=== PATIENT | male | born 1965 | race American Indian/Alaskan Native ===

== ENCOUNTER 2019-03-20 13:08 | Emergency (ER) | payer OTHER ==
[~2019-03-20] VITALS: Ht 180.3 cm; Wt 88.5 kg
--- OUTSIDE RECORDS SUMMARY | ~2019-03-20 | XMS | Clinical Summary ---
Demographics + + + | Address | [address] | | | [place] [address] | + + + | Home Phone | | + + + | Preferred Language | Unknown | + + + | Marital Status | Unknown | + + + | Druze Affiliation | Unknown | + + + | Race | Unknown | + + + | Ethnic Group | Unknown | + + + Author + + + | Author | Merged With [facility] (Historical as of | | | 02-05-19) | + + + | Organization | Merged With [facility] (Historical as of | | | 02-05-19) | + + + | Address | Unknown | + + + | Phone | Unavailable | + + + Support + + + + + | Name | Relationship | Address | Phone | + + + + + | Amanda Medina | ECON | [address] | | | | | [place], [place] | | | | | [address] | | + + + + + Care Team Providers + +------+ + | Care Parts Processor Name | Role | Phone | + +------+ + | Kanika Dominguez PA-C | PP | | + +------+ + Allergies Not on File Current Medications Not on file Active Problems Not on file Social History + +-------+ +--------+------+ | Tobacco Use | Types | Packs/Day | Years | Date | | | | | Used | | + +-------+ +--------+------+ | Never Assessed | | | | | + +-------+ +--------+------+ + + + | Sex Assigned at | Date Recorded | | | | + + + | Not on file | | + + + Plan of Treatment + + + + + | Health Maintenance | Due Date | Last Done | Comments | + + + + + | Vaccine: | | | | | Dtap/Tdap/Td (1 - | 6 | | | | Tdap) | | | | + + + + + | Colon Cancer | | | | | Screening | 7 | | | | (Colonoscopy) | | | | + + + + + | Vaccine: Zoster (1 | | | | | of 2) | 7 | | | + + + + + | Vaccine: Influenza | | | | | (#1) | 9 | | | + + + + + Results Not on filefrom Last 3 Months Insurance + +--------+ +------+-------+ + | Payer | Benefi | Subscriber | Type | Phone | Address | | | t Plan | ID | | | | | | / | | | | | | | Group | | | | | + +--------+ +------+-------+ + | [employer] | YELLOW | [id number] | | | | | PLANS | [place] | | | | | + +--------+ +------+-------+ + | MEDICAID | [place] | [id number] | | | [address] | | | N | | | | [place] | | | [place] | | | | [address] | | | [employer]NER [place] | | | | | + +--------+ +------+-------+ + + +--------+ +--------+ + + | Guarantor Name | Accoun | Relation to | Date | Phone | Billing Address | | | t Type | Patient | of | | | | | | | | | | + +--------+ +--------+ + + | [place] | Person | Self [birth year] Home: | [address] | | | al/Fam | | 1966 | [phone] | [place] [address] | | | [place] | | | [address] | | + +--------+ +--------+ + +"
--- OUTSIDE RECORDS SUMMARY | ~2019-03-20 | XMS | Clinical Summary ---
Demographics + + + | Address | [address] | | | [place] [address] | + + + | Home Phone | | + + + | Preferred Language | Unknown | + + + | Marital Status | Unknown | + + + | Oriental Orthodox Affiliation | Unknown | + + + | Race | Unknown | + + + | Ethnic Group | Unknown | + + + Author + + + | Author | [facility] (Historical as of | | | 02-05-19) | + + + | Organization | [facility] (Historical as of | | | 02-05-19) | + + + | Address | Unknown | + + + | Phone | Unavailable | + + + Support + + + + + | Name | Relationship | Address | Phone | + + + + + | Amanda Medina | ECON | [address] | | | | | [place], [place] | | | | | [address] | | + + + + + Care Team Providers + +------+ + | Care Director Of Casework Department Name | Role | Phone | + [...] | | + +--------+ +------+-------+ + | [employer] [facility] | YELLOW | [id number] | | | | | PLANS | [place] | | | | | + +--------+ +------+-------+ + | MEDICAID | [place] | [id number] | | | [address] | | | N | | | | [place] | | | [place] | | | | [address] | | | 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
--- OUTSIDE RECORDS SUMMARY | ~2019-03-20 | XMS | Clinical Summary ---
Demographics + + + | Address | [address] | | | [place] [address] | + + + | Home Phone | | + + + | Preferred Language | Unknown | + + + | Marital Status | | + + + | Synagogue Affiliation | Unknown | + + + | Race | Unknown | + + + | Ethnic Group | Unknown | + + + Author + + + | Author | [facility] | | | and [place] | + + + | Organization | [facility] | | | and [place] | + + + | Address | Unknown | + + + | Phone | Unavailable | + + + Support + + +---------+ + | Name | Relationship | Address | Phone | + + +---------+ + | Close,Barbara | ECON | Unknown | | + + +---------+ + Care Team Providers + +------+ + | Care Hand Etcher Name | Role | Phone | + [...] + +---------+ + | Alcohol Use | Drinks/We | oz/Week | Comments | | | ek | | | + + +---------+ + | No | 0 | 0.0 | | | | Standard | | | | | drinks or | | | | | | | | | | equivalen | | | | | t | | | + + +---------+ + [...] Filed Vital Signs + + + + | Vital Sign | Reading | Time Taken | + + + + | Blood Pressure | 120/80 | 03/22/2018 1130 PDT | + + + + | Pulse | 85 | 03/22/20181129 PDT | + + + + | Temperature | 36.2 C (97.2 F) | 09/02/20175 PDT | + + + + | Respiratory Rate | 16 | 03/22/20181129 PDT | + + + + | Oxygen Saturation | 98% | 03/22/20181129 PDT | + + + + | Inhaled Oxygen | - | - | | Concentration | | | + + + + | Weight | 100.7 kg (222 lb 0.1 | 03/22/2018 1130 PDT | | | oz) | | + + + + | Height | 180.3 cm (5' 11") | 02/17/2018800 PDT | + + + + | Body Mass Index | 30.96 | 02/17/2018800 PDT | + + + + Plan of Treatment [...] | [employer] | MODA | [id number] | | [phone] | | Medica | | MEDICAID HMO | HEALTH | | 017-Pr | 1 | | id | | | MDCD | | esent | | | | | | HMO [place] | | | | | | + +--------+ +--------+ +---------+--------+ | [facility] | IHS | [id number] | 06/22/19 | | | Indemn | | SERVICE | YELLOW | | 01-Pre | | | margauxy | | | [place] | | sent | | | | [...] | [address] | | | al/Fam | | 1966 | [phone] | [place] | | | [place] | | | [address] ([place]) | [address] | + +--------+ +--------+ + + Advance Directives Patient has advance care planning documents, and code status on file. For more information, please contact:[facility] [place] [address] + + + + + | Code Status | Date | Date | Comments | | | Activated | Inactivated | | + + + + + | Full Code | 09/02/2017 | 09/02/2017 | | | | 16:50 | 19:06 | | + + + + +
--- OUTSIDE RECORDS SUMMARY | ~2019-03-20 | XMS | Clinical Summary ---
Demographics + + + | Address | [address] | | | [place] [address] | + + + | Home Phone | | + + + | Preferred Language | Unknown | + + + | Marital Status | | + + + | Voodoo Affiliation | Unknown | + + + | Race | Unknown | + + + | Ethnic Group | Unknown | + + + Author + + + | Author | [facility] | | | and [place] | + + + | Organization | [facility] | | | [...] Team Providers + +------+ + | Care Brick Off Bearer Name | Role | Phone | + [...] | [employer] | MODA | [id number] | | [phone] | | Medica | | MEDICAID HMO | HEALTH | | 017-Pr | 1 | | id | | | MDCD | | esent | | | | | | HMO [place] | | | | | | + +--------+ +--------+ +---------+--------+ | [facility] | IHS | [id number] | 06/22/19 | | | Indemn | [...] | | [place] | | | [address] ([place]) | [address] | + +--------+ +--------+ + + Advance Directives Patient has advance care planning documents, and code status on file. For more information, please contact:[facility] [place] [address] + + + + + | Code Status | Date | Date | Comments | | | Activated | Inactivated | | + + + + + | Full Code | 09/02/2017 | 09/02/2017 | | | | 16:50 | 19:06 | | + + + + +
[~2019-03-20 13:08] MED LIST: ACETAMINOPHEN-1 EAC1 PO; AUGMENTIN 875-1 EACH PO; CEPHALEXIN500 MG PO; CIALIS5 MG PO; HYDROCHLOROTHIA25 MG PO; LISINOPRIL20 MG PO; NORCO 5-325 TA1 EACH PO; PREDNISONE20 MG PO; TESTOSTERO100 MG/1 M IM; TRAZODONE HCL50 MG PO
--- OUTSIDE RECORDS SUMMARY | 2019-03-20 13:10 | XMS ---
PreManage Notification: [place] Security Safety Net Maker Events No recent Security Events currently on file [facility] There are no care providers on record at this time. Moris has no Care Guidelines for this patient. Ivon VISIT COUNT (12 MO.) 2 [facility] TOTAL 2 NOTE: Visits indicate total known visits. ED/UCC VISIT TRACKING (12 MO.) 03/20/2019 13:09 [facility] [place] TYPE: Emergency COMPLAINT: - HAND PAIN 04/09/2018 18:[address] [facility] [place] TYPE: Emergency COMPLAINT: - TOOTH PAIN DIAGNOSES: - Other care home (current) drug therapy - Tobacco use - Essential (primary) hypertension - Other specified disorders of teeth and supporting structures INPATIENT VISIT TRACKING (12 MO.) No inpatient visits to display in this time frame [email or web address]
[2019-03-20] MEDS ORDERED: DOXYCYCLINE HY100 MG PO (13:44)
== END 2019-03-20 13:54 | disposition home or self-care (01) ==
LOC: ED 13:08
DX: L03.011 Cellulitis of right finger (principal); I10 Essential (primary) hypertension; Z87.891 Personal history of nicotine dependence; Z79.899 Other long term (current) drug therapy
CPT/HCPCS: 99283

== ENCOUNTER 2019-07-05 13:39 | Emergency (ER) | payer OTHER ==
[~2019-07-05] VITALS: Ht 180.3 cm; Wt 88.5 kg
--- OUTSIDE RECORDS SUMMARY | ~2019-07-05 | XMS | Encounter Summary ---
Demographics + + + | Address | [address] | | | [place] [address] | + + + | Home Phone | | + + + | Preferred Language | Unknown | + + + | Marital Status | | + + + | Latter Day Affiliation | Unknown | + + + | Race | Unknown | + + + | Ethnic Group | Unknown | + + + Author + + + | Author | [facility] | | | and [place] | + + + | Organization | [facility] | | | and [place] | + + + | Address | Unknown | + + + | Phone | Unavailable | + + + Support + + +---------+ + | Name | Relationship | Address | Phone | + + +---------+ + | Barbara Close | ECON | Unknown | | + + +---------+ + Care Team Providers + +------+ + | Care Inside Sales Coordinator Name | Role | Phone | + +------+ + | Kanika Dominguez PA-C | PCP | | + +------+ + Encounter Details +--------+ + + + + | Date | Type | Department | Care Team | Description | +--------+ + + + + | 06/29/ | Abstract | [facility] [place] | Surya Brower, | | | 2015 | | [address]UR[address]UR[address] | [place] [address] | | | | | [address] | [address] [place] | | | | | [place] | [place] [address] | | | | | [address] | [phone] | | | | | [phone] | | | +--------+ + + + + Social History + +-------+ +--------+------+ | Tobacco Use | Types | Packs/Day | Years | Date | | | | | Used | | + +-------+ +--------+------+ | Never Smoker | | | | | + +-------+ +--------+------+ + +------+---+---+ | Smokeless Tobacco: | Chew | | | | Former User | | | | + +------+---+---+ + + | Comments: QUIT 03/22/10 | + + + + +---------+ + | Alcohol Use | Drinks/Week | oz/Week | Comments | + + +---------+ + | No | 0 Standard drinks | 0.0 | | | | or equivalent | | | + + +---------+ + + + + | Sex Assigned at | Date Recorded | | | | + + + | Not on file | | + + + + + + + | Job Start Date | Occupation | Industry | + + + + | Not on file | Not on file | Not on file | + + + + + + + + | Travel History | Travel Start | Travel End | + + + + + + | No recent travel history available. | + + documented as of this encounter Plan of Treatment Not on filedocumented as of this encounter Visit Diagnoses Not on filedocumented in this encounter"
--- OUTSIDE RECORDS SUMMARY | ~2019-07-05 | XMS | Encounter Summary ---
Demographics + + + | Address | [address] | | | [place] [address] | + + + | Home Phone | | + + + | Preferred Language | Unknown | + + + | Marital Status | | + + + | Temple Affiliation | Unknown | + + + | Race | Unknown | + + + | Ethnic Group | Unknown | + + + Author + + + | Author | [facility] | | | and [place] | + + + | Organization | [facility] | | | [...] Team Providers + +------+ + | Care Plumber'S Helper Name | Role | Phone | + +------+ + | Kanika Dominguez PA-C | PCP | | + +------+ + Encounter Details +--------+ + + + + | Date | Type | Department | Care Team | Description | +--------+ + + + + | 11/22/ | Orders Only | [facility] [place] | Uday Quezada, | Left lumbar | | 2016 | | NEUROSUR[address]ERY [address] | DO [address] | radiculopathy; | | | | [address] | [address] [place] | Chronic low back | | | | [place], [place] | [address] | pain, unspecified | | | | [address] | | back pain | | | | [phone] | | laterality, with | | | | | | sciatica presence | | | | | | unspecified; DDD | | | | | | (degenerative disc | | | | | | disease), lumbar; | | | | | | Spinal stenosis of | | | | | | lumbar region; Facet | | | | | | arthritis of lumbar | | | | | | region ([facility]) | +--------+ + + + + Social History + +-------+ +--------+------+ | Tobacco Use | Types | Packs/Day | Years | Date | | | | | Used | | + +-------+ +--------+------+ | Never Smoker | | | | | + +-------+ +--------+------+ + +------+---+---+ | Smokeless Tobacco: | Chew | | | | Current User | | | | + +------+---+---+ + + | Comments: PARRISH 03/22/10 Started using in April 2015 | + + + + +---------+ + [...] filedocumented as of this encounter Visit Diagnoses + + | Diagnosis | + + | Left lumbar radiculopathy Thoracic or lumbosacral neuritis or radiculitis, | | unspecified | + + | Chronic low back pain, unspecified back pain laterality, with sciatica presence | | unspecified | + + | DDD (degenerative disc disease), lumbar Degeneration of lumbar or lumbosacral | | intervertebral disc | + + | Spinal stenosis of lumbar region Spinal stenosis, lumbar region, without neurogenic | | claudication | + + | Facet arthritis of lumbar region Lumbosacral spondylosis without myelopathy | + + documented in this encounter"
--- OUTSIDE RECORDS SUMMARY | ~2019-07-05 | XMS | Encounter Summary ---
Demographics + + + | Address | [address] | | | [place] [address] | + + + | Home Phone | | + + + | Preferred Language | Unknown | + + + | Marital Status | | + + + | Moravian Affiliation | Unknown | + + + | Race | Unknown | + + + | Ethnic Group | Unknown | + + + Author + + + | Author | [facility] | | | and [place] | + + + | Organization | [facility] | | | and [...] Team Providers + +------+ + | Care General Office Assistant Name | Role | Phone | + +------+ + | Kanika Dominguez PA-C | PCP | | + +------+ + Encounter Details +--------+ + + + + | Date | Type | Department | Care Team | Description | +--------+ + + + + | 07/02/ | Hospital | [facility] | Uday Quezada, | Back pain, | | 2016 | Encounter | MED [address] XRAY [address] | DO [address] | unspecified back | | | | [place] | [address] [place] | pain laterality, | | | | [place] [address] | [id number] | unspecified location | | | | [phone] | | | +--------+ + + + [...] +------+---+---+ + + | Comments: QUIT 03/22/10 Started using in April 2015 | [...] + + documented as of this encounter Medications at Time of Discharge + + + +---------+--------+ + | Medication | Sig | Dispensed | Refills | Start | End Date | | | | | | Date | | + + + +---------+--------+ + | tadalafil (CIALIS) | Take 5 mg by mouth | | 0 | | | | 5 MG tablet | as needed for | | | | | | | Erectile | | | | | | | Dysfunction. | | | | | + + + +---------+--------+ + | acetaminophen | Take 325 mg by mouth | | 0 | | | | (TYLENOL) 325 mg | every 4 hours as | | | | 7 | | tablet | needed for Pain. | | | | | + + + +---------+--------+ + | | Take 325 tablets by | | 0 | | | | Acetaminophen-Codein | mouth Daily as | | | | 6 | | e (TYLENOL WITH | needed. Every 4 hrs | | | | | | CODEINE #3 PO) | | | | | | + + + +---------+--------+ + | | Take 1-2 tablets by | | 0 | | | | HYDROcodone-acetamin | mouth every 6 hours | | | | 7 | | ophen (NORCO) 5-325 | as needed for Pain. | | | | | | mg per tablet | | | | | | + + + +---------+--------+ + | lisinopril | Take 40 mg by mouth | | 0 | | | | (PRINIVIL,ZESTRIL) | Daily. | | | | 8 | | 40 MG tablet | | | | | | + + + +---------+--------+ + | Naproxen Sodium | Take 440 tablets by | | 0 | | | | (ALEVE PO) | mouth Daily. | | | | 7 | + + + +---------+--------+ + | | Take 1 tablet by | | 0 | | | | oxyCODONE-acetaminop | mouth every 8 hours | | | | 6 | | hen (PERCOCET) 5-325 | as needed for Pain. | | | | | | mg per tablet | | | | | | + + + +---------+--------+ + | Testosterone 12.5 | by Implant route. | | 0 | | | | MG PLLT | | | | | 8 | + + + +---------+--------+ + | traMADol (ULTRAM) | Take 50 mg by mouth | | 0 | | | | 50 mg tablet | every 6 hours as | | | | 7 | | | needed for Pain. | | | | | + + + +---------+--------+ + documented as of this encounter Plan of Treatment Not on filedocumented as of this encounter Procedures + +--------+ + + + | Procedure Name | Priori | Date/Time | Associated Diagnosis | Comments | | | ty | | | | + +--------+ + + + | XR LUMBAR SPINE 4 + | Routin | 07/02/2015 | Back pain, | Results for this | | VW | e | 1:41 PM | unspecified back | procedure are in the | | | | PST | pain laterality, | results section. | | | | | unspecified location | | + +--------+ + + + documented in this encounter Results XR Lumbar Spine 4 + Vw (07/02/2015 1:41 PM PST) + + | Specimen | + + | | + + + + + | Narrative | Performed At | + + + | FOUR VIEWS LUMBAR SPINE 07/02/2015 1:41 PM CLINICAL HISTORY: back | [facility] | | pain COMPARISON: LUMBAR MRI MAY 2015, LUMBAR RADIOGRAPHS | [facility] | | NOVEMBER 2011 FINDINGS: Five non rib-bearing, lumbar type vertebrae | [facility] | | are visible. An AP view and lateral views in neutral, flexed and | - IMAGING | | extended positions are provided. There is mild rightward lumbar | | | curvature. Lumbar vertebral height is maintained, without evident | | | fracture or spondylolysis. There is early disc space narrowing at | | | L4-5 and multilevel vertebral spondylosis and facet hypertrophy. | | | Mild retrolisthesis at L3-4 persists with extension but resolves | | | with flexion. Mild anterolisthesis at L4-5 persists with extension | | | but is subjectively greater with flexion. The sacroiliac joints and | | | imaged sacrum, bony pelvis and lower ribs are unremarkable. Soft | | | tissues are unremarkable. IMPRESSION - 1. RIGHTWARD LUMBAR | | | CURVATURE WITH MULTILEVEL SPONDYLOSIS AND MILD SPONDYLOLISTHESIS AT | | | L3-4 AND L4-5 DISCUSSED. Dictated and Signed by: Tommy Gomez | | | Electronically signed: 07/02/2015 3:06 PM | | + + + + + | Procedure Note | + + | Baron, Rad Results In - 07/02/2015 3:09 PM PST FOUR VIEWS LUMBAR SPINE 07/02/2015 1:41 | | PMCLINICAL HISTORY: back painCOMPARISON: LUMBAR MRI MAY 2015, LUMBAR RADIOGRAPHS | | NOVEMBER 2011FINDINGS: Five non rib-bearing, lumbar type vertebrae are visible. An AP | | viewand lateral views in neutral, flexed and extended positions are provided. Thereis | | mild rightward lumbar curvature. Lumbar vertebral height is maintained,without evident | | fracture or spondylolysis. There is early disc space narrowingat L4-5 and multilevel | | vertebral spondylosis and facet hypertrophy. Mildretrolisthesis at L3-4 persists with | | extension but resolves with flexion. Mildanterolisthesis at L4-5 persists with | | extension but is subjectively greater withflexion. The sacroiliac joints and imaged | | sacrum, bony pelvis and lower ribsare unremarkable. Soft tissues are | | unremarkable.IMPRESSION -1. RIGHTWARD LUMBAR CURVATURE WITH MULTILEVEL SPONDYLOSIS AND | | MILDSPONDYLOLISTHESIS AT L3-4 AND L4-5 DISCUSSED.Dictated and Signed by: Tommy | | MD Jason Electronically signed: 07/02/2015 3:06 PM | |flexion. The sacroiliac joints and imaged sacrum, bony pelvis and lower ribs | |are unremarkable. Soft tissues are unremarkable. | | | |IMPRESSION - | | | |1. RIGHTWARD LUMBAR CURVATURE WITH MULTILEVEL SPONDYLOSIS AND MILD | |SPONDYLOLISTHESIS AT L3-4 AND L4-5 DISCUSSED. | | | |Dictated and Signed by: Tommy Gomez MD | | Electronically signed: 07/02/2015 3:06 PM | + + + + + + + | Performing | Address | City[facility] | Phone Number | | Organization | | | | + + + + + | [facility] | [address] | [place] | [phone] | | [facility] | | [address] | | | - IMAGING | | | | + + + + + documented in this encounter Visit Diagnoses + + | Diagnosis | + + | Back pain, unspecified back pain laterality, unspecified location | + + documented in this encounter"
--- OUTSIDE RECORDS SUMMARY | ~2019-07-05 | XMS | Encounter Summary ---
Demographics + + + | Address | [address] | | | [place] [address] | + + + | Home Phone | | + + + | Preferred Language | Unknown | + + + | Marital Status | | + + + | Rastafarian Affiliation | Unknown | + + + | Race | Unknown | + + + | Ethnic Group | Unknown | + + + Author + + + | Author | [facility] | | | and [place] | + + + | Organization | [facility] | | | and [...] Team Providers + +------+ + | Care Wood Gluer Name | Role | Phone | + +------+ + | Kanika Dominguez PA-C | PCP | | + +------+ + Encounter Details +--------+ + + + + | Date | Type | Department | Care Team | Description | +--------+ + + + + | 05/01/ | Episode | [facility] [place] | [place], | | | 2017 | Changes | ORTHOPEDIC SURGERY | Leti Sanders MA | | | | | [place] | | | | | | [place] | | | | | | [address] | | | | | | [phone] | | | +--------+ + + + [...]
--- OUTSIDE RECORDS SUMMARY | ~2019-07-05 | XMS | Encounter Summary ---
Demographics + + + | Address | [address] | | | [place] [address] | + + + | Home Phone | | + + + | Preferred Language | Unknown | + + + | Marital Status | | + + + | Hinduism Affiliation | Unknown | + + + | Race | Unknown | + + + | Ethnic Group | Unknown | + + + Author + + + | Author | [facility] | | | and [place] | + + + | Organization | [facility] | | | [...] Team Providers + +------+ + | Care Shift Production Associate Name | Role | Phone | + +------+ + | Kanika Dominguez PA-C | PCP | | + +------+ + Encounter Details +--------+ + + + + | Date | Type | Department | Care Team | Description | +--------+ + + + + | 06/06/ | Orders Only | [facility] [place] | Uday Quezada, | Back pain, | | 2015 | | NEUROSURGERY [address] | DO [address] | unspecified back | | | | [address] | [address] | pain laterality, | | | | [place], [place] | [address] | unspecified location | | | | [address] | | (Primary Dx) | | | | [phone] | | | +--------+ + + + [...] Not on filedocumented as of this encounter Results XR Lumbar Spine 4 + Vw (07/02/2015 1:41 PM PST) + + | Specimen | + + | | + + + + + | Narrative | Performed At | + + + | FOUR VIEWS LUMBAR SPINE 07/02/2015 1:41 PM CLINICAL HISTORY: back | [facility] | | pain COMPARISON: LUMBAR MRI MAY 2015, LUMBAR RADIOGRAPHS | [facility] | | NOVEMBER 2011 FINDINGS: Five non rib-bearing, lumbar type vertebrae | [facility] | | are visible. An AP view [...] + + | Performing | Address | City/State/Zipcode | Phone Number | | Organization | | | | + + + + + | [facility] | [address] | [place] | [phone] | | [facility] | | [address] | | | - IMAGING | | | | + + + + + documented in this encounter Visit Diagnoses + + | Diagnosis | + + | Back pain, unspecified back pain laterality, unspecified location - Primary | + + documented in this encounter"
--- OUTSIDE RECORDS SUMMARY | ~2019-07-05 | XMS | Encounter Summary ---
Demographics + + + | Address | [address] | | | [place] [address] | + + + | Home Phone | | + + + | Preferred Language | Unknown | + + + | Marital Status | | + + + | Zoroastrianism Affiliation | Unknown | + + + | Race | Unknown | + + + | Ethnic Group | Unknown | + + + Author + + + | Author | [facility] | | | and [place] | + + + | Organization | [facility] | | | and [...] Team Providers + +------+ + | Care Hotel Room Attendant Name | Role | Phone | + +------+ + | Kanika Dominguez PA-C | PCP | | + +------+ + Reason for Visit + + + | Reason | Comments | + + + | New Patient | left shoulder pain | + + + Evaluate & Treat (Routine) +--------+ + + + + + | Status | Reason | Specialty | Diagnoses / | Referred By | Referred To | | | | | Procedures | Contact | Contact | +--------+ + + + + + | Closed | Specialty | Orthopedic | Diagnoses | Damien, | Luis Alfredo, | | | Services | Surgery | Shoulder | Uday Umanzor DO | Ramón Brown MD | | | Required | | pain, | [address] | [address] | | | | | unspecified | [address] | [place], | | | | | chronicity, | [place], [place] | [place] [address] | | | | | unspecified | [address] | Phone: | | | | | laterality | Phone: | [phone] | | | | | | [phone] | Fax: | | | | | | Fax: | [phone] | | | | | | [phone] | | +--------+ + + + + + Encounter Details +--------+---------+ + + + | Date | Type | Department | Care Team | Description | +--------+---------+ + + + | 12/04/ | Office | [facility] [place] | Uday Quezada, | Tear of left rotator | | 2017 | Visit | ORTHOPEDIC SURGERY | DO [address] | cuff, unspecified | | | | [address] | [address] [place] | tear extent (Primary | | | | [place] | [address] | Dx); Arthrosis of | | | | [address] | | left | | | | [phone] | Ramón Lobato, | acromioclavicular | | | | | MD [address] [facility] | joint; Biceps | | | | | [place] | tendonitis on left | | | | | [address] | | | | | | | | +--------+---------+ + + + Social History + +-------+ [...] + + documented as of this encounter Last Filed Vital Signs + + + + + | Vital Sign | Reading | Time Taken | Comments | + + + + + | Blood Pressure | - | - | | + + + + + | Pulse | - | - | | + + + + + | Temperature | 36.4 C (97.6 F) | 12/04/2016 3:10 PM | | | | | PDT | | + + + + + | Respiratory Rate | - | - | | + + + + + | Oxygen Saturation | - | - | | + + + + + | Inhaled Oxygen | - | - | | | Concentration | | | | + + + + + | Weight | 106.6 kg (235 lb) | 12/04/2016 3:10 PM | | | | | PDT | | + + + + + | Height | 180.3 cm (5' 11") | 12/04/2016 3:10 PM | | | | | PDT | | + + + + + | Body Mass Index | 32.78 | 12/04/2016 3:10 PM | | | | | PDT | | + + + + + documented in this encounter Progress Notes Ramón Lobato MD - 12/04/2016 3:30 PM PDTFormatting of this note might be different fro m the original. History of present illness: Gianfranco is a 51 y.o. 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 home to [facility] to work for the [employer] Past Medical History: Diagnosis Date Benign essential hypertension BPH (benign prostatic hyperplasia) Chronic low back pain 07/25/2015 DDD (degenerative disc disease), lumbar 07/25/2015 ED (erectile dysfunction) Facet arthritis of lumbar region (HCC) 07/25/2015 History of tobacco use Left hip pain Left lumbar radiculopathy 10/30/2015 Lumbosacral radiculopathy Male hypogonadism Right knee sprain 12/05/1992 Spinal stenosis of lumbar region Spinal stenosis of lumbar region 07/25/2015 Spondylosis 03/20/2011 Past Surgical History: Procedure Laterality Date FACET NEUROTOMY [place] INJECTION FORAMEN EPIDURAL L/S INJECTION LUMBAR/SACRAL No Known Allergies Current Outpatient Prescriptions on File Prior to Visit Medication Sig Dispense Refill lisinopril (PRINIVIL,ZESTRIL) 40 MG tablet Take 40 mg by mouth Daily. naproxen (NAPROSYN) 500 mg tablet NARCAN 4 MG/0.1ML instill 1 spray IN 1 NOSTRIL may repeat EVERY 2 TO 3 MINUTES UNTIL EM ERGENCY ARRIVES 0 SM NICOTINE 4 MG gum tadalafil (CIALIS) 5 MG tablet Take 5 mg by mouth as needed for Erectile Dysfunction. Testosterone 12.5 MG PLLT by Implant route. traMADol (ULTRAM-ER) 300 MG 24 hr tablet 0 No current facility-administered medications on file prior to visit. Family History Problem Relation Age of Onset Rheum arthritis Other AUNT Alcohol abuse Other UNKNOWN RELATION Diabetes Other UNKNOWN RELATION Hypertension Other UNKNOWN RELATION Arthritis Mother Social History Social History Marital status: Spouse name: N/A Number of children: 3 Years of education: N/A Occupational History [employer] Social History Main Topics Smoking status: Never Smoker Smokeless tobacco: Current User Types: Chew Comment: QUIT 03/22/10 Started using in April 2015 Alcohol use No Drug use: No Sexual activity: Yes Partners: Female Other Topics Concern Not on file Social History Narrative No narrative on file Review of Systems This has been reviewed. All other entries are negative except for those checked below. [place] Eyes: [] Double vision [] Glasses/contacts [] Failing vision Ear/Nose/Throat: [] Frequent Colds [] Sinus Disease [] Nose obstruction [] Sneezing Spells [] Change in taste [] Artificial teeth [] Ears ringing [] Ear pain [] Hearing loss [] Teeth problems [] Hoarseness [] Neck swelling [] Sore throat [] Congestion [] Nosebleeds [] Nasal allergies Respiratory: [] Asthma/Wheezing [] Pneumonia [] Night sweats [] Shortness of breath [] Chronic cough [] Coughing up blood [] Exposure to tuberculosis Cardiovascular: [] Heart Problems [x] Hypertension [] Heart murmur [] Palpitations [] Rheumatic fever [] Phlebitis [] Chest pain [] Ankle swelling [] Leg cramps [] Racin g heart [] Skipping beats [] Blood clots Gastrointestinal: [] Abdominal pain [] Heartburn [] Blood from rectum [] Colitis [] Gallbladder problems [] Troubl e swallowing [] Bloated stomach [] Change in stools [] Vomiting blood [] Nausea [] Hemorrhoids [] Jaundice [ ] Hepatitis [] Diarrhea [] Constipation [] Diverticulitis Urinary Tract: [] Painful urination [] Kidney Stones [] Any urine leakage [] Weak urine stream [] Night urination [] Urine infections [] Bedwetting [] Blood in urine Skin: [] Skin rashes [] Itching/Burning [] Skin bruises easil y [] Artificial tanning [] Skin cancer [] Hair loss [] Changes in moles Musculoskeletal: [] Physical handicaps [x] Back or shoulder pain []Rheumatoid disease [] Osteoarthritis [x] Joint pain [] Joint swelling []Gout [] Leg cramps at night Neurological: [] Headaches [] Seizures [] Stroke/TIA [] Faintness [] Tremors [] Numbness [] Dizziness [] Changes in handwriting [] Memory loss [] Shooting pains Psychiatric: [] Depression [] Suicidal thoughts [] Sleep pattern changes [] Appetite changes [] Recent counseling [] Nervousness/anxiety [] Physical violence [] Marital problems Endocrine: [] Thyroid [] Diabetes Systemic: []Weight loss/gain (over 10 lbs) []Fever/chills []Fatigue [] Sleeping Difficulties [] Speech change [] Voice change Vitals: 12/04/16 1510 Temp: 36.4 C (97.6 F) PainSc: 8 PainLoc: Shoulder Estimated body mass index is 32.78 kg/m as calculated from the following: Height as of this encounter: 1.803 m (5' 11"). Weight as of this encounter: 106.6 kg (235 lb). On physical exam he has well localized tenderness directly over the AC joint He does have some asymmetry between sides with more prominence of the distal clavicle on th e left He has a negative drop arm sign He has pain with resisted abduction in the scapular plane He has tightness and trigger points in his SCM musculature He has good passive range of motion with both shoulders symmetrical Full forward elevation and abduction bilaterally 70 degrees external rotation both shoulders with arm at sides Internal rotation on the right thumb to lower thoracic spine and on the left to lower lumba r spine Negative chris lift off sign He is tender over the coracoacromial arch MRI images reviewed by me and show full thickness non detached supraspinatous tear anterior ly He has medial subluxation of the long head biceps tendon out of the groove The AC joint is degenerative He has signal change in the anterior labrum consistent with tear He doesn't appear to have glenohumeral joint arthrosis Assessment: left shoulder rotator cuff tear and AC arthrosis The natural history and treatment options discussed at length with him today I don't think that instability of his shoulder is a major issue now that he is 51 years old I think the problems of his shoulder now are degenerative in his cuff, AC joint and biceps tendon Since the cuff abnormality is full thickness but not huge and not retracted I think he has the option of continued conservative management with cuff rehab and observation over time However if he can't live with the current symptoms that have been chronic I would offer him surgical repair This would consist of a shoulder arthroscopy to evaluate the joint and do a limited shaving of labral flaps and near tenotomy of the biceps tendon The open part of the surgery would consist of acromioplasty, distal clavicle excision and d ebridement intraarticular portion of the biceps with tenodesis and cuff repair The length of time of recovery and the restrictions needed to protect the repair outlined He will consider his options, think things over and let us know if he wishes to proceed wit h scheduling documented in this en counter Plan of Treatment Not on filedocumented as of this encounter Procedures + +--------+ + + + | Procedure Name | Priori | Date/Time | Associated Diagnosis | Comments | | | ty | | | | + +--------+ + + + | LABS - EXTERNAL SCAN | | 06/09/2017 | | Results for this | | | | 12:00 AM | | procedure are in the | | | | PST | | results section. | + +--------+ + + + documented in this encounter Results LABS - EXTERNAL SCAN (06/09/2017 12:00 AM PST) + + + | Narrative | Performed At | + + + | Ordered by an | | | unspecified provider. | | + + + documented in this encounter Visit Diagnoses + + | Diagnosis | + + | Tear of left rotator cuff, unspecified tear extent - Primary | + + | Arthrosis of left acromioclavicular joint | + + | Biceps tendonitis on left Bicipital tenosynovitis | + + documented in this encounter
--- OUTSIDE RECORDS SUMMARY | ~2019-07-05 | XMS | Encounter Summary ---
Demographics + + + | Address | [address] | | | [place] [address] | + + + | Home Phone | | + + + | Preferred Language | Unknown | + + + | Marital Status | | + + + | Anabaptist Affiliation | Unknown | + + + | Race | Unknown | + + + | Ethnic Group | Unknown | + + + Author + + + | Author | [facility] | | | and [place] | + + + | Organization | [facility] | | | and [place] | + + + | Address | Unknown | + + + | Phone | Unavailable | + + + Support + + +---------+ + | Name | Relationship | Address | Phone | + + +---------+ + | [place] [address] | ECON | Unknown | | + + +---------+ + Care Team Providers + +------+ + | Care Leadite Heater Name | Role | Phone | + +------+ + | Kanika Dominguez PA-C | PCP | | + +------+ + Reason for Visit + + + | Reason | Comments | + + + | Appointment | | + + + Encounter Details +--------+ + + + + | Date | Type | Department | Care Team | Description | +--------+ + + + + | 06/29/ | Telephone | [facility] | Lance Flores PA | Appointment | | 2019 | | SLEEP DISORDER [address] | [address] | | | | | [address] [place] | [place], [place] | | | | | [place] [address] | [address] | | | | | [phone] | | | +--------+ + + + + Social History + +-------+ +--------+------+ | Tobacco Use | Types | Packs/Day | Years | Date | | | | | Used | | + +-------+ +--------+------+ | Never Smoker | | | | | + +-------+ +--------+------+ + +------+---+---------+ | Smokeless Tobacco: | Chew | | Quit: | | Former User | | | 05/2017 | + +------+---+---------+ + + | Comments: QUIT 03/22/10 Started [...]
--- OUTSIDE RECORDS SUMMARY | ~2019-07-05 | XMS | Encounter Summary ---
Demographics + + + | Address | [address] | | | [place] [address] | + + + | Home Phone | | + + + | Preferred Language | Unknown | + + + | Marital Status | | + + + | Baptism Affiliation | Unknown | + + + [...] Team Providers + +------+ + | Care Display Maker Name | Role | Phone | + +------+ + | Kanika Dominguez PA-C | PCP | | + +------+ + Encounter Details +--------+ + + + + | Date | Type | Department | Care Team | Description | +--------+ + + + + | 08/20/ | Preadmit | [facility] | Ramón Lobato, | Hypertension, | | 2018 | Visit | [facility] | MD Babatunde MYERS | unspecified type | | | | CLINIC [address] | [place] | (Primary Dx) | | | | [place] | [address] | | | | | [address] | | | | | | [phone] | | | +--------+ + + + [...] | + +--------+ + + + | ECG 12 LEAD | Routin | 08/20/2017 | Hypertension, | Results for this | | | e | 3:30 PM | unspecified type | procedure are in the | | | | PST | | results section. | + +--------+ + + + | HEMOGLOBIN | Routin | 08/20/2017 | Hypertension, | Results for this | | | e | 3:23 PM | unspecified type | procedure are in the | | | | PST | | results section. | + +--------+ + + + documented in this encounter Results ECG 12 lead (08/20/2017 3:30 PM PST) + + + + + + | Component | Value | Ref Range | Performed | Pathologist | | | | | At | Signature | + + + + + + | VENTRICULAR | 91 | BPM | [facility] | | | RATE EKG | | | | | + + + + + + | ATRIAL RATE | 91 | BPM | [facility] | | + + + + + + | P-R | 174 | ms | [facility] | | | INTERVAL | | | | | + + + + + + | QRS | 108 | ms | [facility] | | | DURATION | | | | | + + + + + + | Q-T | 346 | ms | [facility] | | | INTERVAL | | | | | + + + + + + | Q-T | 425 | ms | [facility] | | | INTERVAL | | | | | | (CORRECTED) | | | | | + + + + + + | P WAVE AXIS | 40 | degrees | [facility] | | + + + + + + | QRS AXIS | 102 | degrees | [facility] | | + + + + + + | T AXIS | 40 | degrees | [facility] | | + + + + + + | INTERPRETAT | Normal sinus | | [facility] | | | ION TEXT | rhythmRightward | | | | | | axisNonspecific ST | | | | | | abnormalityBorderline | | | | | | ECGNo previous ECGs | | | | | | availableConfirmed by | | | | | | ANISA LENZ MD ([id number]) | | | | | | on 08/20/2017 5:13:51 PM | | | | + + + + + + + + | Specimen | + + | | + + + + + | Narrative | Performed At | + + + | | | + + + + +---------+ + + | Performing | Address | City/State/Zipcode | Phone Number | | Organization | | | | + +---------+ + + | [facility] | | | | + +---------+ + + Hemoglobin (08/20/2017 3:23 PM PST) + +-------+ + + + | Component | Value | Ref Range | Performed | Pathologist | | | | | At | Signature | + +-------+ + + + | Hemoglobin | 17.4 | 13.5 - 18.0 | [facility] | | | | | g/dL | [facility] | | | | | | [facility] | | | | | | [facility] - | | | | | | LABORATORY | | + +-------+ + + + + + | Specimen | + + | Blood | + + + + + + + | Performing | Address | City/State/Zipcode | Phone Number | | Organization | | | | + + + + + | [facility] | [address] | [place] | [phone] | | [facility] | | [address] | | | - LABORATORY | | | | + + + + + documented in this encounter Visit Diagnoses + + | Diagnosis | + + | Hypertension, unspecified type - Primary | + + documented in this encounter"
--- OUTSIDE RECORDS SUMMARY | ~2019-07-05 | XMS | Encounter Summary ---
Demographics + + + | Address | [address] | | | [place] [address] | + + + | Home Phone | | + + + | Preferred Language | Unknown | + + + | Marital Status | | + + + | Rastafarian Affiliation | Unknown | + + + | Race | Unknown | + + + | Ethnic Group | Unknown | + + + Author + + + | Author | [facility] | | | and [place] | + + + | Organization | [facility] | | | [...] Team Providers + +------+ + | Care Neckties Painter Name | Role | Phone | + +------+ + | Kanika Dominguez PA-C | PCP | | + +------+ + Reason for Referral Diagnostic/Screening (Routine) +--------+--------+ + + + + | Status | Reason | Specialty | Diagnoses / | Referred By | Referred To | | | | | Procedures | Contact | Contact | +--------+--------+ + + + + | Closed | | Radiology | Diagnoses | Alberto, | [facility] | | | | | Low back | Kanika Carballo, | SHIRAE | | | | | pain, | [address] | [place] | | | | | unspecified | [place] | MEDICAL | | | | | back pain | [facility] | [place] [address] | | | | | laterality, | [address] | [place] | | | | | unspecified | [place], | [place], | | | | | chronicity, | [place] | [place] [address] | | | | | with | [phone] | Phone: | | | | | sciatica | Phone: | [phone] | | | | | presence | [phone] | Fax: | | | | | unspecified | Fax: | [phone] | | | | | Procedures | [phone] | | | | | | MRI Lumbar | | | | | | | Spine wo | | | | | | | Contrast | | | +--------+--------+ + + + + Reason for Visit Diagnostic/Screening (Routine) +--------+--------+ + + + + | Status | Reason | Specialty | Diagnoses / | Referred By | Referred To | | | | | Procedures | Contact | Contact | +--------+--------+ + + + + | Closed | | Radiology | Diagnoses | Bourret, | [facility] | | | | | Low back | Kanika H, | [place] | | | | | pain, | [address] | [place] | | | | | unspecified | [place] | MEDICAL | | | | | back pain | [facility] | [place] [address] | | | | | laterality, | [address] | [place] | | | | | unspecified | [place], | [place], | | | | | chronicity, | [place] | [place] [address] | | | | | with | [phone] | Phone: | | | | | sciatica | Phone: | [phone] | | | | | presence | [phone] | Fax: | | | | | unspecified | Fax: | [phone] | | | | | Procedures | [phone] | | | | | | MRI Lumbar | | | | | | | Spine wo | | | | | | | Contrast | | | +--------+--------+ + + + + Encounter Details +--------+ + + + + | Date | Type | Department | Care Team | Description | +--------+ + + + + | 11/24/ | Hospital | [facility] | Kanika Dominguez | Low back pain, | | 2018 | Encounter | [facility] MRI [address] | unspecified back | | | | [place], | [facility] | pain laterality, | | | | [place] [address] | [address] [place], [place] | unspecified | | | | [phone] | [address] | chronicity, with | | | | | [phone] | sciatica presence | | | | | | unspecified | +--------+ + + + + Social [...] at Time of Discharge + + + +---------+ + + | Medication | Sig | Dispensed | Refills | Start | End Date | | | | | | Date | | + + + +---------+ + + | lisinopril | | | 0 | 04/25/20 | | | (PRINIVIL,ZESTRIL) | | | | 18 | | | 40 MG tablet | | | | | | + + + +---------+ + + | NARCAN 4 MG/0.1ML | instill 1 spray IN 1 | | 0 | / | | | | NOSTRIL may repeat | | | 17 | | | | EVERY 2 TO 3 MINUTES | | | | | | | UNTIL EMERGENCY | | | | | | | ARRIVES | | | | | + + + +---------+ + + | tadalafil (CIALIS) | Take 5 mg by mouth | | 0 | | | | 5 MG tablet | as needed for | | | | | | | Erectile | | | | | | | Dysfunction. | | | | | + + + +---------+ + + | testosterone | Apply 25 mg of | | 0 | | | | (ANDROGEL) 25 mg/2.5 | testosterone | | | | | | g (1%) gel | topically Daily. | | | | | + + + +---------+ + + | irbesartan | Take 150 mg by mouth | | 0 | 08/04/19 | | | (AVAPRO) 150 MG | Daily. | | | 18 | 8 | | tablet | | | | | | + + + +---------+ + + | naproxen | Take 500 mg by mouth | | 0 | 10/15/19 | | | (NAPROSYN) 500 mg | Twice daily as | | | 17 | 8 | | tablet | needed. | | | | | + + + +---------+ + + | | Take 1 tablet by | | 0 | 12/04/19 | | | oxyCODONE-acetaminop | mouth every 6 hours | | | 17 | 8 | | hen (PERCOCET) | as needed. | | | | | | 10-325 mg per tablet | | | | | | + + + +---------+ + + | traMADol | Take 300 mg by mouth | | 0 | 10/04/19 | | | (ULTRAM-ER) 300 MG | Daily. | | | 17 | 8 | | 24 hr tablet | | | | | | + + + +---------+ + + documented as of this encounter Plan of Treatment Not on filedocumented as of this encounter Procedures + +--------+ + + + | Procedure Name | Priori | Date/Time | Associated Diagnosis | Comments | | | ty | | | | + +--------+ + + + | MRI LUMBAR SPINE WO | Routin | 11/24/2017 | Low back pain, | Results for this | | CONTRAST | e | 10:00 AM | unspecified back | procedure are in the | | | | PDT | pain laterality, | results section. | | | | | unspecified | | | | | | chronicity, with | | | | | | sciatica presence | | | | | | unspecified | | + +--------+ + + + documented in this encounter Results MRI Lumbar Spine wo Contrast (11/24/2017 10:00 AM PDT) + + | Specimen | + + | | + + + + -----+ | Narrative | Performed At | + + -----+ | MRI LUMBAR | [facility] | | SPINE WO CONTRAST 11/24/2017 9:56 AM HISTORY: Low back pain. | | | COMPARISON: Multiple priors most recently 05/29/2015. PROTOCOL: | | | Sagittal T2, sagittal T1, axial T2, axial T1, sagittal STIR, | | | coronalT2. FINDINGS:Vertebral body height are preserved. Mild disc | | | narrowing is at L4-5. Disc desiccation are at L3-4 and L4-5. Imaged | | | spinal cord and cauda equina demonstrate normal signal with no | | | evidencefor myelomalacia or mass lesions. The conus medullaris | | | terminates at level L1,which is normal. There are congenitally short | | | pedicles that decrease the size ofthe central canal. Sagittal images | | | demonstrate mild central stenosis at L2-3 due to congenitallyshort | | | pedicles. L3-4: A 3 mm posterior disc bulge is present with tearing of | | | the annulus.Moderate facet hypertrophy and ligamentum hypertrophy are | | | noted. A small amountof facet fluid are present. There is moderate | | | central stenosis with AP dimensionof the canal measuring 8 mm. Mild to | | | moderate bilateral neural foraminal canalstenoses are seen. | | | Degenerative changes at this level remain stable compared to05/29/2015. | | | L4-5: A 2 mm posterior disc bulge is present along with moderate | | | facethypertrophy and ligamentum flavum hypertrophy. There is moderate | | | centralstenosis transversely with the canal measuring 8 mm. Moderate | | | bilateral neuralforaminal canal stenoses are seen. The amount of disc | | | bulging has decreasedcompared to the prior study. L5-S1: A 1 mm | | | posterior disc bulge is observed along with mild facethypertrophy. | | | There is no stenosis. Imaged abdomen and pelvis demonstrate no acute | | | findings. IMPRESSION -Multilevel degenerative changes along with | | | congenitally short pedicles thatdecrease the size of the central | | | canal. Moderate central stenoses are at L3-4and L4-5 with stability at | | | L3-4 and improvement at L4-5. Neural foraminal canalstenoses are at | | | these levels as described above. Dictated and Signed by: William Gerber, | | | Electronically signed: 11/24/2017 10:48 AM | | |hypertrophy and ligamentum flavum hypertrophy. There is moderate central | | |stenosis transversely with the canal measuring 8 mm. Moderate bilateral neural | | |foraminal canal stenoses are seen. The amount of disc bulging has decreased | | |compared to the prior study. | | | | | |L5-S1: A 1 mm posterior disc bulge is observed along with mild facet | | |hypertrophy. There is no stenosis. | | | | | |Imaged abdomen and pelvis demonstrate no acute findings. | | | | | |IMPRESSION - | | |Multilevel degenerative changes along with congenitally short pedicles that | | |decrease the size of the central canal. Moderate central stenoses are at L3-4 | | |and L4-5 with stability at L3-4 and improvement at L4-5. Neural foraminal canal | | |stenoses are at these levels as described above. | | | | | |Dictated and Signed by: William Gerber MD | | | Electronically signed: 11/24/2017 10:48 AM | | | | | + + -----+ + + | Procedure Note | + + | Baron, Rad Results In - 11/24/2017 12:11 PM PDT MRI LUMBAR SPINE WO CONTRAST 11/24/2017 | | 9:56 AM HISTORY: Low back pain.COMPARISON: Multiple priors most recently | | 05/29/2015.PROTOCOL: Sagittal T2, sagittal T1, axial T2, axial T1, sagittal STIR, | | coronalT2.FINDINGS:Vertebral body height are preserved. Mild disc narrowing is at L4-5. | | Disc desiccation are at L3-4 and L4-5.Imaged spinal cord and cauda equina demonstrate | | normal signal with no evidencefor myelomalacia or mass lesions. The conus medullaris | | terminates at level L1,which is normal. There are congenitally short pedicles that | | decrease the size ofthe central canal.Sagittal images demonstrate mild central stenosis | | at L2-3 due to congenitallyshort pedicles.L3-4: A 3 mm posterior disc bulge is present | | with tearing of the annulus.Moderate facet hypertrophy and ligamentum hypertrophy are | | noted. A small amountof facet fluid are present. There is moderate central stenosis with | | AP dimensionof the canal measuring 8 mm. Mild to moderate bilateral neural foraminal | | canalstenoses are seen. Degenerative changes at this level remain stable compared | | to05/29/2015. L4-5: A 2 mm posterior disc bulge is present along with moderate | | facethypertrophy and ligamentum flavum hypertrophy. There is moderate centralstenosis | | transversely with the canal measuring 8 mm. Moderate bilateral neuralforaminal canal | | stenoses are seen. The amount of disc bulging has decreasedcompared to the prior study. | | L5-S1: A 1 mm posterior disc bulge is observed along with mild facethypertrophy. There | | is no stenosis.Imaged abdomen and pelvis demonstrate no acute findings.IMPRESSION | | -Multilevel degenerative changes along with congenitally short pedicles thatdecrease the | | size of the central canal. Moderate central stenoses are at L3-4and L4-5 with stability | | at L3-4 and improvement at L4-5. Neural foraminal canalstenoses are at these levels as | | described above.Dictated and Signed by: William Gerber MD Electronically signed: 11/24/2017 | | 10:48 AM | |of facet fluid are present. There is moderate central stenosis with AP dimension | |of the canal measuring 8 mm. Mild to moderate bilateral neural foraminal canal | |stenoses are seen. Degenerative changes at this level remain stable compared to | |05/29/2015. | | | |L4-5: A 2 mm posterior disc bulge is present along with moderate facet | |hypertrophy and ligamentum flavum hypertrophy. There is moderate central | |stenosis transversely with the canal measuring 8 mm. Moderate bilateral neural | |foraminal canal stenoses are seen. The amount of disc bulging has decreased | |compared to the prior study. | | | |L5-S1: A 1 mm posterior disc bulge is observed along with mild facet | |hypertrophy. There is no stenosis. | | | |Imaged abdomen and pelvis demonstrate no acute findings. | | | |IMPRESSION - | |Multilevel degenerative changes along with congenitally short pedicles that | |decrease the size of the central canal. Moderate central stenoses are at L3-4 | |and L4-5 with stability at L3-4 and improvement at L4-5. Neural foraminal canal | |stenoses are at these levels as described above. | | | |Dictated and Signed by: William Gerber MD | | Electronically signed: 11/24/2017 10:48 AM | + + + +---------+ + + | Performing | Address | City/State/Zipcode | Phone Number | | Organization | | | | + +---------+ + + | [facility] | | | | + +---------+ + + documented in this encounter Visit Diagnoses + + | Diagnosis | + + | Low back pain, unspecified back pain laterality, unspecified chronicity, with sciatica | | presence unspecified | + + documented in this encounter"
--- OUTSIDE RECORDS SUMMARY | ~2019-07-05 | XMS | Encounter Summary ---
Demographics + + + | Address | [address] | | | [place] [address] | + + + | Home Phone | | + + + | Preferred Language | Unknown | + + + | Marital Status | | + + + | Evangelical Affiliation | Unknown | + + + | Race | Unknown | + + + | Ethnic Group | Unknown | + + + Author + + + | Author | [facility] | | | and [place] | + + + | Organization | [facility] | | | [...] Team Providers + +------+ + | Care Stockroom Supervisor Name | Role | Phone | + +------+ + | Kanika Dominguez PA-C | PCP | | + +------+ + Encounter Details +--------+ + + + + | Date | Type | Department | Care Team | Description | +--------+ + + + + | 08/18/ | Episode | [facility] [place] | [place], | | | 2018 | Changes | ORTHOPEDIC SURGERY | Leti Sanders MA | | | | | [place] | | | | | | [place] | | | | | | [address] | | | | | | [phone] | | | +--------+ + + + [...]
--- OUTSIDE RECORDS SUMMARY | ~2019-07-05 | XMS | Encounter Summary ---
Demographics + + + | Address | [address] | | | [place] [address] | + + + | Home Phone | | + + + | Preferred Language | Unknown | + + + | Marital Status | | + + + | Faith Affiliation | Unknown | + + + | Race | Unknown | + + + | Ethnic Group | Unknown | + + + Author + + + | Author | [facility] | | | and [place] | + + + | Organization | [facility] | | | and [...] Team Providers + +------+ + | Care Electrocardiographic Technician Name | Role | Phone | + +------+ + | Kanika Dominguez PA-C | PCP | | + +------+ + Reason for Referral Evaluate & Treat (Routine) +--------+ + + + + + | Status | Reason | Specialty | Diagnoses / | Referred By | Referred To | | | | | Procedures | Contact | Contact | +--------+ + + + + + | Closed | Specialty | Sleep | Diagnoses | Olivia | [facility] | | | Services | Medicine | SARA | MD Basilia | Center [address] | | | Required | | (obstructive | [address] | [place] | | | | | sleep | [facility] [place] | [place], | | | | | apnea) | [place] | [place] [address] | | | | | Procedures | [id number] | Phone: | | | | | [facility] | Phone: | [phone] | | | | | STUDY, | [phone] | Fax: | | | | | UNATTENDED, | Fax: | [phone] | | | | | SIMUL RECORD | [phone] | | | | | | HR/O2 | | | | | | | SAT/RESP | | | | | | | FLOW/RESP | | | | | | | EFF HST | | | | | | | (03/01/18 @ | | | | | | | 9am) | | | +--------+ + + + + + Reason for Visit +---------+ + | Reason | Comments | +---------+ + | Consult | | +---------+ + Evaluate & Treat (Routine) +--------+--------+ + + + + | Status | Reason | Specialty | Diagnoses / | Referred By | Referred To | | | | | Procedures | Contact | Contact | +--------+--------+ + + + + | Closed | | Psychiatry & | Diagnoses | Alberto, | Olivia, | | | | Neurology - | Obstructive | Kanika Carballo, | MD Basilia | | | | Sleep | sleep apnea | [address] | [address] | | | | Medicine / | (adult) | [address] | [place] | | | | Sleep | (pediatric) | [place] | [place], [place] | | | | Medicine | CONS[address] | [address] | [address] Phone: | | | | | [address] | [facility], | [phone] | | | | | CPAP | OR | Fax: | | | | | Procedures | [address] | [phone] | | | | | NEW PATIENT | Phone: | | | | | | | [phone] | | | | | | | Fax: | | | | | | | [phone] | | +--------+--------+ + + + + Encounter Details +--------+---------+ + + + | Date | Type | Department | Care Team | Description | +--------+---------+ + + + | 02/17/ | Office | [facility] | Basilia Baker MD | SARA (obstructive | | 2018 | Visit | SLEEP DISORDER [address] | [address] | sleep apnea) | | | | [place] | [place] | (Primary Dx) | | | | [place] [address] | [address] | | | | | [phone] | | | +--------+---------+ + + + [...] + + + | Blood Pressure | 110/70 | 02/17/2018 8:01 AM | | | | | PDT | | + + + + + | Pulse | 87 | 02/17/2018 8:01 AM | | | | | PDT | | + + + + + | Temperature | - | - | | + + + + + | Respiratory Rate | 16 | 02/17/2018 8:01 AM | | | | | PDT | | + + + + + | Oxygen Saturation | 97% | 02/17/2018 8:01 AM | | | | | PDT | | + + + + + | Inhaled Oxygen | - | - | | | Concentration | | | | + + + + + | Weight | 105.7 kg (233 lb 0.4 | 02/17/2018 8:01 AM | | | | oz) | PDT | | + + + + + | Height | 180.3 cm (5' 11") | 02/17/2018 8:01 AM | | | | | PDT | | + + + + + | Body Mass Index | 32.5 | 02/17/2018 8:01 AM | | | | | PDT | | + + + + + documented in this encounter Patient Instructions Patient Instructions Basilia Baker MD - 02/17/2018 8:49 AM PDTFormatting of this note cristian ht be different from the original. Please: 1- Schedule your sleep study. An appointment will be made a few days after the sleep study so that we can discuss the results of the sleep study with you to determine how to best help you with your sleep issues. If you can't come to the sleep center on the night of your scheduled sleep study, please no teresay us ( ). 2- Review the following sleep hygiene tips: - Awaken at nearly the same time ever day (less than 2 hours difference between work/school days and off/weekend days). Don't sleep in. - Obtain as much bright light as possible during your desired waking hours. - Minimize caffeine (coffee, tea, energy drinks, soft drinks, etc.) and limit to the hours immediately after awakening. - Eliminate or minimize smoking and alcohol consumption, especially near bedtime. - Minimize or eliminate napping (unless you are a good sleeper at night and you are really sleepy during the day). - Darken your environment an hour or two before bedtime. - Consider "unwinding" and "closing" your day about an hour before your anticipated bedtime . - Go to bed only when you are sleepy and no earlier than 9 hours before your anticipated wa ke time. - Good sleepers enjoy sleeping and know that not everyone sleeps well every night. The occa sional night of poor sleep happens to everyone and isn't something to worry about. It was very nice meeting you today and thank you for letting me take care of you. What Are Snoring and Obstructive Sleep Apnea? If you ve ever had a stuffed-up nose, you know the feeling of trying to breathe through a very narrow passageway. This is what happens in your throat when you snore. While you sleep , structures in your throat partly block your air passage. This makes the passage narrow and hard to breathe through. In some cases the entire passage may become blocked so you can t breathe at all. Then you haveobstructivesleep apnea. Snoring Obstructive sleep apnea Snoring If your throat structures are too large or the muscles relax too much during sleep, the air passage may be partly blocked for a while (temporarily). But over time the air gets past. A s air from the nose or mouth passes around this blockage, the throat structures vibrate. Thi s causes the familiar sound of snoring. This sound can be loud. Snorers may wake up others, or even themselves, during the night. Snoring gets worse as more and more of the air passage is blocked. Obstructive sleep apnea If the structurespartly orcompletely block the throat, air can t flow to the lungs at all. This is calledhypopnea (decreased breathing) orapnea (meaning no breathing ). The lungs aren t getting fresh air. So the brain tells the body to wake up just enough to tighten the muscles and unblock the air passage. With a loud gasp, breathing begins again. This process may be repeated over and over again during the night. This can make your sleep fragmentedwithlighter stagesof sleep. You won t remember waking up many times during the night. But due tolighter sleepyou will feel tired the next day. The lack of sleep a nd fresh air can also strain your lungs, heart, and other organs. This leads to problems suc h as high blood pressure, heart attack, or stroke. Problems in the nose and jaw Problems in the structure of the nose may block breathing. A crooked (deviated) septum or s wollen turbinates can make snoring worse or lead to apnea. Also, a receding jaw may make the tongue sit too far back. Then it s more likely to block the airway when you re asleep. Date Last Reviewed: 01/20/201719990518-1030 [employer]. [address] [place] [address]. All righ ts reserved. This information is not intended as a substitute for professional medical care. Always follow your healthcare professional's instructions. Continuous Positive Air Pressure (CPAP) A mask over the nose gently directs air into the throat to keep the airway open. Continuous positive air pressure (CPAP)uses gentle air pressure to hold the airway open. CPAP is often the most effective treatment for sleep apnea and severe snoring. It works very well for many people. But keep in mind that it can take several adjustments before the setu p is right for you. How CPAP works The CPAP machine is asmall portable pump that sits beside the bed. The pumpsends air through a hose, which is held over your nose alone, or nose and mouthby a mask.Mild air pressureis gently pushed through your airway. The air pressure nudges sagging tissues asid e. This widens the airway so you can breathe better. CPAP may be combined with other kinds o f therapy for sleep apnea. Types of air pressure treatments There are different types of CPAP. Your doctor or CPAP forklift technician will help you decide whic h type is best for you: Basic CPAPkeeps the pressure constant all night long. A bilevel device(BiPAP)providesmore pressure when you breathe in and less when you breathe out.A BiPAP machine also may be set to provide automatic breaths to maintain analia thing if you stop breathing while sleeping. An autoCPAP deviceautomatically adjusts pressure throughout the night and in response to changes such as body position, sleep stage, and snoring. Date Last Reviewed: 01/20/201719992942-9768 [employer]. [address] [place] [address]. All righ ts reserved. This information is not intended as a substitute for professional medical care. Always follow your healthcare professional's instructions. documented in this encounter Progress Notes Basilia Baker MD - 02/17/2018 8:00 AM PDT ID/CC: We are asked to Amelia Rodriguez referred for consultation from Kanika Dominguez for evaluation of obstructive sleep apnea. Gianfranco Rodriguez is a 52 y.o. year male old with history of hypertension, chronic low juliette k pain status post lumbar surgery in December 2017, status post shoulder surgery, hypogonadism, and obesity presenting for evaluation of obstructive sleep apnea. Mr. Rodriguez states that when he was hospitalized for his shoulder surgery a few months ago, devin hewitt was told that he had a sleep apnea. He has snored for several years his also noticed that he stops breathing during sleep. His snoring is worse on his back and he usually slee ps on his side. He sleeps on a flat bed and one pillow. He denies awakening with gasping or choking, heartburn interfering with sleep, morning head aches, but has has morning dry mouth and some sleepiness and fatigue. 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 Wakes up a couple of times for urination. He sometimes wakes up between 3 and 5 AM for no reason and has difficulty going back to sle ep. This happens couple of times per week. He goes to bed between 11 PM and midnight. He watches something on his laptop in the bed. Once he puts it aside he falls asleep quickly. If he wakes up at night if he has difficult y going back to sleep is stays in bed tossing and turning. He gets up between 5 and 6 AM sp ontaneously. He doesn't feel refreshed but he is used to how he feels. He is taking himself off oxycodone-acetaminophen, 10-325 mg, which was started after his re cent back surgery. ? Kadoka Sleepiness Scale: 8 out of 24 ( score >11 clinnically significant for sleepiness) . ? Patient denies: drowsy driving. ? - Insomnia Severity Index Score: 14 out of 28, suggesting subthreshold insomnia. 0-7 no clinically significant. 8-14 subthreshold insomnia 15-21 moderate insomnia 22-28 severe insomnia ADDITIONAL DATA: ? Cook Depression Inventory: 8, consistent with minimal depression. No suicidal ideation. ? Cook Anxiety Inventory:4 ? SF-36v2: minimal to mild decline in all subscales but MH, RE. PAST MEDICAL HISTORY Past Medical History: Diagnosis Date Benign essential hypertension BPH (benign prostatic hyperplasia) Chronic low back pain 07/25/2015 DDD (degenerative disc disease), lumbar 07/25/2015 ED (erectile dysfunction) Erectile dysfunction Facet arthritis of lumbar region (HCC) 07/25/2015 History of tobacco use Left hip pain Left lumbar radiculopathy 10/30/2015 Lumbosacral radiculopathy Male hypogonadism Right knee sprain 12/05/1992 Spinal stenosis of lumbar region Spinal stenosis of lumbar region 07/25/2015 Spondylosis 03/20/2011 PAST SURGICAL HISTORY Past Surgical History: Procedure Laterality Date FACET NEUROTOMY [place] [facility]GERY toe fracture INJECTION FORAMEN EPIDURAL L/S INJECTION LUMBAR/SACRAL KNEE ARTHROSCOPY Left 1995 SHOULDER ARTHROSCOPY Left 09/02/2017 Procedure: Left Shoulder Open Rotator Cuff Repair, Acromioplasty, and Distal Clavicle Exci lamine w/ Biceps Tendodesis; Surgeon: Ramón Lobato MD; Location: [facility] OR ALLERGIES No Known Allergies CURRENT MEDICATIONS Prior to Admission medications Medication Sig Start Date End Date Taking? Authorizing Provider cholecalciferol (VITAMIN D-3) 5000 units TABS Take 5,000 Units by mouth Daily. Yes Histor ical Provider, lisinopril (PRINIVIL,ZESTRIL) 40 MG tablet 10/14/17 Yes Historical Provider, NARCAN 4 MG/0.1ML instill 1 spray IN 1 NOSTRIL may repeat EVERY 2 TO 3 MINUTES UNTIL EMERGE NCY ARRIVES 08/07/16 Yes Historical Provider, oxyCODONE-acetaminophen (PERCOCET) 10-325 mg per tablet Take 1 tablet by mouth every 6 hour s as needed. 12/03/16 Yes Historical Provider, tadalafil (CIALIS) 5 MG tablet Take 5 mg by mouth as needed for Erectile Dysfunction. Yes Historical Provider, testosterone (ANDROGEL) 25 mg/2.5 g (1%) gel Apply 25 mg of testosterone topically Daily. Yes Historical Provider, SOCIAL HISTORY - Lives with his . - Occupation: Shift work: no - ETOH: no - Smoking: never - Other substances: no - Caffeine use: 2 cups of coffee in the morning - Exercise: walks one mile per day. - Eating habits: has been trying to eat healthier. Has been juicing. Minimal fast foods and processed foods. FAMILY HISTORY No family history of sleep apnea. REVIEW OF SYSTEMS Constitutional:+ some fatigue ENT: No nasal or sinus congestion. Card: No exertional substernal chest heaviness, Resp: No cough, No wheezing GI: No nausea, vomiting, abdominal pain, diarrhea, or constipation, acid reflux : + nocturia MS:+ some back pain after surgery. Getting better Neuro: No headaches Psych: No depression, No overt anxiety Heme: No easy bruising or prolonged bleeding. PHYSICAL EXAMINATION BP 110/70 | Pulse 87 | Resp 16 | Ht 1.803 m (5' 11") | Wt 105.7 kg (233 lb 0.4 oz) | S pO2 97% | BMI 32.50 kg/m , Neck Measurement: 18 in GEN: Well developed well nourished, pleasant, NAD HEENT: Sclerae anicteric. No ptosis.Oropharyngeal exam reveals Modified Mallampati grade3 airway with 1+ tonsils. Tongue does not have scalloping. Thereis not retrognathia. Patient d oes have a high arched palate. CV: RRR, no m/r/g RESP: CTAB, no w/r/r EXT: No clubbing/cyanosis. NEURO: A&Ox3, speech fluent. face symmetric, uvula/tongue midline. . Normal casual gait. PSYCH: Appropriate affect. ASSESSMENT AND PLAN SARA: This patient has several symptoms and some risk factors for obstructive sleep apnea. I discussed them, and the pathophysiology of sleep apnea today, associated risks including h eart attack and stroke with untreated severe sleep apnea, and association between obstructiv e sleep apnea and hypertension, insulin resistance and diabetes, GERD, headaches, and mood a nd memory problems. discussed diagnosis via polysomnography / [id number] sleep testing. Today, I ordered a home sleep study, but informed him that if it was inconclusive, we will have to confirm it with diagnostic polysomnography. I also discussed treatment options for s leep apnea, including CPAP (gold standard), weight loss, mandibular advancement device, and surgery. An appointment will be made a few days after the sleep study so that we can discuss the results of the sleep study with patient. EDS: I also discussed the dangers of excessive daytime sleepiness in the context of driving or other dangerous activities. I counseled the patient to avoid all such activities when fe eling tired or sleepy. He indicated his understanding of this important recommendation. He does not meet full criteria for chronic insomnia but has some difficulty falling back as leep for couple of times per week.: I discussed optimizing sleep hygiene. I also discussed stimulus control therapy. Discussed that one cannot force him to fall asleep, and once the condition is right , sleep comes over us naturally. I instructed him that if he was not ab le to fall back asleep within 15-20 minutes ( w/o looking at the clock which can perpetuate insomnia) get out of bed and bedroom, sit in dark, listen to a soothing music if it helps, o r read a boring paper book, until he is sleepy again, and to go back to bed. Chronic sleep deprivation: Doesn't get enough sleep and this has been going on for several years. I discussed the negative impact of chronic sleep deprivation on health including on cardiovascular system, immune system, mood, memory, blood sugar and insulin, and weight. Encouraged maintaining regular physical activity and healthy eating habits. Thank you for the opportunity to participate in this patient's care. Portions of this chart may have been created with [employer] voice recognition software. Occasi onal wrong-word or sound-alike substitutions may have occurred due to the inherent gilliland itations of voice recognition software. Please read the chart carefully and recognize, using context, where these substitutions have occurred. Carol Weinstein, Medical As lisat - 02/17/2018 8:00 AM PDTFormatting of this note might be different from the origina l. 02/17/18 0800 Cook Depression Inventory-II Depression Score 8 - Minimal depression Insomnia Severity Index Insomnia Severity Index 14 Kadoka Sleepiness Scale Sitting and reading 1 Watching TV 2 Sitting, inactive in a public place (e.g. a theatre or a meeting) 0 As a passenger in a car for an hour without a break 1 Lying down to rest in the afternoon when circumstances permit 3 Sitting and talking to someone 0 Sitting quietly after a lunch without alcohol 1 In a car, while stopped for a few minutes in traffic 0 Total score 8 SF-36v2 Score PF 40.32 RP 36.95 BP 26.52 GH 41.3 VT 46.66 SF 42.3 RE 56.17 MH 48.25 PCS 30.84 MCS 55.23 documented in this enco unter Plan of Treatment + + +--------+ + + | Name | Type | Priori | Associated Diagnoses | Order Schedule | | | | ty | | | + + +--------+ + + | * [facility] - | Outpatient | Routin | SARA (obstructive | Ordered: 02/17/2018 | | AMB Referral | Referral | e | sleep apnea) | | + + +--------+ + + documented as of this encounter Visit Diagnoses + + | Diagnosis | + + | SARA (obstructive sleep apnea) - Primary Obstructive sleep apnea (adult) (pediatric) | + + documented in this encounter
--- OUTSIDE RECORDS SUMMARY | ~2019-07-05 | XMS | Encounter Summary ---
Demographics + + + | Address | [address] | | | [place] [address] | + + + | Home Phone | | + + + | Preferred Language | Unknown | + + + | Marital Status | | + + + | Presybeterian Affiliation | Unknown | + + + | Race | Unknown | + + + | Ethnic Group | Unknown | + + + Author + + + | Author | [facility] | | | and [place] | + + + | Organization | [facility] | | [...] Team Providers + +------+ + | Care Remodeler Name | Role | Phone | + +------+ + | Kanika Dominguez PA-C | PCP | | + +------+ + Reason for Visit +--------+ + | Reason | Comments | +--------+ + | Other | | +--------+ + Encounter Details +--------+ + + + + | Date | Type | Department | Care Team | Description | +--------+ + + + + | 10/06/ | Telephone | [facility] | Uday Quezada, | Other | | 2017 | | NEUROSURGERY [address] | DO [address] | | | | | [address] | [address] [place] | | | | | [place] | [address] | | | | | [address] | | | | | | [phone] | | | +--------+ + + + [...]
--- OUTSIDE RECORDS SUMMARY | ~2019-07-05 | XMS | Encounter Summary ---
Demographics + + + | Address | [address] | | | [place] [address] | + + + | Home Phone | | + + + | Preferred Language | Unknown | + + + | Marital Status | | + + + | Cheondoism Affiliation | Unknown | + + + | Race | Unknown | + + + | Ethnic Group | Unknown | + + + Author + + + | Author | [facility] | | | and [place] | + + + | Organization | [facility] | | | [...] Team Providers + +------+ + | Care Crm Technical Lead Name | Role | Phone | + +------+ + | Kanika Dominguez PA-C | PCP | | + +------+ + Reason for Visit + + + | Reason | Comments | + + + | Lab Results | Nicotine Test | + + + Encounter Details +--------+ + + + + | Date | Type | Department | Care Team | Description | +--------+ + + + + | 06/10/ | Telephone | [facility] | Ramón Lobato, | Lab Results | | 2017 | | ORTHOPEDIC SURGERY | MD [address] [facility] | (Nicotine Test) | | | | [address] [facility] | [place] | | | | | [place] | [address] | | | | | [address] | | | | | | [phone] | | | +--------+ + + + [...]
--- OUTSIDE RECORDS SUMMARY | ~2019-07-05 | XMS | Encounter Summary ---
Demographics + + + | Address | [address] | | | [place] [address] | + + + | Home Phone | | + + + | Preferred Language | Unknown | + + + | Marital Status | | + + + | Yazidi Affiliation | Unknown | + + + | Race | Unknown | + + + | Ethnic Group | Unknown | + + + Author + + + | Author | [facility] | | | and [place] | + + + | Organization | [facility] | | | and [...] Team Providers + +------+ + | Care Clinical Applications Manager Name | Role | Phone | + +------+ + | Kanika Dominguez PA-C | PCP | | + +------+ + Reason for Visit Auth/Cert +--------+--------+ + + + + | Status | Reason | Specialty | Diagnoses / | Referred By | Referred To | | | | | Procedures | Contact | Contact | +--------+--------+ + + + + | | | | Diagnoses | | | | | | | Biceps | | | | | | | tendonitis | | | | | | | on left | | | | | | | (M75.22), | | | | | | | Tear of left | | | | | | | rotator | | | | | | | cuff, | | | | | | | unspecified | | | | | | | tear extent | | | | | | | (M75.102), | | | | | | | 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 | | | | | | | acromioclavi | | | | | | | cular joint | | | | | | | (M19.012) | | | | | | | Procedures | | | | | | | IA SHLDR | | | | | | | ARTHROSCOP,E | | | | | | | XTEN DEBRIDE | | | | | | | IA REPAIR | | | | | | | ROTATOR | | | | | | | CUFF,CHRONIC | | | | | | | IA PARTIAL | | | | | | | REMOVAL, | | | | | | | CLAVICLE IA | | | | | | | PARTIAL | | | | | | | REMOVAL/REPA | | | | | | | IR,ACROMION | | | | | | | IA REPAIR | | | | | | | BICEPS LONG | | | | | | | TENDON Left | | | | | | | Shoulder | | | | | | | Arthroscopy, | | | | | | | Open | | | | | | | Rotator Cuff | | | | | | | Repair, | | | | | | | Acromioplast | | | | | | | y, and | | | | | | | Distal | | | | | | | Clavicle | | | | | | | Excision w/ | | | | | | | Possible | | | | | | | Biceps | | | | | | | Tendodesis | | | +--------+--------+ + + + + Encounter Details +--------+---------+ + + + | Date | Type | Department | Care Team | Description | +--------+---------+ + + + | 09/02/ | [facility] | [facility] | Ramón Lobato, | Left Shoulder Open | | 2018 | | [facility] | MD Fine [facility] | Rotator Cuff Repair, | | | | [address] | [place] | Acromioplasty, and | | | | [place] | [address] | Distal Clavicle | | | | [phone] | | Excision w/ Biceps | | | | [phone] | | Tendodesis | +--------+---------+ + + + Social History [...] + + + | Blood Pressure | 113/56 | 09/02/2017 4:15 PM | | | | | PDT | | + + + + + | Pulse | 116 | 09/02/2017 4:15 PM | | | | | PDT | | + + + + + | Temperature | 36.2 C (97.2 F) | 09/02/2017 2:55 PM | | | | | PDT | | + + + + + | Respiratory Rate | 18 | 09/02/2017 4:15 PM | | | | | PDT | | + + + + + | Oxygen Saturation | 92% | 09/02/2017 4:15 PM | | | | | PDT | | + + + + + | Inhaled Oxygen | - | - | | | Concentration | | | | + + + + + | Weight | 110.1 kg (242 lb | 09/02/2017 10:49 AM | | | | 11.6 oz) | PDT | | + + + + + | Height | 180.3 cm (5' 11") | 09/02/2017 10:49 AM | | | | | PDT | | + + + + + | Body Mass Index | 33.85 | 09/02/2017 10:49 AM | | | | | PDT | | + + + + + documented in this encounter Discharge Instructions Instructions Mary Guardado RN - 09/02/2017 Discharge Instructions for Open Rotator Cuff Repair You had a procedure called open rotator cuff repair.The rotator cuff consists of the musc les and tendons that surround your shoulder. The rotator cuff keeps the top of your upper ar m bone (humerus) securely in the shoulder joint. Your doctor made an incision near your shou lder blade and repaired the torn muscles or tendons in your shoulder. Here are instructions to follow when caring for your arm at home. Activity You may be told to do daily pendulum swings to improve your joint s flexibility. Us e your torso to move your arm in a seneca as it hangs straight down, make circles with your hand first in one direction, then the other. After surgery, rest your arm and relax for the rest of day. If you had general anesthesia (were put to sleep for the procedure), don t operate pow er tools or machinery, drink alcohol, or make any major decisions for at [id number] af ter surgery. Wear your sling, brace, or immobilizer, as directed. Don t drive a car until your doctor says it s OK. And never drive while taking opioi d pain medicine. Flex your wrist and wiggle your fingers often to help blood flow. Your doctor may recommend pendulum exercises after your surgery. If this recommendation is made: Hold on to the back of a chair, or lean on a tabletop with your healthy hand. Let your arm hang straight down toward the floor and use your torso to move your affecte d arm in a seneca. First [id number] in one direction. Then [id number] in the other direction. Repeat the pendulum exercise dyfls2fnxc(s)while you are awake. When you feel ready , increase the number of circles to 50 in each direction cdwvq0vdoq(s). Incision care Check your incision daily for redness, tenderness, or drainage. Don t soak in a bathtub, hot tub, or pool until your doctor says it s OK. Wait several days after your surgery to start showering, or until your doctor says it's OK. Then shower as needed. Carefully wash your incision with soap and water. Gently pat it d ry. Don t rub the incision, or apply creams or lotions. Your incision was closed using sutures, raymon, or strips of tape. If you have sutures or raymon, they may need to be removed up to2 to 3weeks after surgery. Allow the strips of tape to fall off on their own. Home care Use pain medicine as directed by your doctor. Applyan ice pack or bag of frozen peas or something similar wrapped in a thin towe luis eduardo your shoulder to reduce swelling for the [id number]. Leave the ice pack on for 20minutes; then take it off [id number]. Repeat as needed. Take your temperature daily [id number] your surgery. Report a fever yynwf591. 4F(38C) to your doctor. Fever may be a sign of infection. Follow-up care Follow up with your healthcare provider, or as advised. Call 911 Call 911 right awayif you have any of the following: Chest pain Shortness of breath When to call your healthcare provider Call your healthcare provider right away if you have any of these: Increasing shoulder pain or pain not relieved by medicine Pain or swelling in the arm on the side of your surgery Numbness, tingling, coolness, or blue-benson color of your arm or fingers on the side of y our surgery Fever of100.4F(38C) or higher, or as directed by your healthcare provider Shaking chills Drainage or oozing, redness, or warmth at the incision Nausea or vomiting Date Last Reviewed: 12/21/201519993440-4056 [employer]. [address] [place] [address]. All righ ts reserved. This information is not intended as a substitute for professional medical care. Always follow your healthcare professional's instructions. Use cold packs to left shoulder Keep the bandages intact and dry Ok to take the sling off to get comfortable with pillows to prop the arm anyway you need Use the sling when walking around to support the weight of the arm documented in this encounter Medications at Time of Discharge + + + +---------+ + + | Medication | Sig | Dispensed | Refills | Start | End Date | | | | | | Date | | + + + +---------+ + + | NARCAN 4 MG/0.1ML | instill 1 spray IN 1 | | 0 | 08/07/19 | | | | NOSTRIL may repeat [...] + + + +---------+ + + | oxyCODONE | Take 1-2 tablets by | 75 | 0 | 09/03/19 | | | (ROXICODONE) 5 mg | mouth every 6 hours | tablet | | 18 | 8 | | tablet | as needed for Pain. | | [...] | + +--------+ + + + | ARTHROSCOPY SHOULDER | | 09/02/2017 | Biceps tendonitis | | | OPEN | | 1:01 PM | on left (M75.22), | | | | | PDT | Tear of left rotator | | | | | | cuff, unspecified | | | | | | tear extent | | | | | | (M75.102), Arthrosis | | | | | | of left | | | | | | acromioclavicular | | | | | | joint (M19.012) | | + +--------+ + + + documented in this encounter Visit Diagnoses Not on filedocumented in this encounter Administered Medications + +--------+ +--------+------+------+ | Medication Order | MAR | Action | Dose | Rate | Site | | | Action | Date | | | | + +--------+ +--------+------+------+ | acetaminophen (TYLENOL) tablet | Given | 09/03/19 | 975 mg | | | | 975 mg 975 mg (rounded from | | 18 11:39 | | | | | 1,000 mg), Oral, ONCE, Wed | | AM PDT | | | | | 09/02/17 at 1130, For 1 dose, | | | | | | | Pre-op | | | | | | + +--------+ +--------+------+------+ + +---+ | | | + +---+ | albuterol 2.5 mg/3 mL nebulizer | | | solution 2.5 mg 2.5 mg, | | | Nebulization, ONCE PRN, Wheezing, | | | Starting 09/02/17 at 1106, | | | For 1 dose, RT will administer., | | | Pre-op | | + +---+ | | | + +---+ + +-------+ +--------+---+---+ | albuterol 2.5 mg/3 mL nebulizer | Given | 09/03/19 | 2.5 mg | | | | solution 2.5 mg 2.5 mg, | | 18 2:55 | | | | | Nebulization, ONCE PRN, Wheezing, | | PM PDT | | | | | Starting Thu09/02/17 at 1424, | | | | | | | For 1 dose, Notify anesthesia if | | | | | | | patient is wheezing and does not | | | | | | | have a history of asthma or COPD | | | | | | | or current smoking., | | | | | | | Recovery/Phase I | | | | | | + +-------+ +--------+---+---+ + +---+ | | | + +---+ | albuterol-ipratropium (DUONEB) | | | 2.5-0.5 mg/3 mL nebulizer | | | solution 3 mL 3 mL, | | | Nebulization, ONCE PRN, Wheezing, | | | Starting Thu09/02/17 at 1106, | | | For 1 dose, Pre-op | | + +---+ | | | + +---+ | albuterol-ipratropium (DUONEB) | | | 2.5-0.5 mg/3 mL nebulizer | | | solution 3 mL 3 mL, | | | Nebulization, ONCE PRN, Wheezing, | | | Shortness of Breath, Starting | | | Thu09/02/17 at 1424, For 1 dose, | | | Recovery/Phase I | | + +---+ | | | + +---+ | dextrose 50% injection 12.5-25 | | | g 12.5-25 g, Intravenous, EVERY | | | 15 MIN PRN, Low Blood Sugar, Give | | | 12.5g (25 mL) IV if blood | | | glucose 50-69 mg/dL. Give 25g | | | (50 mL) IV if blood glucose < 50, | | | Starting 09/02/17 at 1106, | | | Repeat in 15 min if blood glucose | | | remains < 70 mg/dL. Repeat | | | blood glucose in 30 min once | | | blood glucose > 70., Pre-op | | + +---+ | | | + +---+ | dextrose 50% injection 12.5-25 | | | g 12.5-25 g, Intravenous, EVERY | | | 15 MIN PRN, Low Blood Sugar, For | | | hypoglycemia. Give 12.5g (25ml) | | | IV if blood glucose 50-69 | | | mg/dL. Give 25g (50ml) IV if | | | blood glucose < 50, Starting Wed | | | 09/02/17 at 1424, Give over 2 min. | | | Repeat in 15 min if blood | | | glucose remains < 70 mg/dL. | | | Repeat blood glucose in 30 min | | | once blood glucose > 70., | | | Recovery/Phase I | | + +---+ | | | + +---+ | ePHEDrine 50 mg/mL injection 5 | | | mg 5 mg, Intravenous, EVERY 5 | | | MIN PRN, if SBP <90., Starting | | | 09/02/17 at 1424, Hold if HR > | | | 100. Maximum total dose 20mg., | | | Recovery/Phase I | | + +---+ | | | + +---+ | fentaNYL (PF) injection 25-50 | | | mcg 25-50 mcg, Intravenous, | | | EVERY 5 MIN PRN, Pain, Starting | | | 09/02/17 at 1424, Maximum | | | total dose 250 mcg. PACU IV | | | Narcotic Priority: Only use | | | fentanyl for immediate post-op | | | pain (one dose) or breakthrough | | | pain when any other IV narcotics | | | ordered have been ineffective (if | | | ordered). If both morphine and | | | hydromorphone are ordered, use | | | morphine first, and use | | | hydromorphone if morphine | | | ineffective., Recovery/Phase I | | + +---+ | | | + +---+ + +-------+ +--------+---+---+ | gabapentin (NEURONTIN) capsule | Given | 09/03/19 | 600 mg | | | | 600 mg 600 mg, Oral, ONCE, Thu | | 18 11:39 | | | | | 09/02/17 at 1130, For 1 dose, | | AM PDT | | | | | Pre-op | | | | | | + +-------+ +--------+---+---+ + +---+ | | | + +---+ | hydrALAZINE (APRESOLINE) | | | injection 5 mg 5 mg, | | | Intravenous, EVERY 20 MINUTES | | | PRN, For SBP > 180, DBP > 100, | | | Starting Thu09/02/17 at 1424, | | | Hold if HR > 100. Maximum total | | | dose 40 mg. Use labetalol first | | | if available., Recovery/Phase I | | + +---+ | | | + +---+ | HYDROmorphone (DILAUDID) | | | injection 0.2-0.5 mg 0.2-0.5 mg, | | | Intravenous, EVERY 5 MIN PRN, | | | Pain, Starting Thu09/02/17 at | | | 1424, Maximum total dose 4 mg. | | | PACU IV Narcotic Priority: Only | | | use fentanyl for immediate | | | post-op pain (one dose) or | | | breakthrough pain when any other | | | IV narcotics ordered have been | | | ineffective (if ordered). If | | | both morphine and hydromorphone | | | are ordered, use morphine first, | | | and use hydromorphone if morphine | | | ineffective., Recovery/Phase I | | + +---+ | | | + +---+ | labetalol (TRANDATE) 5 mg/mL | | | injection 5 mg 5 mg, | | | Intravenous, EVERY 5 MIN PRN, For | | | SBP > 180, DBP > 100, Starting | | | Thu09/02/17 at 1424, Hold if HR < | | | 60. Maximum total dose 300mg. | | | Notify anesthesia if patient | | | requires more than 50mg., | | | Recovery/Phase I | | + +---+ | | | + +---+ + +---------+ +---+---+---+ | lactated ringers (LR) infusion | New Bag | 09/03/19 | | | | | at 10-100 mL/hr, Intravenous, | | 18 1:35 | | | | | CONTINUOUS, Starting Wed 18 | | PM PDT | | | | | at 1130, TKO., Pre-op | | | | | | + +---------+ +---+---+---+ +---------+ +--------+-------+---+ | New Bag | 09/03/19 | | | | | | 18 11:41 | | | | | | AM PDT | | | | +---------+ +--------+-------+---+ | New Bag | 09/03/19 | 1,000 | 100 | | | | 18 11:40 | mLs | mL/hr | | | | AM PDT | | | | +---------+ +--------+-------+---+ + +---+ | | | + +---+ | ondansetron (ZOFRAN) injection | | | 4 mg 4 mg, Intravenous, ONCE | | | PRN, Nausea, Starting Thu09/02/17 | | | at 1424, For 1 dose, | | | Recovery/Phase I | | + +---+ | | | + +---+ | promethazine (PHENERGAN) (IV | | | ONLY) injection 6.25 mg 6.25 mg, | | | Intravenous, EVERY 15 MIN PRN, | | | Nausea, Vomiting, Starting Wed | | | 09/02/17 at 1424, For 4 doses, | | | TAKE PRECAUTIONS WHEN | | | ADMINISTERING Dilute to 10-20mL | | | with NS. Give over 2-3 minutes | | | into large vein. Use ondansetron | | | first if both are ordered., | | | Recovery/Phase I | | + +---+ | | | + +---+ documented in this encounter
--- OUTSIDE RECORDS SUMMARY | ~2019-07-05 | XMS | Encounter Summary ---
Demographics + + + | Address | [address] | | | [place] [address] | + + + | Home Phone | | + + + | Preferred Language | Unknown | + + + | Marital Status | | + + + | Shinto Affiliation | Unknown | + + + | Race | Unknown | + + + | Ethnic Group | Unknown | + + + Author + + + | Author | [facility] | | | and [place] | + + + | Organization | [facility] | | | [...] Team Providers + +------+ + | Care Consulting Software Engineer Name | Role | Phone | + +------+ + | Kanika Dominguez PA-C | PCP | | + +------+ + Encounter Details +--------+ + + + + | Date | Type | Department | Care Team | Description | +--------+ + + + + | 01/28/ | Hospital | [facility] | Conversion | Pain | | 2016 | Encounter | CONVERSION DEP [address] | Transaction, | | | | | [place] | Provider Unknown | | | | | [place] | | | | | | [phone] | (Fax) | | | | | [phone] | | | +--------+ + + + [...] | + +--------+ + + + | FL EPIDURAL STEROID | Routin | 10/30/2015 | | Results for this | | INJ LUMBAR SACRAL | e | 1:04 AM | | procedure are in the | | INTERLAMINAR | | PDT | | results section. | + +--------+ + + + documented in this encounter Results FL KAREN Lumbar Sacral Interlaminar (10/30/2015 1:04 AM PDT) + + | Specimen | + + | | + + + + + | Narrative | Performed At | + + + | This is a non-reportable procedure without a radiologist report and | | | is used for image storage only | | + + + + + | Procedure Note | + + | Wilian Draper Conversion - 02/03/2019 7:39 PM PDT This is a non-reportable procedure | | without a radiologist report and isused for image storage only | + + documented in this encounter Visit Diagnoses + + | Diagnosis | + + | Pain Generalized pain | + + documented in this encounter"
--- OUTSIDE RECORDS SUMMARY | ~2019-07-05 | XMS | Encounter Summary ---
Demographics + + + | Address | [address] | | | [place] [address] | + + + | Home Phone | | + + + | Preferred Language | Unknown | + + + | Marital Status | | + + + | Scientologist Affiliation | Unknown | + + + | Race | Unknown | + + + | Ethnic Group | Unknown | + + + Author + + + | Author | [facility] | | | and [place] | + + + | Organization | [facility] | | | and [...] Team Providers + +------+ + | Care Explosive Expert Name | Role | Phone | + +------+ + | Kanika Dominguez PA-C | PCP | | + +------+ + Reason for Visit + + + | Reason | Comments | + + + | Surgery Appointment | | + + + Encounter Details +--------+ + + + + | Date | Type | Department | Care Team | Description | +--------+ + + + + | 04/24/ | Telephone | [facility] [place] | Ramón Lobato, | Surgery Appointment | | 2017 | | ORTHOPEDIC SURGERY | MD [address] [facility] | | | | | [address] [facility] | [place] | | | | | [place] | [address] | | | | | [address] | | | | | | [phone] | | | +--------+ + + + [...] + | Diagnosis | + + | Biceps tendonitis on left - Primary Bicipital tenosynovitis | + + | Tear of left rotator cuff, unspecified tear extent | + + | Arthrosis of left acromioclavicular joint | + + documented in this encounter"
--- OUTSIDE RECORDS SUMMARY | ~2019-07-05 | XMS | Encounter Summary ---
Demographics + + + | Address | [address] | | | [place] [address] | + + + | Home Phone | | + + + | Preferred Language | Unknown | + + + | Marital Status | | + + + | Hoahaoism Affiliation | Unknown | + + + | Race | Unknown | + + + | Ethnic Group | Unknown | + + + Author + + + | Author | [facility] | | | and [place] | + + + | Organization | [facility] | | | [...] Team Providers + +------+ + | Care Pinball Machine Repairer Name | Role | Phone | + +------+ + | Kanika Dominguez PA-C | PCP | | + +------+ + Reason for Visit + + + | Reason | Comments | + + + | Cancel Surgery | | + + + Encounter Details +--------+ + + + + | Date | Type | Department | Care Team | Description | +--------+ + + + + | 07/15/ | Telephone | [facility] [place] | Damien Uday Umanzor, | Cancel Surgery | | 2016 | | NEUROSURGERY [address] | DO [address] | | | | | [address] | [address] [place], [place] | | | | | [place] | [address] | | | | | [address] | | | | | | [phone] | | | +--------+ + + + [...]
--- OUTSIDE RECORDS SUMMARY | ~2019-07-05 | XMS | Encounter Summary ---
Demographics + + + | Address | [address] | | | [place] [address] | + + + | Home Phone | | + + + | Preferred Language | Unknown | + + + | Marital Status | | + + + | Taoist Affiliation | Unknown | + + + | Race | Unknown | + + + | Ethnic Group | Unknown | + + + Author + + + | Author | [facility] | | | and [place] | + + + | Organization | [facility] | | | [...] Providers + +------+ + | Care General Farmworker Name | Role | Phone | + [...] + + | Closed | Specialty | Physical | Diagnoses | Inocente, | Tamy, | | | Services | Medicine and | | Surya Brown, | Jamaal Akbar MD | | | Required | Rehabilitatio | Spondylolist | [facility] | [address] | | | | n | hesis of | [address] | [address] [place] | | | | | lumbar | [address] | [place], [place] | | | | | region | [place], | [address] Phone: | | | | | Lumbar | [place] [address] | [phone] | | | | | radiculopath | Phone: | Fax: | | | | | y Lumbar | [phone] | [phone] | | | | | facet | Fax: | | | | | | arthropathy | [phone] | | | | | | | | | | | | | Osteoarthrit | | | | | | | is of spine | | | | | | | with | | | | | | | radiculopath | | | | | | | y, | | | | | | | unspecified | | | | | | | spinal | | | | | | | region | | | | | | | Procedures | | | | | | | DOS 2/3/16 | | | +--------+ + + + + + Reason for Visit + + + | Reason | Comments | + + + | New Patient | Back pain | + + + Evaluate & Treat (Routine) +--------+--------+ + + + + | Status | Reason | Specialty | Diagnoses / | Referred By | Referred To | | | | | Procedures | Contact | Contact | +--------+--------+ + + + + | Closed | | Neurosurgery | Diagnoses | Alberto, | Damien, | | | | | Low back | Kanika Carballo, | Uday Umanzor DO | | | | | pain | PA-C [address] | [address] | | | | | potentially | [address] | [address] | | | | | associated | [place] | [place] | | | | | with | [address] | [address] Phone: | | | | | radiculopath | [place], | [phone] | | | | | y | [place] | Fax: | | | | | Procedures | [address] | [phone] | | | | | [place] OFFICE | Phone: | | | | | | CONSULTATION | [phone] | | | | | | NEW/ESTAB | Fax: | | | | | | PATIENT 60 | [phone] | | | | | | MIN | | | +--------+--------+ + + + + Encounter Details +--------+---------+ + + + | Date | Type | Department | Care Team | Description | +--------+---------+ + + + | 07/02/ | Office | [facility] [place] | Surya Brower, | Spondylolisthesis of | | 2015 | Visit | NEUROSURGERY [address] | PA-C [address] | lumbar region | | | | [address] | [address] [place] | (Primary Dx); Lumbar | | | | [place], [place] | [place] [address] | radiculopathy; | | | | [address] | [phone] | Lumbar facet | | | | [phone] | | arthropathy; | | | | | | Osteoarthritis of | | | | | | spine with | | | | | | radiculopathy, | | | | | | unspecified spinal | | | | | | region | +--------+---------+ + + + Social History [...] + + + | Blood Pressure | 129/87 | 07/02/2015 3:09 PM | | | | | PST | | + + + + + | Pulse | 88 | 07/02/2015 3:09 PM | | | | | PST | | + + + + + | Temperature | - | - | | + + + + + | Respiratory Rate | 20 | 07/02/2015 3:09 PM | | | | | PST | | + + + + + | Oxygen Saturation | - | - | | + + + + + | Inhaled Oxygen | - | - | | | Concentration | | | | + + + + + | Weight | 102.1 kg (225 lb) | 07/02/2015 3:09 PM | | | | | PST | | + + + + + | Height | 180.3 cm (5' 11") | 07/02/2015 3:09 PM | | | | | PST | | + + + + + | Body Mass Index | 31.38 | 07/02/2015 3:09 PM | | | | | PST | | + + + + + documented in this encounter Patient Instructions Patient Instructions Surya Brower PA - 07/02/2015 4:28 PM PSTI will send you to see Dr. Morelos to receive injections that his discretion. We will also plan on you seeing Maria Victoria Quezada in approximately 4 months to discuss surgery. I suspect that he will offer you a 2 level lumbar fusion from L3-L5. The meantime, please continue to moderate your activity a s tolerated and take as little narcotic pain medication as possible. documented in this encounter Progress Notes Surya Brower PA - 07/02/2015 3:07 PM PSTFormatting of this note might be different f rom the original. FRANCOIS Lopez [address] [facility], [address] [place], [place] [address] FAX: NEUROSURGERY HISTORY AND PHYSICAL EXAMINATION CHIEF COMPLAINT: Chief Complaint Patient presents with New Patient Back pain HISTORY OF PRESENT ILLNESS: The patient is a 49 y.o. male with the complaint of back pain symptoms that began Around 199901/23/2009. Pain came on after doing long extended sessions o f August dancing. The patient describes low back pain that radiates into his left buttock. The symptoms have been stable. For a while, his pain was much worse. Over time, his pain did improve but it has now plateaued and he is tired of taking pain medication and having un acceptable pain levels. He rates the pain as Moderate to severe. The symptoms are continuo us. He describes the pain as aching and throbbing The patient describes leg symptoms that occur on primarily on the left. The leg symptoms a ccount for 25% of his symptoms. The leg symptoms are intermittent, and the symptoms travel from the back to the posterior buttock region. The patient does not report any change in bowel or bladder function recently. His symptoms improve with rest. His symptoms worsen with sitting, bending and twisting. He has tried PT, Massage, Chiropractic, Opioids, NSAIDS, Steroids, Injections, Muscle relax ers and Accupuncture. The patient is currently taking Tylenol 3, and tramadol.. These nicole ures Art in adequately controlling his pain. With these medications and activity modificati ons, his pain is still a 7 out of 10. He does not want to take a higher dose narcotics. He has done this in the past and they cause too much sedation and he is unable to function.. PAST MEDICAL HISTORY: Past Medical History Diagnosis Date ED (erectile dysfunction) BPH (benign prostatic hyperplasia) Right knee sprain 12/05/1992 Spondylosis 03/20/2011 Left hip pain Benign essential hypertension Spinal stenosis of lumbar region Male hypogonadism Lumbosacral radiculopathy History of tobacco use PAST SURGICAL HISTORY: Past Surgical History Procedure Laterality Date Facet neurotomy [place] Injection foramen epidural l/s Injection lumbar/sacral CURRENT MEDICATIONS: Current Outpatient Prescriptions Medication Sig Dispense Refill acetaminophen (TYLENOL) 325 mg tablet Take 325 mg by mouth every 4 hours as needed for Pain. Acetaminophen-Codeine (TYLENOL WITH CODEINE #3 PO) Take 325 tablets by mouth Daily as n eeded. Every 4 hrs HYDROcodone-acetaminophen (NORCO) 5-325 mg per tablet Take 1-2 tablets by mouth every 6 hours as needed for Pain. lisinopril (PRINIVIL,ZESTRIL) 40 MG tablet Take 40 mg by mouth Daily. Naproxen Sodium (ALEVE PO) Take 440 tablets by mouth Daily. oxyCODONE-acetaminophen (PERCOCET) 5-325 mg per tablet Take 1 tablet by mouth every 8 h ours as needed for Pain. tadalafil (CIALIS) 5 MG tablet Take 5 mg by mouth as needed for Erectile Dysfunction. Testosterone 12.5 MG PLLT by Implant route. traMADol (ULTRAM) 50 mg tablet Take 50 mg by mouth every 6 hours as needed for Pain. No current facility-administered medications for this visit. ALLERGIES: No Known Allergies SOCIAL HISTORY: The patient reports that he has never smoked. His smokeless tobacco use includes Chew. He reports that he does not drink alcohol or use illicit drugs. FAMILY HISTORY: Family History Problem Relation Age of Onset Rheum arthritis Other AUNT Alcohol abuse Other UNKNOWN RELATION Diabetes Other UNKNOWN RELATION Hypertension Other UNKNOWN RELATION REVIEW OF SYSTEMS GENERALLY: No fever, no night sweats, no anemia, no fatigue, no recent profound weight ch anges. EYES: No eye problems, + use of corrective lenses, no eye injury, no double vision, no bli ndness. EARS, NOSE, AND THROAT: No changes in taste or smell, no hearing difficulty, no ringing in the ears, no ear drainage, no dizziness, no voice changes, no difficulty swallowing, no sig nificant snoring, no sleep apnea, no sinus problems, no major dental work. NEUROLOGICALLY: Please see the review of systems discussed above in the history of present illness. In addition, the patient has muscle aching, change in walk, and back injury. PSYCHIATRIC: No depression, no sleep disorders, no anxiety, no bipolar disorder, no psycho tic episodes. CARDIOVASCULAR: No heart attacks, no heart murmur, no heart fluttering, no chest pain, no ankle swelling. LUNG DISEASE: No shortness of breath, no cough, no tuberculosis, no bloody cough, no asth ma, no emphysema/COPD. GASTROINTESTINAL: No bowel disease, no nausea or vomiting, no rectal bleeding, no constipa tion, no stool incontinence, no liver disease, no gallbladder disease, no abdominal pain, no ulcers. KIDNEY DISEASE: No urinary frequency, no painful or difficult urination, + urinary inconti nence. ENDOCRINE: No diabetes, no thyroid disease, no osteopenia or osteoporosis, no breast drain age. SKIN: No breast lumps, no skin changes, no rashes, no itches. HEMATOLOGIC/LYMPHATIC: No enlarged lymph nodes, no easy or unusual bleeding, no personal h istory of cancer. RHEUMATOLOGIC: No joint arthritis, no rheumatoid arthritis. PHYSICAL EXAMINATION: Blood pressure 129/87, pulse 88, resp. rate 20, height 1.803 m (5' 11"), weight 102.059 kg (225 lb). Body mass index is 31.39 kg/(m^2). GENERAL: Gianfranco Rodriguez is in no acute distress with unlabored respirations. The patien t does not appear uncomfortable throughout the exam today. HEENT: Head: Normocephalic/atraumatic with no areas of recent trauma. Eyes: Normal sclerae without icterus. Ears: No drainage or tenderness. Nasopharnyx: Clear without drainage. Oropharnyx: Clear without erythema. NECK (ANTERIOR): Supple and without palpable masses. CHEST: Clear to ausculation without crackles or wheeze. HEART: Regular rate and rhythm without murmurs. ABDOMEN: Soft, non-tender, non-distended, and without palpable masses. The patient is not o bese. SPINE: The lumbar spine shows there is tenderness in the midline of the L3, L4, L5 levels. To pal pation, there is no significant myofascial tenderness. There is no significant pain to provacative testing of the SI joint. There is no major deformity noted. EXTREMITIES: No cyanosis, clubbing, or edema. Distal pulses are palpable. NEUROLOGICAL EXAM: MENTAL STATUS: The patient is awake, alert, and oriented. He follows simple and complex commands. His speech is fluent, he comprehends speech well, and he repeats well. He has no apparent deficits with short or exterminator termite memory. CRANIAL NERVES: II: Acuity is intact. Ariza are full to confrontation. III, IV, : The pupils are reactive. Extraocular movements are intact. No ptosis is note d. V: Facial sensation is intact and symmetric. VII: Facial movements are symmetric. VIII: Hearing is intact bilaterally. IX, X: The uvula and palate move appropriately. XI: Shrug is equal bilaterally. XII: Tongue protrusion is midline. MOTOR EXAM: (5 IS NORMAL) * Indicates pain limited MUSCLE/ MOVEMENT: RIGHT LEFT Deltoids 5 5 Biceps 5 5 Triceps 5 5 Wrist Flexion 5 5 Wrist Extension 5 5 Median Intrinsics 5 5 Ulnar Intrinsics 5 5 Commissioned Defence [employer] Officer Strength 5 5 Hip Flexion 5 5 Hip Extension 5 5 Knee Flexion 5 5 Knee Extension 5 5 Dorsiflexion 5 5 Extensor Hallicus Longus 5 5 Plantarflexion 5 5 SENSORY EXAM: Sensory exam shows no diminished sensation to light touch or pain throughout the upper and lower extremities. REFLEXES: (2 OR 2+ IS NORMAL) REFLEX: RIGHT LEFT BICEPS 2+ 2+ BRACHIORADIALIS 2+ 2+ TRICEPS 2+ 2+ PATELLAR 2+ 2+ ACHILLES 2+ 2+ RED'S ABSENT ABSENT PLANTAR DOWNGOING DOWNGOING GAIT: Gait is steady. PERIPHERAL NERVE/MISC: Tinel is negative at the wrists and elbows bilaterally. Phalen is negative. Straight leg raise is negative bilaterally. Zeke's test of the hips is negative bilaterally. TEST AND RADIOGRAPHIC REVIEW: The patient's imaging was reviewed in detail with the patient today during the visit. The MRI from May 2015 shows lumbar spondylolisthesis at L3-L4 and L4-L5 with L4-L5 being th e worst. There is mild to moderate spinal stenosis at these 2 levels. There is significant facet hypertrophy with facet effusions. There is also moderately significant L4-L5 right f oraminal stenosis. Lumbar x-rays show spondylolisthesis at L3-L4 and L4-L5 on flexion extension views. There is mild rightward lumbar curvature. ASSESSMENT: NEUROSURGICAL DIAGNOSES: Encounter Diagnoses Name Primary? Spondylolisthesis of lumbar region Yes Lumbar radiculopathy Lumbar facet arthropathy Osteoarthritis of spine with radiculopathy, unspecified spinal region GENERAL DIAGNOSES: Past Medical History Diagnosis Date ED (erectile dysfunction) BPH (benign prostatic hyperplasia) Right knee sprain 12/05/1992 Spondylosis 03/20/2011 Left hip pain Benign essential hypertension Spinal stenosis of lumbar region Male hypogonadism Lumbosacral radiculopathy History of tobacco use PLAN: Gianfranco Rodriguez presented today, and it was a pleasure seeing this patient and assessing his neurologic problems. The patient has moderate significant 2 level spondylolisthesis. The patient has failed con servative care after Several years. I had a lengthy discussion with the patient about his options for care including surgical a nd non-surgical options. In discussing the surgical options, we discussed in detail the patient's options for possib le a TLIF at L3-L5. The patient understands that in most instances the recovery from surger y can be lengthy and sometimes difficult. The patient would like to meet with Dr. Damien goetz discussed potential surgery. In the meantime, to help minimize his pain in the upcoming months he would like to meet [facility] Dr. Morelos for evaluation and treatment and possible injections leading up to his visi t with Dr. Quezada. The patient would like to be considered for surgery as discussed and would like us to seek authorization and clearance for the operation. ELECTRONICALLY SIGNED BY: FRANCOIS Lopez, 07/02/2015 16:28 documented in this encounter Plan of Treatment + + +--------+ + + | Name | Type | Priori | Associated Diagnoses | Order Schedule | | | | ty | | | + + +--------+ + + | Ambulatory referral | Outpatient | Routin | Spondylolisthesis | Ordered: 07/02/2015 | | to Physical Medicine | Referral | e | of lumbar region | | | Rehab | | | Lumbar radiculopathy | | | | | | Lumbar facet | | | | | | arthropathy | | | | | | Osteoarthritis Of | | | | | | Spine With | | | | | | Radiculopathy, | | | | | | Unspecified Spinal | | | | | | Region | | + + +--------+ + + documented as of this encounter Visit Diagnoses + + | Diagnosis | + + | Spondylolisthesis of lumbar region - Primary Acquired spondylolisthesis | + + | Lumbar radiculopathy Thoracic or lumbosacral neuritis or radiculitis, unspecified | + + | Lumbar facet arthropathy Lumbosacral spondylosis without myelopathy | + + | Osteoarthritis of spine with radiculopathy, unspecified spinal region | + + documented in this encounter
--- OUTSIDE RECORDS SUMMARY | ~2019-07-05 | XMS | Clinical Summary ---
Demographics + + + | Address | [address] | | | [place] [address] | + + + | Home Phone | | + + + | Preferred Language | Unknown | + + + | Marital Status | | + + + | Congregational Affiliation | Unknown | + + + | Race | Unknown | + + + | Ethnic Group | Unknown | + + + Author + + + | Author | [facility] | | | and [place] | + + + | Organization | [facility] | | | [...] Team Providers + +------+ + | Care Physicist Astrophysics Name | Role | Phone | + +------+ + | Kanika Dominguez PA-C | PCP | | + +------+ + Allergies No Known Allergies Medications + + + +---------+------+------+-------+ | Medication | Sig | Dispensed | Refills | Star | End | Statu | | | | | | t | Date | s | | | | | | Date | | | + + + +---------+------+------+-------+ | tadalafil (CIALIS) | Take 5 mg by mouth | | 0 | | | Activ | | 5 MG tablet | as needed for | | | | | e | | | Erectile | | | | | | | | Dysfunction. | | | | | | + + + +---------+------+------+-------+ | NARCAN 4 MG/0.1ML | instill 1 spray IN 1 | | 0 | 02/1 | | Activ | | | NOSTRIL may repeat | | | 6/20 | | e | | | EVERY 2 TO 3 MINUTES | | | 17 | | | | | UNTIL EMERGENCY | | | | | | | | ARRIVES | | | | | | + + + +---------+------+------+-------+ | testosterone | Apply 25 mg of | | 0 | | | Activ | | (ANDROGEL) 25 mg/2.5 | testosterone | | | | | e | | g (1%) gel | topically Daily. | | | | | | + + + +---------+------+------+-------+ | lisinopril | | | 0 | 04/2 | | Activ | | (PRINIVIL,ZESTRIL) | | | | 5/20 | | e | | 40 MG tablet | | | | 18 | | | + + + +---------+------+------+-------+ | cholecalciferol | Take 5,000 Units by | | 0 | | | Activ | | (VITAMIN D-3) 5000 | mouth Daily. | | | | | e | | units TABS | | | | | | | + + + +---------+------+------+-------+ Active Problems + + + | Problem | Noted Date | + + + | HTN (hypertension) | 09/01/2017 | + + + | Obesity | 09/01/2017 | + + + | Left lumbar radiculopathy | 10/30/2015 | + + + | Chronic low back pain | 07/25/2015 | + + + | DDD (degenerative disc disease), lumbar | 07/25/2015 | + + + | Spinal stenosis of lumbar region | 07/25/2015 | + + + | Facet arthritis of lumbar region | 07/25/2015 | + + + Family History + + +------+ + | Medical History | Relation | Name | Comments | + + +------+ + | Arthritis | Mother | | | + + +------+ + | Rheum arthritis | Other | | AUNT | + + +------+ + | Alcohol abuse | Other | | UNKNOWN RELATION | + + +------+ + | Diabetes | Other | | UNKNOWN RELATION | + + +------+ + | Hypertension | Other | | UNKNOWN RELATION | + + +------+ + + +------+--------+ + | Relation | Name | Status | Comments | + +------+--------+ + | Daughter | | Alive | | + +------+--------+ + | Mother | | | | + +------+--------+ + | Other | | Alive | AUNT | + +------+--------+ + | Other | | | | + +------+--------+ + | Other | | | | + +------+--------+ + | Other | | | | + +------+--------+ + | Other | | | | + +------+--------+ + | Son | | Alive | | + +------+--------+ + | Son | | Alive | | + +------+--------+ + Social History + +-------+ +--------+------+ | [...] | + +------+---+---------+ + + | Comments: PARRISH 03/22/10 Started [...] recent travel history available. | + + Last Filed Vital Signs + + + + + | Vital Sign | Reading | Time Taken | Comments | + + + + + | Blood Pressure | 120/80 | 03/22/2018 11:30 AM | | | | | PDT | | + + + + + | Pulse | 85 | 03/22/2018 11:30 AM | | | | | PDT | | + + + + + | Temperature | 36.2 C (97.2 F) | 09/02/2017 2:55 PM | | | | | PDT | | + + + + + | Respiratory Rate | 16 | 03/22/2018 11:30 AM | | | | | PDT | | + + + + + | Oxygen Saturation | 98% | 03/22/2018 11:30 AM | | | | | PDT | | + + + + + | Inhaled Oxygen | - | - | | | Concentration | | | | + + + + + | Weight | 100.7 kg (222 lb 0.1 | 03/22/2018 11:30 AM | | | | oz) | PDT | | + + + + + | Height | 180.3 cm (5' 11") | 02/17/2018 8:01 AM | | | | | PDT | | + + + + + | Body Mass Index | 30.96 | 02/17/2018 8:01 AM | | | | | PDT | | + + + + + Plan of Treatment + + + + + | Health Maintenance | Due Date | Last Done | Comments | + + + + + | Vaccine: | | | | | Dtap/Tdap/Td (1 - | 8 | | | | Tdap) | | | | + + + + + | Colorectal Cancer | | | | | Screening [...] filefrom Last 3 Months Insurance + +--------+ +--------+ +---------+--------+ | Payer | Benefi | Subscriber | Effect | Phone | Address | Type | | | t Plan | ID | frankie | | | | | | / | | Dates | | | | | | Group | | | | | | + +--------+ +--------+ +---------+--------+ | [employer] | [employer] | [id number] | | [phone] | | Medica | | MEDICAID HMO | HEALTH | | [id number] | 1 | | id | | | MDCD | | esent | | | | | | HMO OR | | | | | | + +--------+ +--------+ +---------+--------+ | [employer] | [employer] | [id number] | 06/22/19 | | | Indemn | | SERVICE | YELLOW | | 01-Pre | | | ity | | | HAWK | | sent | | | | + +--------+ +--------+ +---------+--------+ + +--------+ +--------+ + + | Guarantor Name | Accoun | Relation to | Date | Phone | Billing Address | | | t Type | Patient | of | | | | | | | | | | + +--------+ +--------+ + + | Gianfranco Rodriguez | Person | Self | [birth year] | [address] | | | al/[place]is | | 1966 | [phone] | [place] | | | [place] | | | [address] (Home) | [id number] | + +--------+ +--------+ + + Advance Directives + + + + + | Type | Date Recorded | Patient | Explanation | | | | 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
--- OUTSIDE RECORDS SUMMARY | ~2019-07-05 | XMS | Encounter Summary ---
Demographics + + + | Address | [address] | | | [place] [address] | + + + | Home Phone | | + + + | Preferred Language | Unknown | + + + | Marital Status | | + + + | Worship Affiliation | Unknown | + + + | Race | Unknown | + + + | Ethnic Group | Unknown | + + + Author + + + | Author | [facility] | | | and [place] | + + + | Organization | [facility] | | [...] Team Providers + +------+ + | Care Recreation Therapy Teacher Name | Role | Phone | + +------+ + | Kanika Dominguez PA-C | PCP | | + +------+ + Encounter Details +--------+---------+ + + + | Date | Type | Department | Care Team | Description | +--------+---------+ + + + | 08/20/ | Office | [facility] | Ramón Lobato, | Complete tear of | | 2018 | Visit | ORTHOPEDIC SURGERY | [address] | left rotator cuff | | | | [address] [facility] | [place] | (Primary Dx) | | | | [place] | [id number] | | | | | [address] | | | | | | [phone] | | | +--------+---------+ + + + [...] + + documented as of this encounter Progress Notes Ramón Lobato MD - 08/20/2017 2:30 PM PSTPatient returns preop left shoulder scope and open acromioplasty, distal clavicle excision, rotator cuff repair and probable biceps tenode sis We again went over what to expect with the surgery and the recovery period and the inherent risks of the operation meds reviewed He has quit smoking and feels much better History and physical to follow 2: 31 PM PSTdocumented in this encounter Plan of Treatment Not on filedocumented as of this encounter Visit Diagnoses + + | Diagnosis | + + | Complete tear of left rotator cuff - Primary | + + documented in this encounter"
--- OUTSIDE RECORDS SUMMARY | ~2019-07-05 | XMS | Encounter Summary ---
Demographics + + + | Address | [address] | | | [place] [address] | + + + | Home Phone | | + + + | Preferred Language | Unknown | + + + | Marital Status | | + + + | Jew Affiliation | Unknown | + + + | Race | Unknown | + + + | Ethnic Group | Unknown | + + + Author + + + | Author | [facility] | | | and [place] | + + + | Organization | [facility] | | | [...] Team Providers + +------+ + | Care Angle Furnaceman Name | Role | Phone | + +------+ + | Kanika Dominguez PA-C | PCP | | + +------+ + Encounter Details +--------+ + + + + | Date | Type | Department | Care Team | Description | +--------+ + + + + | 01/27/ | Hospital | [facility] | Conversion | Unknown cause of | | 2015 | Encounter | CONVERSION [address] | Transaction, | injury | | | | [address] | Provider Unknown | | | | | [place] | | | | | | [phone] | (Fax) | | | | | [phone] | | | +--------+ + + + [...] | + +--------+ + + + | CT LUMBAR SPINE WO | Routin | 08/30/2015 | | Results for this | | CONTRAST | e | 8:57 AM | | procedure are in the | | | | PST | | results section. | + +--------+ + + + documented in this encounter Results CT Lumbar Spine wo Contrast (08/30/2015 8:57 AM PST) + + | Specimen | + [...] + | Diagnosis | + + | Unknown cause of injury Unspecified accident | + + documented in this encounter"
--- OUTSIDE RECORDS SUMMARY | ~2019-07-05 | XMS | Encounter Summary ---
Demographics + + + | Address | [address] | | | [place] [address] | + + + | Home Phone | | + + + | Preferred Language | Unknown | + + + | Marital Status | | + + + | Confucianist Affiliation | Unknown | + + + [...] Team Providers + +------+ + | Care Fire Equipment Inspector Helper Name | Role | Phone | + +------+ + | Kanika Dominguez PA-C | PCP | | + +------+ + Encounter Details +--------+ + + + + | Date | Type | Department | Care Team | Description | +--------+ + + + + | 06/22/ | Hospital | [facility] | Conversion | Unknown cause of | | 2016 | Encounter | CONVERSION DEP [address] | Transaction, | injury, initial | | | | [address] | Provider Unknown | encounter | | | | [facility] [place] | [phone] | | | | | [phone] | | | | | | [phone] | | | +--------+ + + + [...] + +--------+ + + + | FL C ARM < 1 HOUR | Routin | 02/09/2015 | | Results for this | | | e | 7:53 AM | | procedure are in the | | | | PDT | | results section. | + +--------+ + + + documented in this encounter Results FL C-Arm < 1 Hour (02/09/2015 7:53 AM PDT) + + | Specimen | + + | | + + + + + | Narrative | Performed At | + + + | This is a non-reportable procedure without a radiologist report and | | | is used for image storage only | | + + + + + | Procedure Note | + + | BaronWilian Conversion - 02/03/2019 5:12 AM PDT This is a non-reportable procedure | | without a radiologist report and isused for image storage only | + + documented in this encounter Visit Diagnoses + + | Diagnosis | + + | Unknown cause of injury, initial encounter | + + documented in this encounter"
--- OUTSIDE RECORDS SUMMARY | ~2019-07-05 | XMS | Encounter Summary ---
Demographics + + + | Address | [address] | | | [place] [address] | + + + | Home Phone | | + + + | Preferred Language | Unknown | + + + | Marital Status | | + + + | Zoroastrianism Affiliation | Unknown | + + + | Race | Unknown | + + + | Ethnic Group | Unknown | + + + Author + + + | Author | [facility] | | | and [place] | + + + | Organization | [facility] | | [...] Team Providers + +------+ + | Care Production Service Manager Name | Role | Phone | + +------+ + | Kanika Dominguez PA-C | PCP | | + +------+ + Encounter Details +--------+ + + + + | Date | Type | Department | Care Team | Description | +--------+ + + + + | 11/22/ | Orders Only | [facility] [place] | Udya Quezada, | Left lumbar | | 2016 | | NEUR[address]UR[address]ERY [address] | DO [address] | radiculopathy | | | | [address] | [address] | (Primary Dx); | | | | [place] | [address] | Chronic low back | | | | [address] | | pain, unspecified | | | | [phone] | | back pain | | | | | | laterality, with | | | [...] | | | | | | region ([facility]) | +--------+ + + + [...] as of this encounter Plan of Treatment + +---------+--------+ + + | Name | Type | Priori | Associated Diagnoses | Order Schedule | | | | ty | | | + +---------+--------+ + + | CBC with | Lab | Routin | Left lumbar | 1 Occurrences | | Differential | | e | radiculopathy | starting 11/23/2015 | | | | | Chronic Low Back | until 11/22/2016 | | | | | Pain, Unspecified | | | | | | Back Pain | | | | | | Laterality, With | | | | | | Sciatica Presence | | | | | | Unspecified DDD | | | | | | (degenerative disc | | | | | | disease), lumbar | | | | | | Spinal stenosis of | | | | | | lumbar region Facet | | | | | | arthritis of lumbar | | | | | | region | | + +---------+--------+ + + | ECG 12 lead | ECG | Routin | Left lumbar | 1 Occurrences | | | | e | radiculopathy | starting 11/23/2015 | | | | | Chronic Low Back | until 11/23/2016 | | | | | Pain, Unspecified | | | | | | Back Pain | | | | | | Laterality, With | | | | | | Sciatica Presence | | | | | | Unspecified DDD | | | | | | (degenerative disc | | | | | | disease), lumbar | | | | | | Spinal stenosis of | | | | | | lumbar region Facet | | | | | | arthritis of lumbar | | | | | | region | | + +---------+--------+ + + | Protime INR | Lab | Routin | Left lumbar | 1 Occurrences | | | | e | radiculopathy | starting 11/23/2015 | | | | | Chronic Low Back | until 11/23/2016 | | | | | Pain, Unspecified | | | | | | Back Pain | | | | | | Laterality, With | | | | | | Sciatica Presence | | | | | | Unspecified DDD | | | | | | (degenerative disc | | | | | | disease), lumbar | | | | | | Spinal stenosis of | | | | | | lumbar region Facet | | | | | | arthritis of lumbar | | | | | | region | | + +---------+--------+ + + | XR Chest PA and | Imaging | Routin | Left lumbar | Expected: | | Lateral | | e | radiculopathy | 11/23/2015, Expires: | | | | | Chronic Low Back | 11/23/2016 | | | | | Pain, Unspecified | | | | | | Back Pain | | | | | | Laterality, With | | | | | | Sciatica Presence | | | | | | Unspecified DDD | | | | | | (degenerative disc | | | | | | disease), lumbar | | | | | | Spinal stenosis of | | | | | | lumbar region Facet | | | | | | arthritis of lumbar | | | | | | region | | + +---------+--------+ + + | PTT | Lab | Routin | Left lumbar | 1 Occurrences | | | | e | radiculopathy | starting 11/23/2015 | | | | | Chronic Low Back | until 11/23/2016 | | | | | Pain, Unspecified | | | | | | Back Pain | | | | | | Laterality, With | | | | | | Sciatica Presence | | | | | | Unspecified DDD | | | | | | (degenerative disc | | | | | | disease), lumbar | | | | | | Spinal stenosis of | | | | | | lumbar region Facet | | | | | | arthritis of lumbar | | | | | | region | | + +---------+--------+ + + | Basic Metabolic | Lab | Routin | Left lumbar | 1 Occurrences | | Panel | | e | radiculopathy | starting 11/23/2015 | | | | | Chronic Low Back | until 11/23/2016 | | | | | Pain, Unspecified | | | | | | Back Pain | | | | | | Laterality, With | | | | | | Sciatica Presence | | | | | | Unspecified DDD | | | | | | (degenerative disc | | | | | | disease), lumbar | | | | | | Spinal stenosis of | | | | | | lumbar region Facet | | | | | | arthritis of lumbar | | | | | | region | | + +---------+--------+ + + documented as of this encounter Visit Diagnoses + + | Diagnosis | + + | Left lumbar radiculopathy - Primary Thoracic or lumbosacral neuritis or radiculitis, | [...]
--- OUTSIDE RECORDS SUMMARY | ~2019-07-05 | XMS | Encounter Summary ---
Demographics + + + | Address | [address] | | | [place] [address] | + + + | Home Phone | | + + + | Preferred Language | Unknown | + + + | Marital Status | | + + + | Scientology Affiliation | Unknown | + + + | Race | Unknown | + + + | Ethnic Group | Unknown | + + + Author + + + | Author | [facility] | | | and [place] | + + + | Organization | [facility] | | | [...] Team Providers + +------+ + | Care Industrial Locomotive Operator Name | Role | Phone | + [...] | pain laterality, | | | | [place], [place] | [address] | unspecified location | | | | [address] | | (Primary Dx) | | | | [phone] | | | +--------+ + + + [...] MRI MAY 2015, LUMBAR RADIOGRAPHS | [facility] | | NOVEMBER 2011 FINDINGS: Five non rib-bearing, lumbar type vertebrae | [facility] | | are visible. An AP view [...] ST. | [address] | [place] | [phone] | | [facility] | | [address] | | | - IMAGING | | | | + + + + + documented in this encounter Visit Diagnoses + + | Diagnosis | + + | Back pain, unspecified back pain laterality, unspecified location - Primary | + + documented in this encounter"
--- OUTSIDE RECORDS SUMMARY | ~2019-07-05 | XMS | Encounter Summary ---
Demographics + + + | Address | [address] | | | [place] [address] | + + + | Home Phone | | + + + | Preferred Language | Unknown | + + + | Marital Status | | + + + | Jew Affiliation | Unknown | + + + | Race | Unknown | + + + | Ethnic Group | Unknown | + + + Author + + + | Author | [facility] | | | and [place] | + + + | Organization | [facility] | | | [...] Team Providers + +------+ + | Care Tax Examiner Name | Role | Phone | + +------+ + | Kanika Dominguez PA-C | PCP | | + +------+ + Encounter Details +--------+ + + + + | Date | Type | Department | Care Team | Description | +--------+ + + + + | 06/28/ | Abstract | [facility] [place] | Surya Brower, | | | 2015 | | NEUR[address]UR[address]ERY [address] | [place] [address] | | | | | [address] | [address] [place] | | | | | [place] | [place] [address] | | | | | [address] | [phone] | | | | | [phone] | | | +--------+ + + + [...]
--- OUTSIDE RECORDS SUMMARY | ~2019-07-05 | XMS | Encounter Summary ---
Demographics + + + | Address | [address] | | | [place] [address] | + + + | Home Phone | | + + + | Preferred Language | Unknown | + + + | Marital Status | | + + + | Spiritism Affiliation | Unknown | + + + | Race | Unknown | + + + | Ethnic Group | Unknown | + + + Author + + + | Author | [facility] | | | and [place] | + + + | Organization | [facility] | | | [...] Team Providers + +------+ + | Care Ladle Watcher Name | Role | Phone | + +------+ + PCP | Unavailable | + +------+ + Encounter Details +--------+ + + + + | Date | Type | Department | Care Team | Description | +--------+ + + + + | 05/28/ | Hospital | [facility] | | | | 2010 | Encounter | MED CTR XRAY [address] | | | | | | [address] [place] | | | | | | [place] [address] | | | | | | [phone] | | | +--------+ + + + [...] + +--------+ + + + | MRI PELVIS WO | | 05/28/2011 | | Results for this | | CONTRAST | | 11:27 AM | | procedure are in the | | | | PST | | results section. | + +--------+ + + + | MRI LUMBAR SPINE WO | | 05/28/2011 | | Results for this | | CONTRAST | | 11:27 AM | | procedure are in the | | | | PST | | results section. | + +--------+ + + + documented in this encounter Results MRI Pelvis wo Contrast (05/28/2011 11:27 AM PST) + + | Specimen | + + | | + + + + + | Narrative | Performed At | + + + | [facility] | [place] | | [address] [facility] | [facility] | | MRI OF PELVIS WITHOUT CONTRAST: | DIAG IMG | | 05/28/2011 CLINICAL HISTORY: LUMBAR PAIN RADIATING TO THE LEFT | | | LOWER EXTREMITY AND LEFT SI JOINT. TECHNIQUE: Oblique coronal | | | T1 and STIR; sagittal T1 and STIR; transaxial T1 and STIR. | | | FINDINGS: Oblique coronal images through the sacrum demonstrate | | | intact sacrum with normal bone marro w and patent foramina. The | | | presacral space is clear. There is no fracture or mass. The region | | | of t he sacral plexus is unremarkable. The sacrosciatic notch and | | | sciatic nerve are incompletely imaged, but grossly symmetric and | | | unremarkable bilaterally. There is no significant SI joint fluid. | | | There a re degenerative changes at the superior SI joints | | | bilaterally with osteophyte formation. The visuali zed lumbosacral | | | junction is unremarkable. There is disk disease at the L4-5 level, | | | which is best ass essed with the lumbar MR study. Internal pelvic | | | contents are unremarkable. IMPRESSION: DEGENERATIVE CHANGES OF | | | THE SI JOINTS BILATERALLY, OTHERWISE UNREMARKABLE. Dictated | | | Date/Time: 05/29/2011 08:52 Transcribed Date/Time: 05/29/2011 | | | 08:59 Kiln Worker: <Electronically Signed by Gideon Joseph | | | MD Kajal> 05/29/11 1219 | | + + + + + | Procedure Note | + + | Baron, Wilian Conversion - 07/29/2013 4:21 PM [facility] | | Diagnostic Imaging Department [address] [facility] [place] | | MRI OF PELVIS WITHOUT CONTRAST: 05/28/2011 CLINICAL | | HISTORY: LUMBAR PAIN RADIATING TO THE LEFT LOWER EXTREMITY AND LEFT SI JOINT. | | TECHNIQUE: Oblique coronal T1 and STIR; sagittal T1 and STIR; transaxial T1 and STIR. | | FINDINGS: Oblique coronal images through the sacrum demonstrate intact sacrum with | | normal bone marrow and patent foramina. The presacral space is clear. There is no | | fracture or mass. The region of the sacral plexus is unremarkable. The sacrosciatic | | notch and sciatic nerve are incompletely imaged, but grossly symmetric and unremarkable | | bilaterally. There is no significant SI joint fluid. There are degenerative changes at | | the superior SI joints bilaterally with osteophyte formation. The visualized | | lumbosacral junction is unremarkable. There is disk disease at the L4-5 level, which is | | best assessed with the lumbar MR study. Internal pelvic contents are unremarkable. | | IMPRESSION: DEGENERATIVE CHANGES OF THE SI JOINTS BILATERALLY, OTHERWISE UNREMARKABLE. | | Dictated Date/Time: 05/29/2011 08:52Transcribed Date/Time: 05/29/2011 | | 08:59Transcriptionist: <Electronically Signed by Gideon Rdz MD> 05/29/11 | | 1219 | |zed lumbosacral junction is unremarkable. There is disk disease at the L4-5 level, which i s best ass | |essed with the lumbar MR study. Internal pelvic contents are unremarkable. | | | |IMPRESSION: DEGENERATIVE CHANGES OF THE SI JOINTS BILATERALLY, OTHERWISE UNREMARKABLE. | | | |Dictated Date/Time: 05/29/2011 08:52 | |Transcribed Date/Time: 05/29/2011 08:59 | |Kiln Worker: | |<Electronically Signed by Gideon Rdz MD> 05/29/11 1219 | + + + +---------+ + + | Performing | Address | City/State/Zipcode | Phone Number | | Organization | | | | + +---------+ + + | [place] | | | | | [facility] | | | | + +---------+ + + MRI Lumbar Spine wo Contrast (05/28/2011 11:27 AM PST) + + | Specimen | + + | | + + + + + | Narrative | Performed At | + + + | [facility] | [facility] | | [address] [facility] | [facility] | | LUMBAR SPINE MR WITHOUT CONTRAST | DIAG IMG | | 05/28/2011 CLINICAL HISTORY: LUMBAR PAIN RADIATING TO THE LEFT | | | LOWER EXTREMITY TECHNIQUE: Sagittal and transaxial T1, sagittal | | | and transaxial fast spin echo PD/T2. FINDINGS: Lumbar bodies | | | demonstrate normal height, alignment and marrow signal. The canal | | | diameter i s normal. There are mild ventral impressions on the thecal | | | sac at both 4-5 and at 3-4. There is inte rvertebral disc | | | desiccation at both levels. The conus terminates normally at about | | | the thoracolumbar junction. Extraspinal structures are | | | unremarkable. L3-4: High signal annular tear is associated | | | with a small focal central contained disc herniation. This | | | minimally indents the ventral thecal sac. There is mild degenerative | | | facet hypertrophy. L4-5: Broad based disc herniation flattens | | | the ventral thecal sac. The canal is also narrowed by med ial facet | | | hypertrophy producing overall mild degree of canal stenosis. There | | | is no foraminal impinge ment. L5-S1: Unremarkable. | | | IMPRESSION: 1. DISC DISEASE AND FACET SPONDYLOSIS AT 4-5 WITH | | | OVERALL MILD DEGREE OF CANAL STENOSIS. 2. SMALL CONTAINED | | | CENTRAL DISC HERNIATION WITH ANNULAR TEAR AT THE 3-4 LEVEL WITHOUT | | | SIGNIFICANT CE NTRAL OR LATERAL STENOSIS. Dictated Date/Time: | | | 05/29/2011 08:52 Transcribed Date/Time: 05/29/2011 09:01 | | | Kiln Worker: <Electronically Signed by Gideon Rdz, | | | MD> 05/29/11 1219 | | + + + + + | Procedure Note | + + | Baron, Wilian Conversion - 07/29/2013 4:21 PM [facility] | | Diagnostic Imaging Department [address] [facility] | | LUMBAR SPINE MR WITHOUT CONTRAST 05/28/2011 CLINICAL | | HISTORY: LUMBAR PAIN RADIATING TO THE LEFT LOWER EXTREMITY TECHNIQUE: Sagittal and | | transaxial T1, sagittal and transaxial fast spin echo PD/T2. FINDINGS: Lumbar bodies | | demonstrate normal height, alignment and marrow signal. The canal diameter is normal. | | There are mild ventral impressions on the thecal sac at both 4-5 and at 3-4. There is | | intervertebral disc desiccation at both levels. The conus terminates normally at about | | the thoracolumbar junction. Extraspinal structures are unremarkable. L3-4: High | | signal annular tear is associated with a small focal central contained disc herniation. | | This minimally indents the ventral thecal sac. There is mild degenerative facet | | hypertrophy. L4-5: Broad based disc herniation flattens the ventral thecal sac. The | | canal is also narrowed by medial facet hypertrophy producing overall mild degree of | | canal stenosis. There is no foraminal impingement. L5-S1: Unremarkable. IMPRESSION: | | 1. DISC DISEASE AND FACET SPONDYLOSIS AT 4-5 WITH OVERALL MILD DEGREE OF CANAL | | STENOSIS. 2. SMALL CONTAINED CENTRAL DISC HERNIATION WITH ANNULAR TEAR AT THE 3-4 | | LEVEL WITHOUT SIGNIFICANT CENTRAL OR LATERAL STENOSIS. Dictated Date/Time: 05/29/2011 | | 08:52Transcribed Date/Time: 05/29/2011 09:01Transcriptionist: <Electronically | | Signed by Gideon Rdz MD> 05/29/11 1219 | | | |L4-5: Broad based disc herniation flattens the ventral thecal sac. The canal is also narro wed by med | |ial facet hypertrophy producing overall mild degree of canal stenosis. There is no foramin al impinge | |ment. | | | |L5-S1: Unremarkable. | | | |IMPRESSION: | |1. DISC DISEASE AND FACET SPONDYLOSIS AT 4-5 WITH OVERALL MILD DEGREE OF CANAL STENOSIS. | | | |2. SMALL CONTAINED CENTRAL DISC HERNIATION WITH ANNULAR TEAR AT THE 3-4 LEVEL WITHOUT SIGN IFICANT CE | |NTRAL OR LATERAL STENOSIS. | | | |Dictated Date/Time: 05/29/2011 08:52 | |Transcribed Date/Time: 05/29/2011 09:01 | |Kiln Worker: | |<Electronically Signed by Gideon Rdz MD> 05/29/11 1219 | + + + +---------+ + + | Performing | Address | City/State/Zipcode | Phone Number | | Organization | | | | + +---------+ + + | [place] | | | | | [facility] | | | | + +---------+ + + documented in this encounter Visit Diagnoses Not on filedocumented in this encounter"
--- OUTSIDE RECORDS SUMMARY | ~2019-07-05 | XMS | Clinical Summary ---
Demographics + + + | Address | [address] | | | [place] [address] | + + + | Home Phone | | + + + | Preferred Language | Unknown | + + + | Marital Status | Unknown | + + + | Yarsanism Affiliation | Unknown | + + + | Race | Unknown | + + + | Ethnic Group | Unknown | + + + Author + + + | Author | [facility] (Historical as of | | | 02-05-19) | + + + | Organization | [facility] (Historical as of | | | 02-05-19) | + + + | Address | Unknown | + + + | Phone | Unavailable | + + + Support + + + + + | Name | Relationship | Address | Phone | + + + + + | Amanda Medina | ECON | [address] | | | | | [place], [place] | | | | | [address] | | + + + + + Care Team Providers + +------+ + | Care Monotyper Name | Role | Phone | + [...] | | + +--------+ +------+-------+ + | [facility] | YELLOW | [id number] | | | | | PLANS | [place] | | | | | + +--------+ +------+-------+ + | MEDICAID | [facility] | [id number] | | | [address] | | | N | | | | [place] | | | [place] | | | | [address] | | | 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
--- OUTSIDE RECORDS SUMMARY | ~2019-07-05 | XMS | Encounter Summary ---
Demographics + + + | Address | [address] | | | [place] [address] | + + + | Home Phone | | + + + | Preferred Language | Unknown | + + + | Marital Status | | + + + | Alevism Affiliation | Unknown | + + + | Race | Unknown | + + + | Ethnic Group | Unknown | + + + Author + + + | Author | [facility] | | | and [place] | + + + | Organization | [facility] | | | [...] Team Providers + +------+ + | Care Manager Manufacturing Name | Role | Phone | + [...] | | | | | | | VA SHLDR | | | | | | | ARTHROSCOP,E | | | | | | | XTEN DEBRIDE | | | | | | | VA REPAIR | | | | | | | ROTATOR | | | | | | | CUFF,CHRONIC | | | | | | | VA PARTIAL | | | | | | | REMOVAL, | | | | | | | CLAVICLE VA | | | | | | | PARTIAL | | | | | | | REMOVAL/REPA | | | | | | | IR,ACROMION | | | | | | | VA REPAIR | | | | | | [...] | +--------+ + + + + | 09/02/ | Anesthesia | [facility] | Hansel Garcia | | | 2018 | Event | [facility] | MD Kallie [address] | | | | | [address] | [address] | | | | | [place], [place] | [place] [address] | | | | | [id number] | [phone] | | | | | [phone] | | | +--------+ + + + + Anesthesia Record + + + + + | Procedure Name | Responsible | Anesthesia Start | Anesthesia Stop Time | | | Anesthesiologist | Time | | + + + + + | Left Shoulder Open | Hansel Denny | 03/14/18 1300 | 09/02/17 1501 | | Rotator Cuff Repair, | MD Radha | | | | Acromioplasty, and | | | | | Distal Clavicle | | | | | Excision w/ Biceps | | | | | Tendodesis (Left | | | | | Shoulder) | | | | + + + + + +----+---+ + + | Da | T | Event | Comment | | te | i | | | | | m | | | | | e | | | +----+---+ + + | 03 | 1 | | | | /1 | 1 | | | | 4/ | 4 | | | | 20 | 8 | | | | 18 | | | | +----+---+ + + | | 1 | An Start | | | | 2 | Data | | | | 4 | | | | | 1 | | | +----+---+ + + | | 1 | an lisa now | | | | 2 | | | | | 4 | | | | | 7 | | | +----+---+ + + | | 1 | Block Start | | | | 2 | | | | | 4 | | | | | 9 | | | +----+---+ + + | | 1 | AN Block | | | | 2 | End | | | | 5 | | | | | 9 | | | +----+---+ + + | | 1 | an stop | | | | 3 | data | | | | 0 | | | | | 0 | | | +----+---+ + + | | 1 | An Checkout | Pre-use anesthesia machine/equipment checkout. | | | 3 | | | | | 0 | | | | | 0 | | | +----+---+ + + | | 1 | An Start | Reassessment prior to anesthesia induction/procedure. | | | 3 | | | | | 0 | | | | | 0 | | | +----+---+ + + | | 1 | Preoxygenat | | | | 3 | ed | | | | 0 | | | | | 5 | | | +----+---+ + + | | 1 | An | | | | 3 | Induction | | | | 0 | | | | | 6 | | | +----+---+ + + | | 1 | An | #5 LMA placed | | | 3 | Intubation | | | | 0 | | | | | 9 | | | +----+---+ + + | | 1 | Quick Note | Bronchospasm with LMA in place, frequent coughing, tight | | | 3 | | ventilations on bag - attempting to deepen with inhaled agent and | | | 1 | | propofol bolus. | | | 2 | | | +----+---+ + + | | 1 | Quick Note | Decision made to move toward ETT - intubated without muscle | | | 3 | | relaxant and given sux after ETT in place. High pressure | | | 1 | | ventilations needed to move any air. | | | 6 | | | +----+---+ + + | | 1 | An | | | | 3 | Intubation | | | | 1 | | | | | 7 | | | +----+---+ + + | | 1 | an lisa now | | | | 3 | | | | | 2 | | | | | 1 | | | +----+---+ + + | | 1 | Antibiotic | | | | 3 | Given | | | | 2 | | | | | 6 | | | +----+---+ + + | | 1 | [place] | | | | 3 | 43-degrees | | | | 3 | | | | | 2 | | | +----+---+ + + | | 1 | an lisa now | | | | 3 | | | | | 3 | | | | | 2 | | | +----+---+ + + | | 1 | Pre-Procedu | | | | 3 | ral Timeout | | | | 3 | Completed | | | | 2 | | | +----+---+ + + | | 1 | First | | | | 3 | Inc/Proc St | | | | 3 | | | | | 3 | | | +----+---+ + + | | 1 | an lisa now | | | | 3 | | | | | 4 | | | | | 5 | | | +----+---+ + + | | 1 | Quick Note | Chart reviewed again - pt took ARB this am will rhodes low BP | | | 3 | | with vasopressin bolus. | | | 4 | | | | | 8 | | | +----+---+ + + | | 1 | [place] off | | | | 4 | | | | | 3 | | | | | 0 | | | +----+---+ + + | | 1 | an lisa now | | | | 4 | | | | | 3 | | | | | 0 | | | +----+---+ + + | | 1 | Oropharynx | | | | 4 | Suctioned | | | | 4 | | | | | 4 | | | +----+---+ + + | | 1 | Breathing | | | | 4 | Spontaneous | | | | 4 | ly | | | | 6 | | | +----+---+ + + | | 1 | Moving | | | | 4 | Purposefull | | | | 4 | y | | | | 6 | | | +----+---+ + + | | 1 | Extubated | | | | 4 | Awake | | | | 4 | | | | | 6 | | | +----+---+ + + | | 1 | an stop | | | | 4 | data | | | | 5 | | | | | 0 | | | +----+---+ + + | | 1 | Quick Note | Stable in Adelfo MIRELES being administered | | | 4 | | | | | 5 | | | | | 7 | | | +----+---+ + + | | 1 | An Stop | Patient handed off to recovery nurse. | | | 0 | | | | | 1 | | | +----+---+ + + +------+ | Meds | +------+ + + + | Name | Total | + + + | fentaNYL | 100 mcg | + + + | midazolam | 2 mg | + + + | bupivacaine 0.5% + epi 1:200k | 15 mL | + + + | lidocaine 2% | 5 mL | + + + | propofol (DIPRIVAN) injection | 400 mg | | (bolus) (20 mL) | | + + + | lidocaine 1% | 50 mg | + + + | Phenylephrine 100mcg/mL SYRINGE | 300 mcg | + + + | dexamethasone | 10 mg | + + + | ondansetron | 4 mg | + + + | ceFAZolin (ANCEF, KEFZOL) 100 | 2 g | | mg/mL IV syringe 2 g | | + + + | succinylcholine | 100 mg | + + + | rocuronium | 50 mg | + + + | ketamine | 50 mg | + + + | magnesium sulfate | 2 g | + + + | albuterol MDI | 24 puff | + + + | EPINEPHrine | 0.085 mg | + + + | vasopressin | 12 Units | + + + | sugammadex (BRIDION) injection (2 | 200 mg | | mL vial) | | + + + | lactated ringers (LR) infusion | 1,800 mL | + + + + + | Name | + + | N2O Flow Rate (L/Min) | + + | O2 Flow Rate (L/Min) | + + | Insp O2 | + + | Exp SEV | + + | Exp VANNA | + + | Air Flow Rate (L/Min) | + + + + | No blood administrations on file. | + + +--------+ + + + | Type | Details | Placement | Removal | +--------+ + + + | Periph | 09/02/17; 1126; Right; Posterior | 09/02/17 1126 by | 09/02/17 1650 by | | eral | (dorsal); Forearm; | Nickolas Ray RN | Mary Guardado, | | IV | [id number] catheter system; | | RN | | | 18 gauge, 1 1/2 in length; | | | | | distraction, tolerated well, | | | | | appears comfortable; 09/02/17; | | | | | 1650 | | | +--------+ + + + | Read | 09/02/17; 1359; Left; arm; | 09/02/17 1359 by | 09/02/17 1650 by | | only - | 09/02/17; 1650 | Latoya Stearns RN | Mary Guardado, | | | | | RN | | Incisi | | | | | on | | | | +--------+ + + + | Airway | Placement Date: 09/02/17; | 09/02/17 140 by | 09/02/17 1446 by | | | Placement Time: 1403 (created via | Hansel Denny | Hansel Denny | | | procedure documentation); Airway | MD Radha | MD Radha | | | Grade: 1; Successful Technique: | | | | | video scope; Laryngoscope Blade | | | | | Size: 3; Attempts: 1; Airway | | | | | Type: endotracheal; Size: 7; | | | | | Trauma: none; Other Equipment: | | | | | stylette; Placement Check: | | | | | exhaled CO2 detection device, | | | | | bilateral chest rise, breath | | | | | sounds equal bilaterally; Removal | | | | | Date: 09/02/17; Removal Time: | | | | | 1446; Additional Comments: | | | | | Initially placed #5 LMA - pt | | | | | bronchospasm'd and failed to | | | | | improved with deepening of | | | | | anesthetic - moved to ETT. Easy | | | | | visualization with [place]. | | | | | Atraumatic airway manipulation. | | | +--------+ + + + documented in this encounter Social History + +-------+ +--------+------+ | Tobacco [...] | + +--------+ + + + | ANE NERVE BLOCK | Routin | 09/02/2017 | | Results for this | | CATHETER NOTE | e | 2:03 PM | | procedure are in the | | | | PDT | | results section. | + +--------+ + + + | ANE AIRWAY NOTE | Routin | 09/02/2017 | | Results for this | | | e | 2:00 PM | | procedure are in the | | | | PDT | | results section. | + +--------+ + + + documented in this encounter Results Anesthesia Perineural Note (09/02/2017 2:03 PM PDT) + + + | Narrative | Performed At | + + + | Hansel Garcia MD 09/02/2017 14:03 Perineural Procedure | | | Note Nerve block: interscalene-brachial plexus Laterality: left | | | Continuous block with catheter: No Provider requested procedure: | | | Luis Alfredo Indication: postoperative analgesia Preprocedure check: | | | patient identified, procedure and rescue equipment checked, | | | preevaluation including airway assessment complete, risks/benefits | | | discussed, consent obtained, timeout performed, reassessment prior | | | to procedure and monitors applied Patient position: supine | | | Preparation: chlorhexidine/isopropyl alcohol Introducer used: no | | | Local anesthetic infiltration volume in ml: 3 mL Technique: | | | ultrasound Radiology image stored in patient's chart: ultrasound | | | Needle: echogenic, stimulating and insulated Needle size: 21 g | | | Needle length: 4 in Medication administered through: needle and | | | incremental injection Negative findings: no blood aspirated and no | | | paresthesia Total volume of local anesthetic solution administered: | | | 20 mL Attempts: 1 Ease of procedure: easy Comments: Peripheral | | | nerve block offered at the request of the attending surgeon. | | | Patient ID and surgical laterality confirmed. Pre-procedure pause | | | completed. Patient placed on monitors with HR, BP, and SpO2 monitored | | | during procedure. Patient positioned and area over the neck and | | | shoulder prepped with Chloroprep and allowed to dry. Ultrasound used | | | to identify subclavian artery and then moved cephalad to the | | | interscalene brachial plexus, looking for the "stop sign" | | | appearance.Under direct needle visualization, local anesthetic was | | | injected around the plexus after confirming no intravascular | | | injection. Patient tolerated procedure well. US image printed | | | and placed in the patient's chart. Please see anesthesia record | | | or flowsheet for vital sign documentation and see anesthesia record | | | or MAR for all medication documentation. Performing provider: | | | HANSEL GARCIA Electronically Signed by: Hansel Michelle | | | MD Radha ESig date/time: 09/02/2017 | | | 14:03 | | + + + + + | Procedure Note | + + | Hansel Garcia MD - 09/02/2017 2:03 PM PDT Perineural Procedure NoteNerve | | block: interscalene-brachial plexusLaterality: leftContinuous block with catheter: | | NoProvider requested procedure: Dr. Alexanderication: postoperative | | analgesiaPreprocedure check: patient identified, procedure and rescue equipment checked, | | preevaluation including airway assessment complete, risks/benefits discussed, consent | | obtained, timeout performed, reassessment prior to procedure and monitors appliedPatient | | position: supinePreparation: chlorhexidine/isopropyl alcoholIntroducer used: noLocal | | anesthetic infiltration volume in ml: 3 mLTechnique: ultrasoundRadiology image stored in | | patient's chart: ultrasoundNeedle: echogenic, stimulating and insulatedNeedle size: 21 | | gNeedle length: 4 inMedication administered through: needle and incremental | | injectionNegative findings: no blood aspirated and no paresthesiaTotal volume of local | | anesthetic solution administered: 20 mLAttempts: 1Ease of procedure: easyComments: | | Peripheral nerve block offered at the request of the attending surgeon.Patient ID and | | surgical laterality confirmed. Pre-procedure pause completed. Patient placed on monitors | | with HR, BP, and SpO2 monitored during procedure. Patient positioned and area over the | | neck and shoulder prepped with Chloroprep and allowed to dry. Ultrasound used to | | identify subclavian artery and then moved cephalad to the interscalene brachial plexus, | | looking for the "stop sign" appearance.Under direct needle visualization, local | | anesthetic was injected around the plexus after confirming no intravascular injection. | | Patient tolerated procedure well.US image printed and placed in the patient's | | chart.Please see anesthesia record or flowsheet for vital sign documentation and see | | anesthesia record or MAR for all medication documentation.Performing provider: RADHA | | HANSEL Hackettectronically Signed by: Hansel Garcia MD ESig | | date/time: 09/02/2017 14:03 | | | |Patient ID and surgical laterality confirmed. Pre-procedure pause completed. Patient placed on monitors with HR, BP, and SpO2 monitored during procedure. Patient positioned and area o armando the neck and shoulder | |prepped with Chloroprep and allowed to dry. Ultrasound used to identify subclavian artery a nd then moved cephalad to the interscalene brachial plexus, looking for the "stop sign" appe arance.Under direct needle | |visualization, local anesthetic was injected around the plexus after confirming no intravas cular injection. | | | |Patient tolerated procedure well. | | | |US image printed and placed in the patient's chart. | | | |Please see anesthesia record or flowsheet for vital sign documentation and see anesthesia r ecord or MAR for all medication documentation. | | | | | |Performing provider: HANSEL GARCIA | | | | | | | |Electronically Signed by: MD Eliazar Dupree date/time: 09/02/2017 14:03 | + + Anesthesia Airway Note (09/02/2017 2:00 PM PDT) + + + | Narrative | Performed At | + + + | Hansel Garcia MD 09/02/2017 14:03 Anesthesia Airway | | | Placement Preprocedure check: patient identified, oxygen, airway | | | assessed, suction, airway equipment checked and patient reassessment | | | prior to induction Successful technique: videoscope Laryngoscope | | | blade size: 3 Airway grade: 1 (Full view of glottis) Other | | | equipment: stylette Attempts: 1 Airway type: endotracheal Size: 7 | | | Cuffed: cuffed Route, reference point: right side of mouth Tube | | | secured with: adhesive tape Trauma: none Tube placement | | | verification: bilateral chest rise, equal bilateral breath sounds | | | and carbon dioxide detection Performing provider: HANSEL GARCIA | | | KALLIE Comments: Initially placed #5 LMA - pt bronchospasm'd and | | | failed to improved with deepening of anesthetic - moved to ETT. Easy | | | visualization with [place]. Atraumatic airway manipulation. | | | Electronically Signed by: Hansel Garcia MD | | | ESig date/time: 09/02/2017 14:01 | | | | | + + + + + | Procedure Note | + + | Hansel Garcia MD - 09/02/2017 2:00 PM PDT Anesthesia Airway | | PlacementPreprocedure check: patient identified, oxygen, airway assessed, suction, | | airway equipment checked and patient reassessment prior to inductionSuccessful | | technique: videoscopeLaryngoscope blade size: 3 Airway grade: 1 (Full view of | | glottis)Other equipment: styletteAttempts: 1Airway type: endotrachealSize: 7Cuffed: | | cuffedRoute, reference point: right side of mouthTube secured with: adhesive tapeTrauma: | | noneTube placement verification: bilateral chest rise, equal bilateral breath sounds | | and carbon dioxide detectionPerforming provider: HANSEL GARCIAComments: | | Initially placed #5 LMA - pt bronchospasm'd and failed to improved with deepening of | | anesthetic - moved to ETT. Easy visualization with [place].Atraumatic airway | | manipulation.Electronically Signed by: Hansel Garcia MD | | ESig date/time: 09/02/2017 14:01 | |Tube secured with: adhesive tape | |Trauma: none | |Tube placement verification: bilateral chest rise, equal bilateral breath sounds and carbon dioxide detection | |Performing provider: HANSEL GARCIA | | | |Comments: Initially placed #5 LMA - pt bronchospasm'd and failed to improved with deepening of anesthetic - moved to ETT. Easy visualization with [place]. | | | |Atraumatic airway manipulation. | | | | | |Electronically Signed by: Hansel Garcia MD ESig date/time: 14:01 | | | + + documented in this encounter Visit Diagnoses Not on filedocumented in this encounter Administered Medications + +--------+ +---------+------+------+ | Medication Order | MAR | Action | Dose | Rate | Site | | | Action | Date | | | | + +--------+ +---------+------+------+ | albuterol 90 mcg/puff inhaler | Given | 09/03/19 | 8 puffs | | | | Inhalation, PRN, Shortness of | | 18 2:15 | | | | | Breath, Starting 09/02/17 at | | PM PDT | | | | | 1319, Anesthesia Intra-op | | | | | | + +--------+ +---------+------+------+ +-------+ +---------+---+---+ | Given | 09/03/19 | 8 puffs | | | | | 18 1:21 | | | | | | PM PDT | | | | +-------+ +---------+---+---+ | Given | 09/03/19 | 8 puffs | | | | | 18 1:19 | | | | | | PM PDT | | | | +-------+ +---------+---+---+ +---+---+ | | | +---+---+ + +-------+ +--------+---+---+ | bupivacaine 0.5%-EPINEPHrine | Given | 09/03/19 | 15 mLs | | | | 1:200,000 (PF) injection | | 18 12:58 | | | | | PERINEURAL, PRN, Other, Starting | | PM PDT | | | | | 09/02/17 at 1258, Anesthesia | | | | | | | Intra-op | | | | | | + +-------+ +--------+---+---+ +---+---+ | | | +---+---+ + +-------+ +-----+---+---+ | ceFAZolin (ANCEF, KEFZOL) 100 | Given | 09/03/19 | 2 g | | | | mg/mL IV syringe 2 g 2 g, | | 18 1:26 | | | | | Intravenous, Administer over 30 | | PM PDT | | | | | Minutes, Prior to Incision, | | | | | | | Starting 09/02/17 at 0302, For | | | | | | | 1 dose, administer within 1 hour | | | | | | | of incision, Pre-op, | | | | | | | Indications: Surgical Prophylaxis | | | | | | + +-------+ +-----+---+---+ +---+---+ | | | +---+---+ + +-------+ +-------+---+---+ | dexamethasone (PF) 10 mg/mL | Given | 09/03/19 | 10 mg | | | | injection Intravenous, PRN, | | 18 1:31 | | | | | Starting 09/02/17 at 1331, | | PM PDT | | | | | Anesthesia Intra-op | | | | | | + +-------+ +-------+---+---+ +---+---+ | | | +---+---+ + +-------+ +---------+---+---+ | EPINEPHrine 1 mg/mL injection | Given | 09/03/19 | 0.01 mg | | | | Intravenous, PRN, Anaphylaxis, | | 18 2:17 | | | | | Starting [facility] 09/02/17 at 1345, | | PM PDT | | | | | Anesthesia Intra-op | | | | | | + +-------+ +---------+---+---+ +-------+ + +---+---+ | Given | 09/03/19 | 0.01 mg | | | | | 18 2:00 | | | | | | PM PDT | | | | +-------+ + +---+---+ | Given | 09/03/19 | 0.015 mg | | | | | 18 1:47 | | | | | | PM PDT | | | | +-------+ + +---+---+ +---+---+ | | | +---+---+ + +-------+ +--------+---+---+ | fentaNYL (PF) injection | Given | 09/03/19 | 50 mcg | | | | Intravenous, PRN, Pain, Starting | | 18 12:50 | | | | | 09/02/17 at 1249, Anesthesia | | PM PDT | | | | | Intra-op | | | | | | + +-------+ +--------+---+---+ +-------+ +--------+---+---+ | Given | 09/03/19 | 50 mcg | | | | | 18 12:49 | | | | | | PM PDT | | | | +-------+ +--------+---+---+ +---+---+ | | | +---+---+ + +-------+ +-------+---+---+ | ketamine 50 mg/mL injection | Given | 09/03/19 | 50 mg | | | | PRN, Starting 09/02/17 at | | 18 1:31 | | | | | 1331, Anesthesia Intra-op | | PM PDT | | | | + +-------+ +-------+---+---+ +---+---+ | | | +---+---+ + +---------+ +---+---+---+ | lactated ringers (LR) infusion | New Bag | 09/03/19 | | | | | at 10-100 mL/hr, Intravenous, | | 18 1:35 | | | | | CONTINUOUS, Starting 09/02/17 | | PM PDT | | | [...] PDT | | | | +---------+ +--------+-------+---+ +---+---+ | | | +---+---+ + +-------+ +-------+---+---+ | lidocaine (PF) 1% injection | Given | 09/03/19 | 50 mg | | | | Intravenous, PRN, Starting Thu | | 18 1:06 | | | | | 09/02/17 at 1306, Anesthesia | | PM PDT | | | | | Intra-op | | | | | | + +-------+ +-------+---+---+ +---+---+ | | | +---+---+ + +-------+ +-------+---+---+ | lidocaine (PF) 2% injection | Given | 09/03/19 | 5 mLs | | | | PRN, Starting Thu09/02/17 at | | 18 12:58 | | | | | 1258, Anesthesia Intra-op | | PM PDT | | | | + +-------+ +-------+---+---+ +---+---+ | | | +---+---+ + +-------+ +-----+---+---+ | magnesium sulfate 500 mg/mL | Given | 09/03/19 | 1 g | | | | injection Intravenous, PRN, | | 18 1:22 | | | | | Starting Thu09/02/17 at 1318, | | PM PDT | | | | | Anesthesia Intra-op | | | | | | + +-------+ +-----+---+---+ +-------+ +-----+---+---+ | Given | 09/03/19 | 1 g | | | | | 18 1:18 | | | | | | PM PDT | | | | +-------+ +-----+---+---+ +---+---+ | | | +---+---+ + +-------+ +------+---+---+ | midazolam (VERSED) 1 mg/mL | Given | 09/03/19 | 2 mg | | | | injection Intravenous, PRN, | | 18 12:49 | | | | | Anxiety, Starting Thu09/02/17 at | | PM PDT | | | | | 1249, Anesthesia Intra-op | | | | | | + +-------+ +------+---+---+ +---+---+ | | | +---+---+ + +-------+ +------+---+---+ | ondansetron (ZOFRAN) injection | Given | 09/03/19 | 4 mg | | | | Intravenous, PRN, Nausea, | | 18 1:31 | | | | | Vomiting, Starting 09/02/17 at | | PM PDT | | | | | 1331, Anesthesia Intra-op | | | | | | + +-------+ +------+---+---+ +---+---+ | | | +---+---+ + +-------+ +---------+---+---+ | phenylephrine (PERRY-SYNEPHRINE) | Given | 09/03/19 | 150 mcg | | | | 100 mcg/mL injection | | 18 1:42 | | | | | Intravenous, PRN, Starting Wed | | PM PDT | | | | | 09/02/17 at 1336, Anesthesia | | | | | | | Intra-op | | | | | | + +-------+ +---------+---+---+ +-------+ +---------+---+---+ | Given | 09/03/19 | 150 mcg | | | | | 18 1:36 | | | | | | PM PDT | | | | +-------+ +---------+---+---+ +---+---+ | | | +---+---+ + +-------+ +--------+---+---+ | propofol (DIPRIVAN) injection | Given | 09/03/19 | 100 mg | | | | Intravenous, PRN, Starting Wed | | 18 1:17 | | | | | 09/02/17 at 1306, Anesthesia | | PM PDT | | | | | Intra-op | | | | | | + +-------+ +--------+---+---+ +-------+ +--------+---+---+ | Given | 09/03/19 | 100 mg | | | | | 18 1:09 | | | | | | PM PDT | | | | +-------+ +--------+---+---+ | Given | 09/03/19 | 200 mg | | | | | 18 1:06 | | | | | | PM PDT | | | | +-------+ +--------+---+---+ +---+---+ | | | +---+---+ + +-------+ +-------+---+---+ | rocuronium (ZEMURON) injection | Given | 09/03/19 | 50 mg | | | | Intravenous, PRN, Ventilator | | 18 1:21 | | | | | Dyssynchrony, Starting Wed | | PM PDT | | | | | 09/02/17 at 1321, Anesthesia | | | | | | | Intra-op | | | | | | + +-------+ +-------+---+---+ +---+---+ | | | +---+---+ + +-------+ +--------+---+---+ | succinylcholine (ANECTINE) | Given | 09/03/19 | 100 mg | | | | injection Intravenous, PRN, | | 18 1:18 | | | | | Starting 09/02/17 at 1318, | | PM PDT | | | | | Anesthesia Intra-op | | | | | | + +-------+ +--------+---+---+ +---+---+ | | | +---+---+ + +-------+ +--------+---+---+ | sugammadex (BRIDION) injection | Given | 09/03/19 | 200 mg | | | | PRN, Starting Thu09/02/17 at | | 18 2:28 | | | | | 1428, Anesthesia Intra-op | | PM PDT | | | | + +-------+ +--------+---+---+ +---+---+ | | | +---+---+ + +-------+ +---------+---+---+ | vasopressin (PITRESSIN) | Given | 09/03/19 | 2 Units | | | | injection Intravenous, PRN, | | 18 2:20 | | | | | Starting Thu09/02/17 at 1349, | | PM PDT | | | | | Anesthesia Intra-op | | | | | | + +-------+ +---------+---+---+ +-------+ +---------+---+---+ | Given | 09/03/19 | 2 Units | | | | | 18 2:13 | | | | | | PM PDT | | | | +-------+ +---------+---+---+ | Given | 09/03/19 | 2 Units | | | | | 18 2:10 | | | | | | PM PDT | | | | +-------+ +---------+---+---+ +---+---+ | | | +---+---+ documented in this encounter
--- OUTSIDE RECORDS SUMMARY | ~2019-07-05 | XMS | Encounter Summary ---
Demographics + + + | Address | [address] | | | [place] [address] | + + + | Home Phone | | + + + | Preferred Language | Unknown | + + + | Marital Status | | + + + | Sikhism Affiliation | Unknown | + + + | Race | Unknown | + + + | Ethnic Group | Unknown | + + + Author + + + | Author | [facility] | | | and [place] | + + + | Organization | [facility] | | | [...] Team Providers + +------+ + | Care Second [facility]p [facility]r Assessment Name | Role | Phone | + [...] [place] | | | | | | [phone] | (Fax) | | | | | [phone] | | | +--------+ + + + [...] MRI LUMBAR SPINE WO | Routin | 05/29/2015 | | Results for this | | CONTRAST | e | 8:37 AM | | procedure are in the | | | | PST | | results section. | + +--------+ + + + documented in this encounter Results MRI Lumbar Spine wo Contrast (05/29/2015 8:37 AM PST) + + | Specimen | [...]
--- OUTSIDE RECORDS SUMMARY | ~2019-07-05 | XMS | Encounter Summary ---
Demographics + + + | Address | [address] | | | [place] [address] | + + + | Home Phone | | + + + | Preferred Language | Unknown | + + + | Marital Status | | + + + | Samaritan Affiliation | Unknown | + + + [...] Team Providers + +------+ + | Care Curator [employer] Name | Role | Phone | + +------+ + | Kanika Dominguez PA-C | PCP | | + +------+ + Reason for Visit + + + | Reason | Comments | + + + | Follow-up | Discuss surgery | + + + Service/Procedure (Routine) +--------+ + + + + + | Status | Reason | Specialty | Diagnoses / | Referred By | Referred To | | | | | Procedures | Contact | Contact | +--------+ + + + + + | Closed | Continuity | Neurosurgery | Diagnoses | Damien, | Damien, | | | of Care | | | Uday Umanzor, | Uday Umanzor DO | | | | | Spondylolist | [address] | [address] | | | | | hesis, | [address] | | | | | lumbar | [place] | | | | | region | [address] | [address] Phone: | | | | | Spinal | Phone: | [phone] | | | | | stenosis, | [phone] | Fax: | | | | | lumbar | Fax: | [phone] | | | | | region | [phone] | | | | | | Procedures | | | | | | | [place] OFFICE | | | | | | | OUTPATIENT | | | | | | | VISIT 25 | | | | | | | MINUTES | | | | | | | Office visit | | | | | | | | | | +--------+ + + + + + Encounter Details +--------+---------+ + + + | Date | Type | Department | Care Team | Description | +--------+---------+ + + + | 10/21/ | Office | [facility] | Uday Quezada, | Spondylolisthesis, | | 2017 | Visit | NEUROSURGERY [address] | DO [address] | lumbar region | | | | [address] [place], [place] | (Primary Dx); Lumbar | | | | [place] | [address] | stenosis; Lumbar | | | | [address] | | radicular pain; | | | | [phone] | | Chronic midline low | | | | | | back pain with | | | | | | left-sided sciatica | +--------+---------+ + + + Social History [...] + + + | Blood Pressure | 135/87 | 10/21/2016 9:37 AM | | | | | PDT | | + + + + + | Pulse | 87 | 10/21/2016 9:37 AM | | | | | PDT [...] + | Weight | 106.6 kg (235 lb 1.6 | 10/21/2016 9:37 AM | | | | oz) | PDT | | + + + + + | Height | 180.3 cm (5' 11") | 10/21/2016 9:37 AM | | | | | PDT | | + + + + + | Body Mass Index | 32.79 | 10/21/2016 9:37 AM | | | | | PDT | | + + + + + documented in this encounter Patient Instructions Patient Instructions Uday Quezada DO - 10/21/2016 10:04 AM PDTPlease follow-up with me as needed. Back Care Tips Caring for your back These are things you can do to prevent a recurrence of acute back pain and to reduce sympto ms from chronic back pain: Maintain a healthy weight. If you are overweight, losing weight will help most types of back pain. Exercise is an important part of recovery from most types of back pain. The muscles behi nd and in front of the spine support the back. This means strengthening both the back muscle s and the abdominal muscles will provide better support for your spine. Swimming and brisk walking are good overall exercises to improve your fitness level. Practice safe lifting methods (below). Practice good posture when sitting, standing and walking. Avoid prolonged sitting. This puts more stress on the lower back than standing or walking. Wear quality shoes with sufficient arch support. Foot and ankle alignment can affect juliette k symptoms. Women should avoid wearing high heels. Therapeutic massage can help relax the back muscles without stretching them. During the first 24 to 72 hours after an acute injury or flare-up of chronic back pain, apply an ice pack to the painful area for 20 minutes and then remove it for 20 minutes, over a period of 60 to 90 minutes, or several times a day. As a safety precaution, do not use a heating pad at bedtime. Sleeping on a heating pad can lead to skin peace or tissue damage. You can alternate ice and heat therapies. Medications Talk to your healthcare provider before using medicines, especially if you have other medic al problems or are taking other medicines. You may use acetaminophen or ibuprofen to control pain, unless your healthcare provider prescribed other pain medicine. If you have chronic conditions like diabetes, liver or kidne y disease, stomach ulcers, or gastrointestinal bleeding, or are taking blood thinners, talk with your healthcare provider before taking any medicines. Be careful if you are given prescription pain medicines, narcotics, or medicine for musc le spasm. They can cause drowsiness, affect your coordination, reflexes, and judgment. Do no t drive or operate heavy machinery while taking these types of medicines. Take prescription pain medicine only as prescribed by your healthcare provider. Lumbar stretch Here is a simple stretching exercise that will help relax muscle spasm and keep your back m ore limber. If exercise makes your back pain worse, don t do it. Lie on your back with your knees bent and both feet on the ground. Slowly raise your left knee to your chest as you flatten your lower back against the bright or. Hold for 5 seconds. Relax and repeat the exercise with your right knee. Do 10 of these exercises for each leg. Safe lifting method Don t bend over at the waist to lift an object off the floor. Instead, bend your kne es and hips in a squat. Keep your back and head upright Hold the object close to your body, directly in front of you. Straighten your legs to lift the object. Lower the object to the floor in the reverse fashion. If you must slide something across the floor, push it. Posture tips Sitting Sit in chairs with straight backs or low-back support. Keep your knees lower than your hips , with your feet flat on the floor. When driving, sit up straight. Adjust the seat forward so you are not leaning toward the Avuxi wheel. A small pillow or rolled towel behind your lower back may help if you are dr iving long distances. Standing When standing for long periods, shift most of your weight to one leg at a time. Alternate l egs every few minutes. Sleeping The best way to sleep is on your side with your knees bent. Put a low pillow under your hea d to support your neck in a neutral spine position. Avoid thick pillows that bend your neck to one side. Put a pillow between your legs to further relax your lower back. If you sleep o n your back, put pillows under your knees to support your legs in a slightly flexed position . Use a firm mattress. If your mattress sags, replace it, or use a 1/2-inch plywood board un shravan the mattress to add support. Follow-up care Follow up with yourhealthcare provider, or as advised. If X-rays, a CT scan or an MRI scan were taken, they will be reviewed by a radiologist. You will be notified of any new findings that may affect your care. Call 911 Seek emergency medical care if any of the following occur: Trouble breathing Confusion Very drowsy Fainting or loss of consciousness Rapid or very slow heart rate Loss of bowel or bladder control When to seek medical care Call your healthcare provider if any of the following occur: Pain becomes worse or spreads to your arms or legs Weakness or numbness in one or both arms or legs Numbness in the groin area Date Last Reviewed: 11/21/201519992082-2081 [employer]. [address] [place] [address], [place] [address]. All righ ts reserved. This information is not intended as a substitute for professional medical care. Always follow your healthcare professional's instructions. documented in this encounter Progress Notes Uday Quezada DO - 10/21/2016 10:04 AM PDTFormatting of this note might be different fro m the original. Uday Quezada DO [address] [facility] [place], [address] [place] [address] FAX: NEUROSURGERY HISTORY AND PHYSICAL EXAMINATION CHIEF COMPLAINT: Chief Complaint Patient presents with Follow-up Discuss surgery HISTORY OF PRESENT ILLNESS: The patient is a 51 y.o. male with the complaint of back pain symptoms that began around 2008. Pain came on after doing long extended sessions of [employer] dancing. He also participated in [employer] for many years. The patient describes low back pain t hat radiates into his left buttock. The symptoms [...] Tylenol 3, and tramadol.. These nicole ures are not adequately controlling his pain. With these medications and activity modificat ions, his pain is still a 7 out of 10. He does not want to take a higher dose narcotics. Haris hewitt has done this in the past and they cause too much sedation and he is unable to function. Since his last visit, he had a second opinion in [place]. There they recommended a 1-level fusion and an adjacent segment artifical disc replacement. He presents today to see if that would be an option for him here. His pain is overall unchanged. PAST MEDICAL HISTORY: Past Medical History Diagnosis Date ED (erectile dysfunction) BPH (benign prostatic hyperplasia) Right knee sprain 12/05/1992 Spondylosis 03/20/2011 Left hip pain Benign essential hypertension Spinal stenosis of lumbar region Male hypogonadism Lumbosacral radiculopathy History of tobacco use Chronic low back pain 07/25/2015 DDD (degenerative disc disease), lumbar 07/25/2015 Spinal stenosis of lumbar region 07/25/2015 Facet arthritis of lumbar region (HCC) 07/25/2015 Left lumbar radiculopathy 10/30/2015 PAST SURGICAL HISTORY: Past Surgical History Procedure Laterality Date Facet neurotomy [place] Injection foramen epidural l/s Injection lumbar/sacral CURRENT MEDICATIONS: Current Outpatient Prescriptions Medication Sig Dispense Refill HYDROcodone-acetaminophen (NORCO) 10-325 mg per tablet take 1 tablet by mouth four time s a day if needed not more than 5... (REFER TO PRESCRIPTION NOTES). 0 lisinopril (PRINIVIL,ZESTRIL) 40 MG tablet Take 40 [...] hr tablet 0 No current facility-administered medications for this visit. [...] RELATION Hypertension Other UNKNOWN RELATION Arthritis Mother REVIEW OF SYSTEMS GENERALLY: No fever, no night sweats, no anemia, no fatigue, no recent profound weight santoyo ges. EYES: No eye problems, no use of corrective lenses, no eye injury, no double vision, no bli ndness. EARS, NOSE, AND THROAT: No changes in taste or smell, no hearing difficulty, no ringing in the ears, no ear drainage, no dizziness, no voice changes, no difficulty swallowing, no sign ificant snoring, no sleep apnea, no sinus problems, no major dental work. NEUROLOGICALLY: Please see the review of systems discussed above in the history of present illness. In addition, the patient has numbness/pain of arms, awake with numbness/pain, weakn ess muscle aching, pain in back. PSYCHIATRIC: No depression, no sleep disorders, no anxiety, no bipolar disorder, no psychot ic episodes. CARDIOVASCULAR: No heart attacks, no heart murmur, no heart fluttering, no chest pain, no a nkle swelling. LUNG DISEASE: No shortness of breath, no cough, no tuberculosis, no bloody cough, no asthma , no emphysema/COPD. GASTROINTESTINAL: No bowel disease, no nausea or vomiting, no rectal bleeding, no constipat ion, no stool incontinence, no liver disease, no gallbladder disease, no abdominal pain, no ulcers. KIDNEY DISEASE: No urinary frequency, no painful or difficult urination, no incontinence. ENDOCRINE: No diabetes, no thyroid disease, no osteopenia or osteoporosis, no breast draina ge. SKIN: No breast lumps, no skin changes, no rashes, no itches. HEMATOLOGIC/LYMPHATIC: No enlarged lymph nodes, no easy or unusual bleeding, no personal hi story of cancer. RHEUMATOLOGIC: No joint arthritis, no rheumatoid arthritis. PHYSICAL EXAMINATION: Blood pressure 135/87, pulse 87, height 1.803 m (5' 11"), weight 106.641 kg (235 lb 1.6 oz) . Body mass index is 32.8 kg/(m^2). GENERAL: Gianfranco Rodriguez is in no acute distress with unlabored respirations. The patient does not appear uncomfortable throughout the exam [...] has no apparent deficits with short or prison memory. CRANIAL NERVES: II: Acuity is intact. Raiza are full to confrontation. III, IV, : [...] Intrinsics 5 5 Ulnar Intrinsics 5 5 Reformatory Attendant Strength 5 5 Hip Flexion 5 5 Hip Extension 5 5 Knee Flexion 5 5 Knee Extension 5 5 Dorsiflexion 5 5 Extensor Hallicus Longus 5 5 Plantarflexion 5 5 SENSORY EXAM: Sensory exam shows left L5-type dysesthesia. REFLEXES: (2 OR 2+ IS NORMAL) REFLEX: [...] 2015 shows lumbar spondylolisthesis at L3-L4 and L4-L5. There is mild to moderate spinal stenosis at these 2 levels. There is significant facet hypertrophy with fac et effusions. There is also moderately significant L4-L5 right foraminal stenosis. Lumbar x-rays show spondylolisthesis at L3-L4 and L4-L5 on flexion extension views. There is mild rightward lumbar curvature. ASSESSMENT: NEUROSURGICAL DIAGNOSES: Encounter Diagnoses Name Primary? Spondylolisthesis, lumbar region Yes Lumbar stenosis Lumbar radicular pain Chronic midline low back pain with left-sided sciatica GENERAL DIAGNOSES: Past Medical History Diagnosis Date ED (erectile dysfunction) BPH (benign prostatic hyperplasia) Right knee sprain 12/05/1992 Spondylosis 03/20/2011 Left hip pain Benign essential hypertension Spinal stenosis of lumbar region Male hypogonadism Lumbosacral radiculopathy History of tobacco use Chronic low back pain 07/25/2015 DDD (degenerative disc disease), lumbar 07/25/2015 Spinal stenosis of lumbar region 07/25/2015 Facet arthritis of lumbar region (HCC) 07/25/2015 Left lumbar radiculopathy 10/30/2015 PLAN: Gianfranco Rodriguez presented today, and it was a pleasure seeing this patient and assessing h is neurologic problems. The patient has spondylolisthesis and stenosis L3-4 and L4-5. The patient has failed conse rvative care after Several years. I had a lengthy discussion with the patient about his options for care including surgical a nd non-surgical options. In discussing the surgical options, he would like to proceed with the recommendation made i n [place] that he undergo ALIF at one of the levels and disc replacement at the other adjace nt level. This is not an approved indication for artifical disc replacement in the [facility]. This was discussed with the patient today. He feels strongly that this is the best kalyn miles for him and would like to proceed with his surgery in [facility]. He asked if I would wri te a letter of support if needed. I said I would do that. He will provide the office notes f [facility] if he decides a letter from me would be helpful. He will follow-up with me as needed. ELECTRONICALLY SIGNED BY: Uday Quezada DO, 10/21/2016 10:04 documented in this en counter Plan of Treatment Not on filedocumented as of this encounter Visit Diagnoses + + | Diagnosis | + + | Spondylolisthesis, lumbar region - Primary | + + | Lumbar stenosis Spinal stenosis, lumbar region, without neurogenic claudication | + + | Lumbar radicular pain Thoracic or lumbosacral neuritis or radiculitis, unspecified | + + | Chronic midline low back pain with left-sided sciatica | + + documented in this encounter
--- OUTSIDE RECORDS SUMMARY | ~2019-07-05 | XMS | Encounter Summary ---
Demographics + + + | Address | [address] | | | [place] [address] | + + + | Home Phone [...] Team Providers + +------+ + | Care Repairer S[employer] And Door Name | Role | Phone | + +------+ + | Kanika Dominguez PA-C | PCP | | + +------+ + Reason for Visit + + + | Reason | Comments | + + + | CPAP Follow Up | | + + + Evaluate & Treat [...] | | Sleep | sleep apnea | [facility] [address] | [address] | | | | Medicine / | (adult) | [address] | [address] [place] | | | | Sleep | (pediatric) | [place] | [place], [place] | | | | Medicine | [facility] | [address] | [address] Phone: | | | | | RESULTS/YH | [place], | [phone] | | | | | AUTH/AO | [place] | Fax: | | | | | Procedures | [id number] | [phone] | | | | | OFFICE VISIT | Phone: | | | | | | EXTENDED | [phone] | | | | | | | Fax: | | | | | | | [phone] | | +--------+--------+ + + + + Encounter Details +--------+---------+ + + + | Date | Type | Department | Care Team | Description | +--------+---------+ + + + | 03/22/ | Office | [facility] | Basilia Baker MD | SARA (obstructive | | 2018 | Visit | SLEEP DISORDER [address] | [address] | sleep apnea) | | | | [address] [place] | [address] | (Primary Dx) | | | | [place] [address] | [address] | | | | | [phone] | | | +--------+---------+ + + + [...] + + + + | Height | - | - | | + + + + + | Body Mass Index | 30.96 | 02/17/2018 8:01 AM | | | | | PDT | | + + + + + documented in this encounter Patient Instructions Patient Instructions Basilia Baker MD - 03/22/2018 11:30 AM PDT- We will send a prescripti on for CPAP machine to your home care company. - Please start using your CPAP as directed. - Follow up with MONICA Orona within 1-2 weeks - Follow up with [place] Flores PA-C in 4-6 weeks, - Insurance compliance criteria: Once you received your machine, you have 90 days in which you must use your machine for 30 consecutive days and for 70% of those 30 days you must use your machine for >= 4 hours. P M PDT documented in this encounter Progress Notes Basilia Baker MD - 03/22/2018 11:30 AM PDT The patient comes in to discuss sleep study results. My interpretation of the patient's s leep study, which I have reviewed with the patient, is as follows: Unattended, Multiparameter, Sleep Apnea Test for Gianfranco Rodriguez performed on February. Identifying Information: Gianfranco Rodriguez is a 52 y.o. male who is referred for unattended, multi-parameter, sleep apnea test because of probable Obstructive Sleep Apnea. He has a his tory of hypertension, chronic low back pain status post lumbar surgery in December 2017, status post shoulder surgery, hypogonadism, and obesitypresenting for evaluation of obstructive s leep apnea. BMI: 32.5 Technical Information: The study was performed on March 02, 2018 using the [employer] equipment with [employer] Version 9 Software. The study was hand scored and hand julio zed. The following physiologic parameters were monitored: snoring, body position, oxygen sat uration, heart rate, nasal airflow (PTAF), oral airflow (thermister) and thoracic and abdomi nal effort (RIP belts). EEG was not monitored and thus sleep staging was not performed. A sl eep efficiency of 100% was assumed for the purposes of calculating indices; this assumption can result in a significant underestimation of disease severity. Because EEG was not monitor ed, Respiratory Effort Related Arousals could not be enumerated; this can also result in und erestimation of disease severity. The sensitivity for Obstructive Sleep Apnea of this type o f study is high but the specificity is low. Definitions (The AASM Manual for the Scoring of Sleep and Associated Events, Version 2.3; 2 016): Apnea: There is a drop in the peak signal excursion by 90% or greater of pre-reina nt baseline using an oronasal thermal sensor, or an alternative apnea sensor and the duratio n of the 90% or greater drop in sensor signal is greater than or equal to 10 seconds. Obstructive Apnea: Event associated with continued or increased inspi ratory effort throughout the entire period of absent airflow. Central Apnea: Event associated with absent inspiratory effort throug hout the entire period of absent airflow. Because EEG is not monitored, Central Apneas canno t be scored with any degree of reliability on this type of sleep study. Mixed Apnea: Event associated with absent inspiratory effort in the i nitial portion of the event followed by resumption of inspiratory effort during the second p ortion of the event. Because EEG is not monitored, mixed apneas are not reliably scored on t his type of study. Hypopnea: The peak signal excursions drop by 30% or more of pre-event baseline u sing nasal pressure (diagnostic study), PAP device flow (titration study), or an alternative hypopnea sensor (diagnostic study). The duration of the 30% or greater drop in signal excur lamine must last for 10 seconds or longer. The event is associated with a 3% or greater oxygen desaturation from pre-event baseline or the event is associated with an arousal. Respiratory Event Related Arousal: Because EEG is not recorded, Respiratory Even t Related Arousal's cannot be enumerated. The Respiratory Event Index (ANABELLA) is the term used to represent the frequency of apneas and hypopneas derived from Home Sleep Apnea Testing(HSAT). It is a surrogate for AHI. Results: Data collection commenced at 23:08 on March 02, 2018 and data collection term inated at 6:35 on March 03, 2018. During the 447 minutes of index study time there were 8 obstructive apneas, 0 central apneas, 0 mixed apneas and 288 hypopneas. The ANABELLA was 39.7 w hich is severely elevated. Relative time in supine position was 66.1%. The events were wor sened in the supine position with ANABELLA of 54.2. Non-supine ANABELLA was 11.5. Mean oxygen oxygen saturation was 91%, jose m saturation was 81%, and patient spent 29.2% of time( 130.4 minutes) below 90%. 3 %Oxygen desaturation index was 39.9 and was severely elev ated. Average heart rate was 70 BPM. Interpretation: This home sleep apnea testing (HSAT) showed sleep apnea which was obstructi ve in nature, and it was severe in frequency of events, and severe in frequency of desaturat ions. Sleep apnea was worsened in the supine position. Jose M saturation was 81%, and patie nt spent 130.4 minutes of time below 90%. The study was technically an adequate study. Recommendations: 1. A trial of auto-CPAP at 5-20 cm H2O. 2. Weight management. Today, I discussed the above results in detail with patient and his . he is interested in trial of CPAP. Insurance compliance criteria was discussed. Vitals: 03/22/18 1130 BP: 120/80 Pulse: 85 Resp: 16 PainSc: 0 - No pain Plan: Start auto CPAP at 5-15 cm H2O with patient's preference mask. Follow-up with MONICA Lyle in 1-2 weeks after starting Pap therapy. Follow-up with Lance Flores PA-C afterwards. I spent 15 minutes face to face with the patient, with over 50% spent in counseling and/or coordination of care regarding sleep apnea. documented in this enco unter Plan of Treatment Not on filedocumented as of this encounter Visit Diagnoses + + | Diagnosis | + + | SARA (obstructive sleep apnea) - Primary Obstructive sleep apnea (adult) (pediatric) | + + documented in this encounter"
--- OUTSIDE RECORDS SUMMARY | ~2019-07-05 | XMS | Encounter Summary ---
Demographics + + + | Address | [address] | | | [place] [address] | + + + | Home Phone | | + + + | Preferred Language | Unknown | + + + | Marital Status | | + + + | Druze Affiliation | Unknown | + + + | Race | Unknown | + + + | Ethnic Group | Unknown | + + + Author + + + | Author | [facility] | | | and [place] | + + + | Organization | [facility] | | [...] Team Providers + +------+ + | Care Correctional Therapy Director Name | Role | Phone | + [...] [place] | | | | | | [phone] | (Fax) | | | | | [phone] | | | +--------+ + + + [...]
--- OUTSIDE RECORDS SUMMARY | ~2019-07-05 | XMS | Encounter Summary ---
Demographics + + + | Address | [address] | | | [place] [address] | + + + | Home Phone | | + + + | Preferred Language | Unknown | + + + | Marital Status | | + + + | Zoroastrian Affiliation | Unknown | + + + | Race | Unknown | + + + | Ethnic Group | Unknown | + + + Author + + + | Author | [facility] | | | and [place] | + + + | Organization | [facility] | | | [...] Team Providers + +------+ + | Care Mail Weigher Name | Role | Phone | + +------+ + | Kanika Dominguez PA-C | PCP | | + +------+ + Reason for Visit + + + | Reason | Comments | + + + | Follow-up | Discuss surgery | + + + Encounter Details +--------+---------+ + + + | Date | Type | Department | Care Team | Description | +--------+---------+ + + + | 10/01/ | Office | [facility] | Uday Quezada, | Spondylolisthesis, | | 2016 | Visit | NEUROSURGERY [address] | DO [address] | lumbar region | | | | [address] | [address] [place], [place] | (Primary Dx); Lumbar | | | | [place], [place] | [address] | stenosis; Lumbar | | | | [address] | | radicular pain; | | | | [phone] | | Chronic low back | | | | | | pain with left-sided | | | | | | sciatica, | | | | | | unspecified back | | | | | | pain laterality | +--------+---------+ + + + Social History [...] + + + | Blood Pressure | 121/79 | 10/02/2015 8:53 AM | | | | | PDT | | + + + + + | Pulse | 96 | 10/02/2015 8:53 AM | | | | | PDT | | + + + + + | Temperature | - | - | | + + + + + | Respiratory Rate | 14 | 10/02/2015 8:53 AM | | | | | PDT | | + + + + + | Oxygen Saturation | - | - | | + + + + + | Inhaled Oxygen | - | - | | | Concentration | | | | + + + + + | Weight | 99.8 kg (220 lb) | 10/02/2015 8:53 AM | | | | | PDT | | + + + + + | Height | 180.3 cm (5' 11") | 10/02/2015 8:53 AM | | | | | PDT | | + + + + + | Body Mass Index | 30.68 | 10/02/2015 8:53 AM | | | | | PDT | | + + + + + documented in this encounter Patient Instructions Patient Instructions Uday Quezada DO - 10/02/2015 9:29 AM PDT.Please follow-up with [facility] primary care physician for preoperative clearance. Please present for surgery when scheduled. documented in this encounter Progress Notes Uday Quezada DO - 10/02/2015 9:30 AM PDTFormatting of this note might be different fro m the original. Uday Quezada, DO [address] [facility], [address] [place], [place] [address] FAX: NEUROSURGERY HISTORY AND PHYSICAL EXAMINATION CHIEF COMPLAINT: Chief Complaint Patient presents with Follow-up Discuss surgery HISTORY OF PRESENT ILLNESS: The patient is a 49 y.o. male with the complaint of back pain symptoms that began around 2008. Pain came on after doing long extended sessions of [employer] dancing. He also participated in [employer] for many years. The patient describes low [...] unable to function. Since his last visit, his symptoms are unchanged. He presents to discuss surgical options. PAST MEDICAL HISTORY: Past Medical History Diagnosis Date ED (erectile dysfunction) BPH (benign prostatic hyperplasia) Right knee sprain 12/05/1992 Spondylosis 03/20/2011 Left hip pain Benign essential hypertension Spinal stenosis of lumbar region Male hypogonadism Lumbosacral radiculopathy History of tobacco use Chronic low back pain 07/25/2015 DDD (degenerative disc disease), lumbar 07/25/2015 Spinal stenosis of lumbar region 07/25/2015 Facet arthritis of lumbar region 07/25/2015 PAST SURGICAL HISTORY: Past Surgical History Procedure Laterality Date Facet neurotomy [place] Injection foramen epidural l/s Injection lumbar/sacral CURRENT MEDICATIONS: Current Outpatient Prescriptions Medication Sig Dispense Refill acetaminophen (TYLENOL) 325 mg tablet Take 325 mg by mouth every 4 hours as needed for Pain. HYDROcodone-acetaminophen (NORCO) 5-325 mg per tablet Take 1-2 tablets by mouth every 6 hours as needed for Pain. lisinopril (PRINIVIL,ZESTRIL) 40 MG tablet Take 40 mg by mouth Daily. Naproxen Sodium (ALEVE PO) Take 440 tablets by mouth Daily. tadalafil (CIALIS) 5 MG tablet Take 5 [...] no rheumatoid arthritis. PHYSICAL EXAMINATION: Blood pressure 121/79, pulse 96, resp. rate 14, height 1.803 m (5' 11"), weight 99.791 kg ( 220 lb). Body mass index is 30.7 kg/(m^2). GENERAL: Gianfranco Rodriguez is in no [...] has no apparent deficits with short or mcc memory. CRANIAL NERVES: II: Acuity is intact. [...] Intrinsics 5 5 Ulnar Intrinsics 5 5 Chain Offbearer Strength 5 5 Hip Flexion 5 5 [...] Yes Lumbar stenosis Lumbar radicular pain Chronic low back pain with left-sided sciatica, unspecified back pain laterality GENERAL DIAGNOSES: Past Medical History Diagnosis Date ED (erectile dysfunction) BPH (benign prostatic hyperplasia) Right knee sprain 12/05/1992 Spondylosis 03/20/2011 Left hip pain Benign essential hypertension Spinal stenosis of lumbar region Male hypogonadism Lumbosacral radiculopathy History of tobacco use Chronic low back pain 07/25/2015 DDD (degenerative disc disease), lumbar 07/25/2015 Spinal stenosis of lumbar region 07/25/2015 Facet arthritis of lumbar region 07/25/2015 PLAN: Gianfranco Rodriguez presented today, and it [...] In discussing the surgical options, we discussed XLIF L3-4 and TLIF L4-5. He would like to proceed with this treatment. We discussed the risks, alternatives, and benefits to surgical intervention with Mr. Rodriguez in clinic. These risks included but were not limited to , stroke, heart attack, numbne ss, weakness, paralysis, failure of fusion, failure of hardware, subsidence, adjacent segmen t degeneration, cerebrospinal fluid leak, bleeding, infection, injury to surrounding tissues and organs, injury from positioning, injury to the nerves, difficulty with breathing, diffi culty with swallowing, difficulty with voice change, and need for additional surgery. Surgical options were discussed and the technique to be employed was described in detail to him. All his questions were answered. We discussed that the goal of the surgery is to prevent progression of his disease, but it is not considered a cure. We also discussed that although some patients may obtain 100% sym ptom relief, it is realistic to anticipate that some symptoms will continue postoperatively despite a successful surgery. We also discussed that there is no guarantee that surgery will provide improvement in his c ondition, and indeed may even worsen the symptoms. We also discussed that in the course of the procedure the operative plan may be altered to include more, less, or different levels d epending upon findings in order to provide him with the best possible outcome. I am prescribing a brace before surgery to improve his stability now to support his weak mu scles and to reduce pain by restricting mobility. For multiple (more than 1 level) fusions, I am also prescribing a bone growth stimulator po stoperatively. This is to improve the probability and rate of fusion. He will follow-up with his primary care provider for preoperative clearance and optimizatio n prior to presenting for surgery. ELECTRONICALLY SIGNED BY: Uday Quezada DO, 10/02/2015 9:34 documented in this en counter Plan of Treatment Not on filedocumented as of this encounter Visit Diagnoses + + | Diagnosis | + + | Spondylolisthesis, lumbar region - Primary | + + | Lumbar stenosis Spinal stenosis, lumbar region, without neurogenic claudication | + + | Lumbar radicular pain Thoracic or lumbosacral neuritis or radiculitis, unspecified | + + | Chronic low back pain with left-sided sciatica, unspecified back pain laterality | + + documented in this encounter
--- OUTSIDE RECORDS SUMMARY | ~2019-07-05 | XMS | Encounter Summary ---
Demographics + + + | Address | [address] | | | [place] [address] | + + + | Home Phone | | + + + | Preferred Language | Unknown | + + + | Marital Status | | + + + | Restorationist Affiliation | Unknown | + + + [...] Team Providers + +------+ + | Care Plasterer Maintenance Name | Role | Phone | + +------+ + | Kanika Dominguez PA-C | PCP | | + +------+ + Reason for Visit +--------+ + | Reason | Comments | +--------+ + | Letter | | +--------+ + Encounter Details +--------+ + + + + | Date | Type | Department | Care Team | Description | +--------+ + + + + | 12/09/ | Telephone | [facility] [place] | Uday Quezada, | Letter | | 2017 | | NEUROSURGERY [address] | DO [address] | | | | | [address] | [address] [place] | | | | | [place] | [address] | | | | | [address] | | | | | | [phone] | | | +--------+ + + + [...]
--- OUTSIDE RECORDS SUMMARY | ~2019-07-05 | XMS | Encounter Summary ---
Demographics + + + | Address | [address] | | | [place] [address] | + + + | Home Phone | | + + + | Preferred Language | Unknown | + + + | Marital Status | | + + + | Roman Catholic Affiliation | Unknown | + + + | Race | Unknown | + + + | Ethnic Group | Unknown | + + + Author + + + | Author | [facility] | | | and [place] | + + + | Organization | [facility] | | | [...] Team Providers + +------+ + | Care Metal Products Fabricator Assembler Name | Role | Phone | + [...] + + | Closed | Specialty | Neurosurgery | Diagnoses | Dam[place], | | | | Services | | | Uday Umanzor DO | | | | Required | | Spondylolist | [address] | | | | | | hesis of | [address] | | | | | | lumbar | [place] | | | | | | region | [address] | | | | | | | Phone: | | | | | | | [phone] | | | | | | | Fax: | | | | | | | [phone] | | +--------+ + + + + + Reason for Visit + + + | Reason | Comments | + + + | Appointment Question | | + + + Encounter Details +--------+ + + + + | Date | Type | Department | Care Team | Description | +--------+ + + + + | 12/09/ | Telephone | [facility] [place] | Uday Quezada, | Appointment Question | | 2015 | | NEUROSUR[address] | DO [address] | | | | | [address] | [place] | | | | | [place] | [address] | | | | | [address] | | | | | | [phone] | | | +--------+ + + + [...] of this encounter Plan of Treatment + + +--------+ + + | Name | Type | Priori | Associated Diagnoses | Order Schedule | | | | ty | | | + + +--------+ + + | Neurosurgery, | Outpatient | Routin | Spondylolisthesis | Ordered: 12/11/2015 | | External - AMB | Referral | e | of lumbar region | | | Referral | | | | | + + +--------+ + + documented as of this encounter Visit Diagnoses + + | Diagnosis | + + | Spondylolisthesis of lumbar region - Primary Acquired spondylolisthesis | + + documented in this encounter"
--- OUTSIDE RECORDS SUMMARY | ~2019-07-05 | XMS | Encounter Summary ---
Demographics + + + | Address | [address] | | | [place] [address] | + + + | Home Phone | | + + + | Preferred Language | Unknown | + + + | Marital Status | | + + + | Hindu Affiliation | Unknown | + + + | Race | Unknown | + + + | Ethnic Group | Unknown | + + + Author + + + | Author | [facility] | | | and [place] | + + + | Organization | [facility] | | [...] Team Providers + +------+ + | Care Ribbon Hand Name | Role | Phone | + [...] | | | | | | | SC SHLDR | | | | | | | ARTHROSCOP,E | | | | | | | XTEN DEBRIDE | | | | | | | SC REPAIR | | | | | | | ROTATOR | | | | | | | CUFF,CHRONIC | | | | | | | SC PARTIAL | | | | | | | REMOVAL, | | | | | | | CLAVICLE SC | | | | | | | PARTIAL | | | | | | | REMOVAL/REPA | | | | | | | IR,ACROMION | | | | | | | SC REPAIR | | | | | | [...] + + | 09/02/ | Anesthesia | [facility] | Hansel Garcia | | | 2018 | Event | MED CTR OR INTRA OP | MD Kallie [address] | | | | | [address] | [address] [facility] | | | | | [place], [place] | [place] [address] | | | | | [address] | [phone] | | | | | [phone] | | | +--------+ + + + [...] +----+---+ + + | | 1 | [place] | | | | 3 | 43-degrees [...] +----+---+ + + | | 1 | [place] off | | | | 4 | [...] | Mary Guardado, | | IV | iikc-yqb-hyceac catheter system; | | RN | | [...] | | | | | visualization with [place]. | | | | | Atraumatic airway [...] 2:17 | | | | | Starting [facility] 09/02/17 at 1345, | | PM [...]
--- OUTSIDE RECORDS SUMMARY | ~2019-07-05 | XMS | Encounter Summary ---
Demographics + + + | Address | [address] | | | [place] [address] | + + + | Home Phone | | + + + | Preferred Language | Unknown | + + + | Marital Status | | + + + | Caodaism Affiliation | Unknown | + + + | Race | Unknown | + + + | Ethnic Group | Unknown | + + + Author + + + | Author | [facility] | | | and [place] | + + + | Organization | [facility] | | | and [...] Team Providers + +------+ + | Care Customer Support Professional Name | Role | Phone | + [...] [place] | | | | | | [address] | (Fax) | | | | | [phone] | | | +--------+ + + + [...]
--- OUTSIDE RECORDS SUMMARY | ~2019-07-05 | XMS | Encounter Summary ---
Demographics + + + | Address | [address] | | | [place] [address] | + + + | Home Phone | | + + + | Preferred Language | Unknown | + + + | Marital Status | | + + + | Episcopalian Affiliation | Unknown | + + + | Race | Unknown | + + + | Ethnic Group | Unknown | + + + Author + + + | Author | [facility] | | | and [place] | + + + | Organization | [facility] | | | [...] Team Providers + +------+ + | Care Rn Navigator Name | Role | Phone | + [...] | | | | | | | ME SHLDR | | | | | | | ARTHROSCOP,E | | | | | | | XTEN DEBRIDE | | | | | | | ME REPAIR | | | | | | | ROTATOR | | | | | | | CUFF,CHRONIC | | | | | | | ME PARTIAL | | | | | | | REMOVAL, | | | | | | | CLAVICLE ME | | | | | | | PARTIAL | | | | | | | REMOVAL/REPA | | | | | | | IR,ACROMION | | | | | | | ME REPAIR | | | | | | [...] + + + + | 09/02/ | Hospital | [facility] | Ramón Lobato, | Complete tear of | | 2018 | Encounter | MED CTR OR INTRA OP | MD [address] | left rotator cuff; | | | | [address] | [place] | [place] | | | | [place] | [address] | (acromioclavicular) | | | | [address] | | arthritis; | | | | [phone] | | Tendonitis of upper | | | | | | biceps tendon of | | | | | | left shoulder | +--------+ + + + + Social [...] torso to move your arm in a [place] as it hangs straight down, make circles with your hand first in one direction, then the other. After surgery, rest your arm and relax for the rest of day. If you had general anesthesia (were put to sleep for the procedure), don t operate pow er tools or machinery, drink alcohol, or make any major decisions for at [id number] af ter surgery. Wear your sling, brace, [...] move your affecte d arm in a [place]. First [id number] in one direction. Then [id number] in the other direction. Repeat the pendulum exercise wkciq6frgs(s)while you are awake. When you feel ready , increase the number of circles to 50 in each direction lprxu4bvrf(s). Incision care Check your incision daily for [...] your shoulder to reduce swelling for the [id number]. Leave the ice pack on for 20minutes; then take it off [id number]. Repeat as needed. Take your temperature daily [id number] your surgery. Report a fever unurj087. 4F(38C) to your doctor. Fever may be [...] incision Nausea or vomiting Date Last Reviewed: 12/21/201519999301-2436 [employer]. [address] [place] [address], [place] [address]. All righ ts reserved. This information is [...] spray IN 1 | | 0 | 02/16/20 | | | | NOSTRIL may repeat [...] | Complete tear of left rotator cuff | + + | AC (acromioclavicular) arthritis Unspecified arthropathy, shoulder region | + + | Tendonitis of upper biceps tendon of left shoulder | + + documented in this encounter Administered Medications + +--------+ [...] PDT | | | | | Starting 09/02/17 at 1424, | | | | | [...] Shortness of Breath, Starting | | | 09/02/17 at 1424, For 1 dose, | | [...] if SBP <90., Starting | | | Thu09/02/17 at 1424, Hold if HR > | | | 100. Maximum total dose 20mg., | | | Recovery/Phase I | | + +---+ | | | + +---+ | fentaNYL (PF) injection 25-50 | | | mcg 25-50 mcg, Intravenous, | | | EVERY 5 MIN PRN, Pain, Starting | | | Thu09/02/17 at 1424, Maximum | | | total [...] MIN PRN, | | | Pain, Starting 09/02/17 at | | | 1424, Maximum total [...] ONCE | | | PRN, Nausea, Starting 09/02/17 | | | at 1424, For 1 [...]
--- OUTSIDE RECORDS SUMMARY | ~2019-07-05 | XMS | Encounter Summary ---
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
--- OUTSIDE RECORDS SUMMARY | ~2019-07-05 | XMS | Encounter Summary ---
Demographics + + + | Address | [address] | | | [place] [address] | + + + | Home Phone | | + + + | Preferred Language | Unknown | + + + | Marital Status | | + + + | Sabianist Affiliation | Unknown | + + + [...] Team Providers + +------+ + | Care Can Filler Name | Role | Phone | + [...] [place] | | | | | | [address] | | | | | | [phone] | | | +--------+ + + + [...]
--- OUTSIDE RECORDS SUMMARY | ~2019-07-05 | XMS | Clinical Summary ---
Demographics + + + | Address | [address] | | | [place] [address] | + + + | Home Phone | | + + + | Preferred Language | Unknown | + + + | Marital Status | | + + + | Jain Affiliation | Unknown | + + + | Race | Unknown | + + + | Ethnic Group | Unknown | + + + Author + + + | Author | [facility] | | | and [place] | + + + | Organization | [facility] | | | and [...] Team Providers + +------+ + | Care Home Aid Name | Role | Phone | + [...] | [employer] | [employer] | [id number] | | [phone] | | Medica | | MEDICAID HMO | HEALTH | | [id number] | 1 | | id | | | MDCD | | esent | | | | | | HMO OR | | | | | | + +--------+ +--------+ +---------+--------+ | [facility] | [employer] | [id number] | 06/22/19 | | | Indemn | [...] cristina | | | 7 (Home) | [id number] | + +--------+ +--------+ + + Advance Directives + + + + + | Type | Date Recorded | Patient | Explanation | | | | Grades 1 Thru 6 Home Teacher | | + + + + + | Power of | | | | | News Specialist | | | | + + + [...]
--- OUTSIDE RECORDS SUMMARY | ~2019-07-05 | XMS | Encounter Summary ---
Demographics + + + | Address | [address] | | | [place] [address] | + + + | Home Phone | | + + + | Preferred Language | Unknown | + + + | Marital Status | | + + + | Uatsdin Affiliation | Unknown | + + + [...] Providers + +------+ + | Care Director Business Management Name | Role | Phone | + [...] [place] | | | | | | [address] | (Fax) | | | | | [phone] | | | +--------+ + + + [...] + + | MRI PELVIS WO | Routin | 05/29/2015 | | Results for this | | CONTRAST | e | 8:43 AM | | procedure are in the | | | | PST | | results section. | + +--------+ + + + documented in this encounter Results MRI Pelvis wo Contrast (05/29/2015 8:43 AM PST) + + | Specimen | [...]
--- OUTSIDE RECORDS SUMMARY | ~2019-07-05 | XMS | Encounter Summary ---
Demographics + + + | Address | [address] | | | [place] [address] | + + + | Home Phone | | + + + | Preferred Language | Unknown | + + + | Marital Status | | + + + | Church Affiliation | Unknown | + + + | Race | Unknown | + + + | Ethnic Group | Unknown | + + + Author + + + | Author | [facility] | | | and [place] | + + + | Organization | [facility] | | | and [...] Providers + +------+ + | Care Shift Manager Name | Role | Phone | + +------+ + | Kanika Dominguez PA-C | PCP | | + +------+ + Reason for Visit +---------+ + | Reason | Comments | +---------+ + | Post Op | left shoulder arthroscopy rotator cuff repair acromioplasty DCE | | | DOS 09/02/17 | +---------+ + Encounter Details +--------+---------+ + + + | Date | Type | Department | Care Team | Description | +--------+---------+ + + + | 09/07/ | Office | [facility] | Ramón Lobato, | Postop check | | 2018 | Visit | ORTHOPEDIC SURGERY | MD Babatunde FIELDS | (Primary Dx) | | | | [address] [facility] | [place] | | | | | [place] | [address] | | | | | [address] | | | | | | [phone] | | | +--------+---------+ + + + [...] encounter Progress Notes Ramón Lobato MD - 09/07/2017 3:45 PM PDTPatient returns postop left shoulder RC repair and biceps tenodesis He is doing well The wound is clean and dry Swelling is minimal We demonstrated the passive stretches and discussed the restrictions needed to protect the repair Will return in one month documented in this encounter Plan of Treatment Not on filedocumented as of this encounter Visit Diagnoses + + | Diagnosis | + + | Postop check - Primary Follow-up examination, following unspecified surgery | + + documented in this encounter"
--- OUTSIDE RECORDS SUMMARY | ~2019-07-05 | XMS | Encounter Summary ---
Demographics + + + | Address | [address] | | | [place] [address] | + + + | Home Phone [...] Team Providers + +------+ + | Care Early Breastfeeding Care Specialist Name | Role | Phone | + [...] + + | 09/07/ | Office | [facility] | Ramón Lobato, | Postop check | | 2018 | Visit | ORTHOPEDIC SURGERY | MD Babatunde FIELDS | (Primary Dx) | | | | [address] [facility] | [place] | | | | | [place] | [address] | | | | | [address] | | | | | | [phone] | | | +--------+---------+ + + + [...]
--- OUTSIDE RECORDS SUMMARY | ~2019-07-05 | XMS | Encounter Summary ---
Demographics + + + | Address | [address] | | | [place] [address] | + + + | Home Phone | | + + + | Preferred Language | Unknown | + + + | Marital Status | | + + + | Yarsanism Affiliation | Unknown | + + + | Race | Unknown | + + + | Ethnic Group | Unknown | + + + Author + + + | Author | [facility] | | | and [place] | + + + | Organization | [facility] | | | [...] Team Providers + +------+ + | Care Shipping Support Name | Role | Phone | + [...] | | | | | | | PA SHLDR | | | | | | | ARTHROSCOP,E | | | | | | | XTEN DEBRIDE | | | | | | | PA REPAIR | | | | | | | ROTATOR | | | | | | | CUFF,CHRONIC | | | | | | | PA PARTIAL | | | | | | | REMOVAL, | | | | | | | CLAVICLE PA | | | | | | | PARTIAL | | | | | | | REMOVAL/REPA | | | | | | | IR,ACROMION | | | | | | | PA REPAIR | | | | | | [...] + + | 09/02/ | Hospital | [facility] | Ramón Lobato, | Complete tear of | | 2018 | Encounter | MED CTR OR INTRA OP | MD [address] | left rotator cuff; | | | | [address] | [place] | [place] | | | | [place] | [address] | (acromioclavicular) | | | | [address] | | arthritis; | | | | [phone] | | Tendonitis of upper | | [...] torso to move your arm in a king salmon as it hangs straight down, make circles with your hand first in one direction, then the other. After surgery, rest your arm and relax for the rest of day. If you had general anesthesia (were put to sleep for the procedure), don t operate pow er tools or machinery, drink alcohol, or make any major decisions for at [id number] af ter surgery. Wear your sling, brace, [...] move your affecte d arm in a king salmon. First [id number] in one direction. Then [id number] in the other direction. Repeat the pendulum exercise [id number](s)while you are awake. When you feel ready , increase the number of circles to 50 in each direction mjneo6caah(s). Incision care Check your incision daily for [...] your shoulder to reduce swelling for the [id number]. Leave the ice pack on for 20minutes; then take it off [id number]. Repeat as needed. Take your temperature daily [id number] your surgery. Report a fever iuplt600. 4F(38C) to your doctor. Fever may be [...] incision Nausea or vomiting Date Last Reviewed: 12/21/201519990197-5973 [employer]. [address] [place] [address], [place] [address]. All righ ts reserved. This information is [...]
--- OUTSIDE RECORDS SUMMARY | ~2019-07-05 | XMS | Encounter Summary ---
Demographics + + + | Address | [address] | | | [place] [address] | + + + | Home Phone [...] Team Providers + +------+ + | Care President Celebrity Acquistion Name | Role | Phone | + +------+ + | Kanika Dominguez PA-C | PCP | | + +------+ + Reason for Visit + + + | Reason | Comments | + + + | Coordination Of Care | [place] | + + + Encounter Details +--------+ + + + + | Date | Type | Department | Care Team | Description | +--------+ + + + + | 01/22/ | Telephone | [facility] | Uday Quezada, | Coordination Of Care | | 2018 | | NEUROSURGERY [address] | DO [address] | ([place]) | | | | [address] | [address] [place], [place] | | | | | [place], [place] | [address] | | | | | [address] | | | | | | [phone] | | | +--------+ + + + [...]
--- OUTSIDE RECORDS SUMMARY | ~2019-07-05 | XMS | Encounter Summary ---
Demographics + + + | Address | [address] | | | [place] [address] | + + + | Home Phone [...] Team Providers + +------+ + | Care Remedy Developer Name | Role | Phone | + +------+ + | Kanika Dominguez PA-C | PCP | | + +------+ + Reason for Visit Evaluate & Treat (Routine) +--------+ + + [...] | (obstructive | [address] | [place] | | | | | sleep | [facility] | [place], | | | | | apnea) | [place] | [place] [address] | | | | | Procedures | [address] | Phone: | | | | | OR SLEEP | Phone: | [phone] | | | | | STUDY, | [phone] | Fax: | | | | | UNATTENDED, | Fax: | [phone] | | | | | SIMUL RECORD | [phone] | | | | | | HR/O2 | | | | | | | SAT/RESP | | | | | | | FLOW/RESP | | | | | | | EFF HST | | | | | | | (03/01/18 @ | | | | | | | 9am) | | | +--------+ + + + + + Encounter Details +--------+ + + + + | Date | Type | Department | Care Team | Description | +--------+ + + + + | 03/02/ | Hospital | [facility] | Basilia Baker MD | Obstructive sleep | | 2017 - | Encounter | MED CTR SLEEP | [address] | apnea | | | | CENTER [address] | [place] | | | 03/03/ | | [place] | [address] | | | 2017 | | [address] | | | | | | [phone] | | | +--------+ + + + [...] + +------+---+---------+ + + | Comments: QUIT 10/1/10 Started using in April 2015 | + [...] + + + +---------+ + + | cholecalciferol | Take 5,000 Units by | | 0 | | | | (VITAMIN D-3) 5000 | mouth Daily. | | | | | | units TABS | | | | | | + + + +---------+ + + | lisinopril | | | 0 | 10/15/19 | | | (PRINIVIL,ZESTRIL) | | | [...] | + +--------+ + + + | SLEEP STUDY HOME | Routin | 03/05/2018 | | Results for this | | SLEEP TEST | e | 8:09 AM | | procedure are in the | | | | PDT | | results section. | + +--------+ + + + documented in this encounter Results Sleep study home sleep test (03/05/2018 8:09 AM PDT) + + + | Narrative | Performed At | + + + | Basilia Baker, | | | 03/05/2018 8:15 [facility] | | | [place] [address] Unattended, | | | Multiparameter, Sleep Apnea Test for Gianfranco Rodriguez performed on | | | March 02, 2018. Identifying Information: Gianfranco Rodriguez is a 52 | | | y.o. male who is referred for unattended, multi-parameter, sleep apnea | | | test because of probable Obstructive Sleep Apnea. He has a history of | | | hypertension, chronic low back pain status post lumbar surgery in | | | December 2017, status post shoulder surgery, hypogonadism, and obesity | | | presenting for evaluation of obstructive sleep apnea.BMI: 32.5 | | | Technical Information: The study was performed on March 02, 2018 | | | using the [employer] equipment with [employer] Version 9 | | | Software. The study was hand scored and hand analyzed. The following | | | physiologic parameters were monitored: snoring, body position, oxygen | | | saturation, heart rate, nasal airflow (PTAF), oral airflow | | | (thermister) and thoracic and abdominal effort (RIP belts). EEG was | | | not monitored and thus sleep staging was not performed. A sleep | | | efficiency of 100% was assumed for the purposes of calculating | | | indices; this assumption can result in a significant underestimation | | | of disease severity. Because EEG was not monitored, Respiratory Effort | | | Related Arousals could not be enumerated; this can also result in | | | underestimation of disease severity. The sensitivity for Obstructive | | | Sleep Apnea of this type of study is high but the specificity is low. | | | Definitions (The AASM Manual for the Scoring of Sleep and Associated | | | Events, Version 2.3; 2016): Apnea: There is a drop in the peak signal | | | excursion by 90% or greater of pre-event baseline using an oronasal | | | thermal sensor, or an alternative apnea sensor and the duration of the | | | 90% or greater drop in sensor signal is greater than or equal to 10 | | | seconds. Obstructive Apnea: Event associated with continued or | | | increased inspiratory effort throughout the entire period of absent | | | airflow. Central Apnea: Event associated with absent inspiratory | | | effort throughout the entire period of absent airflow. Because EEG is | | | not monitored, Central Apneas cannot be scored with any degree of | | | reliability on this type of sleep study. Mixed Apnea: Event | | | associated with absent inspiratory effort in the initial portion of | | | the event followed by resumption of inspiratory effort during the | | | second portion of the event. Because EEG is not monitored, mixed | | | apneas are not reliably scored on this type of study. Hypopnea: The | | | peak signal excursions drop by 30% or more of pre-event baseline using | | | nasal pressure (diagnostic study), PAP device flow (titration study), | | | or an alternative hypopnea sensor (diagnostic study). The duration of | | | the 30% or greater drop in signal excursion must last for 10 seconds | | | or longer. The event is associated with a 3% or greater oxygen | | | desaturation from pre-event baseline or the event is associated with | | | an arousal. Respiratory Event Related Arousal: Because EEG is not | | | recorded, Respiratory Event Related Arousal's cannot be enumerated. | | | The Respiratory Event Index (ANABELLA) is the term used to represent the | | | frequency of apneas and hypopneas derived from Home Sleep Apnea | | | Testing(HSAT). It is a surrogate for AHI. Results: Data collection | | | commenced at 23:08 on March 02, 2018 and data collection | | | terminated at 6:35 on March 03, 2018. During the 447 minutes of | | | index study time there were 8 obstructive apneas, 0 central apneas, 0 | | | mixed apneas and 288 hypopneas. The ANABELLA was 39.7 which is severely | | | elevated. Relative time in supine position was 66.1%. The events | | | were worsened in the supine position with ANABELLA of 54.2. Non-supine | | | ANABELLA was 11.5.Mean oxygen oxygen saturation was 91%, chloe saturation | | | was 81%, and patient spent 29.2% of time( 130.4 minutes) below 90%. 3 | | | %Oxygen desaturation index was 39.9 and was severely elevated. | | | Average heart rate was 70 BPM. Interpretation: This home sleep | | | apnea testing (HSAT) showed sleep apnea which was obstructive in | | | nature, and it was severe in frequency of events, and severe in | | | frequency of desaturations. Sleep apnea was worsened in the supine | | | position. Chloe saturation was 81%, and patient spent 130.4 minutes | | | of time below 90%. The study was technically an adequate study. | | | Recommendations: 1. A trial of auto-CPAP at 5-20 cm H2O. 2. Weight | | | management. Basilia Baker MD Portions of this chart may have been | | | created with [employer] voice recognition software. Occasional wrong-word | | | or | | | | | | sound-alike | | | substitutions may have occurred due to the inherent limitations of | | | voice recognition software. Please read the chart carefully and | | | recognize, using context, where these substitutions have occurred. | | |time in supine position was 66.1%. The events were worsened in | | |the supine position with ANABELLA of 54.2. Non-supine ANABELLA was 11.5. | | |Mean oxygen oxygen saturation was 91%, chloe saturation was 81%, | | |and patient spent 29.2% of time( 130.4 minutes) below 90%. 3 | | |%Oxygen desaturation index was 39.9 and was severely elevated. | | |Average heart rate was 70 BPM. | | | | | |Interpretation: This home sleep apnea testing (HSAT) showed sleep | | |apnea which was obstructive in nature, and it was severe in | | |frequency of events, and severe in frequency of desaturations. | | |Sleep apnea was worsened in the supine position. Chloe | | |saturation was 81%, and patient spent 130.4 minutes of time below | | |90%. The study was technically an adequate study. | | | | | | | | |Recommendations: | | |1. A trial of auto-CPAP at 5-20 cm H2O. | | |2. Weight management. | | | | | | | | | | | |Basilia Baker MD | | | | | |Portions of this chart may have been created with [employer] voice | | |recognition software. Occasional wrong-word or sound-alike | | |substitutions may have occurred due to the inherent limitations | | |of voice recognition software. Please read the chart carefully | | |and recognize, using context, where these substitutions have | | |occurred. | | + + + + + | Procedure Note | + + | Basilia Baker MD - 03/05/2018 8:09 AM PDT [facility] | | [place], [place] [address], Multiparameter, Sleep | | Apnea Test for Gianfranco Rodriguez performed on March 02, 2018.Identifying Information: | | Gianfranco Rodriguez is a 52 y.o. male who is referred for unattended, multi-parameter, | | sleep apnea test because of probable Obstructive Sleep Apnea. He has a history of | | hypertension, chronic low back pain status post lumbar surgery in December 2017, status post | | shoulder surgery, hypogonadism, and obesity presenting for evaluation of obstructive | | sleep apnea.BMI: 32.5Technical Information: The study was performed on March 02, | | 2017 using the [employer] equipment with [employer] Version 9 Software. The study | | was hand scored and hand analyzed. The following physiologic parameters were monitored: | | snoring, body position, oxygen saturation, heart rate, nasal airflow (PTAF), oral | | airflow (thermister) and thoracic and abdominal effort (RIP belts). EEG was not | | monitored and thus sleep staging was not performed. A sleep efficiency of 100% was | | assumed for the purposes of calculating indices; this assumption can result in a | | significant underestimation of disease severity. Because EEG was not monitored, | | Respiratory Effort Related Arousals could not be enumerated; this can also result in | | underestimation of disease severity. The sensitivity for Obstructive Sleep Apnea of this | | type of study is high but the specificity is low.Definitions (The AASM Manual for the | | Scoring of Sleep and Associated Events, Version 2.3; 2016): Apnea: There is a drop in | | the peak signal excursion by 90% or greater of pre-event baseline using an oronasal | | thermal sensor, or an alternative apnea sensor and the duration of the 90% or greater | | drop in sensor signal is greater than or equal to 10 seconds. Obstructive Apnea: Event | | associated with continued or increased inspiratory effort throughout the entire period | | of absent airflow. Central Apnea: Event associated with absent inspiratory effort | | throughout the entire period of absent airflow. Because EEG is not monitored, Central | | Apneas cannot be scored with any degree of reliability on this type of sleep study. | | Mixed Apnea: Event associated with absent inspiratory effort in the initial portion of | | the event followed by resumption of inspiratory effort during the second portion of the | | event. Because EEG is not monitored, mixed apneas are not reliably scored on this type | | of study. Hypopnea: The peak signal excursions drop by 30% or more of pre-event baseline | | using nasal pressure (diagnostic study), PAP device flow (titration study), or an | | alternative hypopnea sensor (diagnostic study). The duration of the 30% or greater drop | | in signal excursion must last for 10 seconds or longer. The event is associated with a | | 3% or greater oxygen desaturation from pre-event baseline or the event is associated | | with an arousal. Respiratory Event Related Arousal: Because EEG is not recorded, | | Respiratory Event Related Arousal's cannot be enumerated.The Respiratory Event Index | | (ANABELLA) is the term used to represent the frequency of apneas and hypopneas derived from | | Home Sleep Apnea Testing(HSAT). It is a surrogate for AHI.Results: Data collection | | commenced at 23:08 on March 02, 2018 and data collection terminated at 6:35 on | | March 03, 2018. During the 447 minutes of index study time there were 8 obstructive | | apneas, 0 central apneas, 0 mixed apneas and 288 hypopneas. The ANABELLA was 39.7 which is | | severely elevated. Relative time in supine position was 66.1%. The events were | | worsened in the supine position with ANABELLA of 54.2. Non-supine ANABELLA was 11.5.Mean oxygen | | oxygen saturation was 91%, chloe saturation was 81%, and patient spent 29.2% of time( | | 130.4 minutes) below 90%. 3 %Oxygen desaturation index was 39.9 and was severely | | elevated. Average heart rate was 70 BPM. Interpretation: This home sleep apnea testing | | (HSAT) showed sleep apnea which was obstructive in nature, and it was severe in | | frequency of events, and severe in frequency of desaturations. Sleep apnea was worsened | | in the supine position. Chloe saturation was 81%, and patient spent 130.4 minutes of | | time below 90%. The study was technically an adequate study. Recommendations: 1. A | | trial of auto-CPAP at 5-20 cm H2O. 2. Weight management. Basilia Baker MDPortions of | | this chart may have been created with [employer] voice recognition software. Occasional | | wrong-word or | | | | sound-alike | | substitutions may have occurred due to the inherent limitations of voice recognition | | software. Please read the chart carefully and recognize, using context, where these | | substitutions have occurred. | + + documented in this encounter Visit Diagnoses + + | Diagnosis | + + | Obstructive sleep apnea Obstructive sleep apnea (adult) (pediatric) | + + documented in this encounter"
--- OUTSIDE RECORDS SUMMARY | ~2019-07-05 | XMS | Encounter Summary ---
Demographics + + + | Address | [address] | | | [place] [address] | + + + | Home Phone | | + + + | Preferred Language | Unknown | + + + | Marital Status | | + + + | Orthodox Affiliation | Unknown | + + + | Race | Unknown | + + + | Ethnic Group | Unknown | + + + Author + + + | Author | [facility] | | | and [place] | + + + | Organization | [facility] | | | [...] Team Providers + +------+ + | Care Snack Bar Attendant Name | Role | Phone | [...] | | ORTHOPEDIC SURGERY | MD [address] [facility] | (Nicotine Test) | | | | [address] [facility] | [place] | | | | | [place] | [address] | | | | | [address] | | | | | | [phone] | | | +--------+ + + + [...]
--- OUTSIDE RECORDS SUMMARY | ~2019-07-05 | XMS | Encounter Summary ---
Demographics + + + | Address | [address] | | | [place] [address] | + + + | Home Phone | | + + + | Preferred Language | Unknown | + + + | Marital Status | | + + + | Yarsani Affiliation | Unknown | + + + [...] Team Providers + +------+ + | Care Labor Relations Supervisor Name | Role | Phone | [...] | | | | | lumbar | [place] | [place] | | | | | region | [address] | [address] Phone: | | | | | Spinal | Phone: | [phone] | | | | | stenosis, | [phone] | Fax: | | | | | lumbar | Fax: | [phone] | | | | | region | [phone] | | | | | | Procedures | | | | | | | DC OFFICE | | | | | | [...] + + | 10/21/ | Office | [facility] | Uday Quezada, | Spondylolisthesis, | | 2017 | Visit | NEUROSURGERY [address] | DO [address] | lumbar region | | | | [address] | [address] [place], [place] | (Primary Dx); Lumbar | | | | [place] | [address] | stenosis; Lumbar | | | | [address] | | radicular pain; | | | | [phone] | | Chronic midline low | | [...] so you are not leaning toward the Deep Glint wheel. A small pillow or rolled towel [...] in the groin area Date Last Reviewed: 11/21/201519999165-3032 [employer]. [address] [place] [address], [place] [address]. All righ ts reserved. This information is not intended as a substitute for professional medical care. Always follow your healthcare professional's instructions. documented in this encounter Progress Notes Uday Quezada DO - 10/21/2016 10:04 AM PDTFormatting of this note might be different fro m the original. Uday Quezada DO [address] [facility] [place] [address] FAX: NEUROSURGERY HISTORY AND PHYSICAL EXAMINATION CHIEF COMPLAINT: Chief Complaint Patient presents with Follow-up Discuss surgery HISTORY OF PRESENT ILLNESS: The patient is a 51 y.o. male with the complaint of back pain symptoms that began around 2008. Pain came on after doing long extended sessions of [employer] dancing. He also participated in [employer] for many years. The patient describes low [...] has no apparent deficits with short or fpc memory. CRANIAL NERVES: II: Acuity is intact. [...] Intrinsics 5 5 Ulnar Intrinsics 5 5 Electronic Tester Strength 5 5 Hip Flexion 5 5 [...] indication for artifical disc replacement in the [facility]. This was discussed with the patient today. He feels strongly that this is the best kalyn miles for him and would like to proceed with his surgery in [facility]. He asked if I would wri te a letter of support if needed. I said I would do that. He will provide the office notes f [facility] if he decides a letter [...]
--- OUTSIDE RECORDS SUMMARY | ~2019-07-05 | XMS | Encounter Summary ---
Demographics + + + | Address | [address] | | | [place] [address] | + + + | Home Phone | | + + + | Preferred Language | Unknown | + + + | Marital Status | | + + + | Mormonism Affiliation | Unknown | + + + | Race | Unknown | + + + | Ethnic Group | Unknown | + + + Author + + + | Author | [facility] | | | and [place] | + + + | Organization | [facility] | | [...] Team Providers + +------+ + | Care Sales Trainee Name | Role | Phone | + [...] [place] | | | | | | [address] | | | | | | [phone] | | | +--------+ + + + [...]
--- OUTSIDE RECORDS SUMMARY | ~2019-07-05 | XMS | Encounter Summary ---
Demographics + + + | Address | [address] | | | [place] [address] | + + + | Home Phone [...] Author | [facility] | | | and [place] | + + + | Organization | [facility] | | [...] Team Providers + +------+ + | Care Hunting And Fishing Guide Name | Role | Phone | + +------+ + PCP | Unavailable | + +------+ + Encounter Details +--------+ + + + + | Date | Type | Department | Care Team | Description | +--------+ + + + + | 03/18/ | Hospital | [facility] | Gianfranco Tejada, | | | 1995 | Encounter | [facility] | [address] | | | | | EMERGENCY CENTER | [place] [address] | | | | | [address] | [phone] | | | | | [place] | | | | | | [address] | | | | | | [phone] | | | +--------+ + + + [...]
--- OUTSIDE RECORDS SUMMARY | ~2019-07-05 | XMS | Encounter Summary ---
Demographics + + + | Address | [address] | | | [place] [address] | + + + | Home Phone | | + + + | Preferred Language | Unknown | + + + | Marital Status | | + + + | Church Affiliation | Unknown | + + + | Race | Unknown | + + + | Ethnic Group | Unknown | + + + Author + + + | Author | [facility] | | | and [place] | + + + | Organization | [facility] | | | [...] Team Providers + +------+ + | Care Multi Operation Forming Machine Setter Name | Role | Phone | + +------+ + | Kanika Dominguez PA-C | PCP | | + +------+ + Reason for Visit Service/Procedure (Routine) +--------+--------+ + + + + | Status | Reason | Specialty | Diagnoses / | Referred By | Referred To | | | | | Procedures | Contact | Contact | +--------+--------+ + + + + | Closed | | Radiology | Diagnoses | | [facility] | | | | | Lumbar | Tamy, | [address] | | | | | radiculopath | Jamaal Akbar MD | [place], | | | | | y | [address] | [place] | | | | | Procedures | [place] | [address] | | | | | NE INJECT | [place], [place] | Phone: | | | | | ANES/STEROID | [address] | [phone] | | | | | FORAMEN | Phone: | Fax: | | | | | LUMBAR/SACRA | [phone] | [phone] | | | | | L W IMG | Fax: | | | | | | GUIDE ,1 | [phone] | | | | | | LEVEL NE | | | | | | | TRIAMCINOLON | | | | | | | E ACET INJ | | | | | | | NOS, 10 MG | | | | | | | Left L4-5 | | | | | | | TFESI | | | +--------+--------+ + + + + Encounter Details +--------+ + + + + | Date | Type | Department | Care Team | Description | +--------+ + + + + | 10/29/ | Hospital | [facility] | Esther, | Left lumbar | | 2016 | Encounter | MED CTR XRAY [address] | [place] [address] | radiculopathy | | | | [address] [place] | [facility], [address] | (Primary Dx); | | | | [place] [address] | [place] [address] | Chronic low back | | | | [phone] | [phone] | pain; DDD | | | | | | (degenerative disc | | | | | [facility] | disease), lumbar; | | | | | | Spinal stenosis of | | | | | | lumbar region; Facet | | | | | | arthritis of lumbar | | | | | | region (HCC) | +--------+ + + + + Social [...] this encounter Last Filed Vital Signs + +---------+ + + | Vital Sign | Reading | Time Taken | Comments | + +---------+ + + | Blood Pressure | 168/81 | 10/30/2015 1:29 PM | | | | | PDT | | + +---------+ + + | Pulse | - | - | | + +---------+ + + | Temperature | - | - | | + +---------+ + + | Respiratory Rate | - | - | | + +---------+ + + | Oxygen Saturation | - | - | | + +---------+ + + | Inhaled Oxygen | - | - | | | Concentration | | | | + +---------+ + + | Weight | - | - | | + +---------+ + + | Height | - | - | | + +---------+ + + | Body Mass Index | - | - | | + +---------+ + + documented in this encounter Medications at Time [...] EPIDURAL STEROID | Routin | 10/30/2015 | Chronic low back | Results for this | | INJECTION LUMBAR | e | 1:22 PM | pain DDD | procedure are in the | | TRANSFORAMINAL | | PDT | (degenerative disc | results section. | | | | | disease), lumbar | | | | | | Spinal stenosis of | | | | | | lumbar region Facet | | | | | | arthritis of lumbar | | | | | | region (HCC) | | + +--------+ + + + documented in this encounter Results FL KAREN Lumbar Transforaminal (10/30/2015 1:22 PM PDT) + + | Specimen | + + | | + + + + + | Narrative | Performed At | + + + | 10/30/2015 Transforaminal Epidural Steroid Injection Diagnosis: | [facility] | | Lumbar radiculopathy ICD-10 Code M54.16 Gianfranco Rodriguez | [facility] | | presents to the fluoroscopy suite for a fluoroscopically-guided [facility] | | L4-L5 transforaminal epidural steroid injection as part of | - IMAGING | | conservative management for chronic pain with lumbar radiculopathy | | | and degenerative disk disease. After informed consent was | | | obtained, the patient lay in the prone position on the fluoroscopy | | | table. The area was identified under fluoroscopic guidance. The | | | area was prepped and draped in sterile fashion. A 25-gauge, | | | 1.5-inch needle was inserted into this region and approximately 3 mL | | | of buffered 1% lidocaine was infused. Then, a 22-gauge spinal | | | needle was inserted into the posterior superior transforaminal space | | | and advanced into the epidural space under fluoroscopic guidance. | | | Confirmation into the epidural space was obtained with infusion of | | | approximately 1 mL of Omnipaque contrast which showed epidural flow | | | as well as nerve sheath flow. Then, a combination of 1.5 mL of | | | 1% lidocaine and 1.5 mL of 6 mg/mL Celestone was infused. The | | | patient tolerated the procedure well without complications. Pre- and | | | post-procedure blood pressures were stable. The patient was given | | | verbal as well as written follow-up instructions. Prior to | | | the start of the procedure, the following were performed and/or | | | verified, including correct patient identity, correct site/side marked | | | and visible, agreement on the procedure to be done, correct patient | | | positioning and an accurate procedure consent form. Any safety | | | precautions based on clinical history and/or medication use have been | | | addressed. I personally performed the procedure above. | | | Estimated blood loss: Minimal Complications: None Findings: As | | | expected Anesthesia: Local 1% Lidocaine | | + + + + + + + + | Performing | Address | City/State/Zipcode | Phone Number | | Organization | | | | + + + + + | [facility] | [address] | [place] | [phone] | | [facility] | | [address] | | | - IMAGING | | | | + + + + + documented in this encounter Visit Diagnoses + + | Diagnosis | + + | Left lumbar radiculopathy - Primary Thoracic or lumbosacral neuritis or radiculitis, | | unspecified | + + | Chronic low back pain Lumbago | + + | DDD (degenerative disc disease), lumbar Degeneration of lumbar or lumbosacral | | intervertebral disc | + + | Spinal stenosis of lumbar region Spinal stenosis, lumbar region, without neurogenic | | claudication | + + | Facet arthritis of lumbar region Lumbosacral spondylosis without myelopathy | + + documented in this encounter Administered Medications + +--------+ +------+------+------+ | Medication Order | MAR | Action | Dose | Rate | Site | | | Action | Date | | | | + +--------+ +------+------+------+ | betamethasone (CELESTONE | Given | 10/30/19 | 9 mg | | | | SOLUSPAN) injection 9 mg 9 mg, | | 16 1:25 | | | | | Other, EVERY 24 HOURS INTERVAL, | | PM PDT | | | | | First dose on Thu10/30/15 at | | | | | | | 1330, For 2 doses, Shake well. | | | | | | | Not for IV use., Radiology | | | | | | + +--------+ +------+------+------+ +---+---+ | | | +---+---+ + +-------+ +------+---+---+ | iohexol (OMNIPAQUE 300) 300 | Given | 10/30/19 | 1 mL | | | | mg/mL injection 1 mL 1 mL, | | 16 1:23 | | | | | Other, ONCE PRN, Other, Starting | | PM PDT | | | | | 10/30/15 at 1310, For 1 dose, | | | | | | | Radiology | | | | | | + +-------+ +------+---+---+ +---+---+ | | | +---+---+ + +-------+ +-------+---+---+ | lidocaine (PF) 1% injection 2 | Given | 10/30/19 | 2 mLs | | | | mL 2 mL, Other, ONCE, Tue | | 16 1:25 | | | | | 10/30/15 at 1330, For 1 dose, | | PM PDT | | | | | Radiology | | | | | | + +-------+ +-------+---+---+ +---+---+ | | | +---+---+ + +-------+ +-------+---+ + | lidocaine buffered 1% injection | Given | 10/30/19 | 6 mLs | | Other | | 6 mL 6 mL, Intradermal, ONCE, | | 16 1:20 | | | (Comment | | 10/30/15 at 1330, For 1 dose, | | PM PDT | | | ) | | Radiology | | | | | | + +-------+ +-------+---+ + +---+---+ | | | +---+---+ documented in this encounter"
--- OUTSIDE RECORDS SUMMARY | ~2019-07-05 | XMS | Encounter Summary ---
Demographics + + + | Address | [address] | | | [place] [address] | + + + | Home Phone | | + + + | Preferred Language | Unknown | + + + | Marital Status | | + + + | Sabianist Affiliation | Unknown | + + + | Race | Unknown | + + + | Ethnic Group | Unknown | + + + Author + + + | Author | [facility] | | | and [place] | + + + | Organization | [facility] | | [...] Team Providers + +------+ + | Care Learning Facilitator Name | Role | Phone | + +------+ + | Kanika Dominguez PA-C | PCP | | + +------+ + Reason for Visit +---------+ + | Reason | Comments | +---------+ + | Post Op | Left Shoulder Arthroscopy, Rotator Cuff Repair, Acromioplasty, | | | DCE and possible Biceps Tenodesis DOS:09/02/2017 | +---------+ + Encounter Details +--------+---------+ + + + | Date | Type | Department | Care Team | Description | +--------+---------+ + + + | 11/06/ | Office | [facility] | Ramón Lobato, | Postop check | | 2018 | Visit | ORTHOPEDIC SURGERY | MD Babatunde FIELDS | (Primary Dx) | | | | [address] [facility] | [place] | | | | | [place] | [address] | | | | | [address] | | | | | | [phone] | | | +--------+---------+ + + + [...] encounter Progress Notes Ramón Lobato MD - 11/06/2017 10:45 AM PDTPatient returns follow-up left shoulder rotato r cuff repair He is 2 months out now and doing quite well He has excellent range of motion Negative drop arm sign We showed him tubing exercises to work on and discussed the overall time for healing and re strictions to protect the repair He is can have back surgery in another 6 weeks and will let us know how he is doing overtim e documented in this en counter Plan of Treatment Not on filedocumented as of this encounter Visit Diagnoses + + | Diagnosis | + + | Postop check - Primary Follow-up examination, following unspecified surgery | + + documented in this encounter"
--- OUTSIDE RECORDS SUMMARY | ~2019-07-05 | XMS | Encounter Summary ---
Demographics + + + | Address | [address] | | | [place] [address] | + + + | Home Phone | | + + + | Preferred Language | Unknown | + + + | Marital Status | | + + + | Methodist Affiliation | Unknown | + + + | Race | Unknown | + + + | Ethnic Group | Unknown | + + + Author + + + | Author | [facility] | | | and [place] | + + + | Organization | [facility] | | | and [...] Team Providers + +------+ + | Care Grinding Wheel Facer Name | Role | Phone | + [...] [place] | [place] [address] | | | | | [address] | [phone] | | | | | [phone] | | | +--------+ + + + [...]
--- OUTSIDE RECORDS SUMMARY | ~2019-07-05 | XMS | Encounter Summary ---
Demographics + + + | Address | [address] | | | [place] [address] | + + + | Home Phone [...] Team Providers + +------+ + | Care Gearcase Assembler Name | Role | Phone | + +------+ + | Kanika Dominguez PA-C | PCP | | + +------+ + Encounter Details +--------+ + + + + | Date | Type | Department | Care Team | Description | +--------+ + + + + | 11/21/ | Imaging | [facility] | Provider, | | | 2017 | Exam | MED CTR EXTERNAL | MD [address] | | | | | IMAGING | [address] | | | | | [phone] | [place] [address] | | +--------+ + + + + [...] + +--------+ + + + | MRI SHOULDER LEFT WO | Routin | 08/25/2016 | | Results for this | | CONTRAST | e | 3:25 PM | | procedure are in the | | | | PST | | results section. | + +--------+ + + + documented in this encounter Results MRI Shoulder Left wo Contrast (08/25/2016 3:25 PM PST) + + | Specimen | + + | | + + + + + | Narrative | Performed At | + + + | External films for comparison only - no result from [place]. | [facility] | + + + + +---------+ + + | Performing | Address | City/State/Zipcode | Phone Number | | Organization | | | | + +---------+ + + | [facility] | | | | + +---------+ + + documented in this encounter Visit Diagnoses Not on filedocumented in this encounter"
--- OUTSIDE RECORDS SUMMARY | ~2019-07-05 | XMS | Encounter Summary ---
Demographics + + + | Address | [address] | | | [place] [address] | + + + | Home Phone | | + + + | Preferred Language | Unknown | + + + | Marital Status | | + + + | Adventist Affiliation | Unknown | + + + | Race | Unknown | + + + | Ethnic Group | Unknown | + + + Author + + + | Author | [facility] | | | and [place] | + + + | Organization | [facility] | | | [...] Team Providers + +------+ + | Care Cutter Aluminum Sheet Name | Role | Phone | + [...] [place] | [place] [address] | | | | | [address] | [phone] | | | | | [phone] | | | +--------+ + + + [...]
--- OUTSIDE RECORDS SUMMARY | ~2019-07-05 | XMS | Encounter Summary ---
Demographics + + + | Address | [address] | | | [place] [address] | + + + | Home Phone [...] Providers + +------+ + | Care Manager Intelligence Name | Role | Phone | + [...] | SLEEP DISORDER [address] | [address] | | | | | [address] [place] | [place], [place] | | | | | [place] [address] | [address] | | | | | [phone] | | | +--------+ + + + [...]
--- OUTSIDE RECORDS SUMMARY | ~2019-07-05 | XMS | Encounter Summary ---
Demographics + + + | Address | [address] | | | [place] [address] | + + + | Home Phone | | + + + | Preferred Language | Unknown | + + + | Marital Status | | + + + | Protestant Affiliation | Unknown | + + + [...] Team Providers + +------+ + | Care Barrel Washer Name | Role | Phone | + [...] Unknown | encounter | | | | [facility] [place] | [phone] | | | | | [address] | | | | | | [phone] | | | +--------+ + + + [...]
--- OUTSIDE RECORDS SUMMARY | ~2019-07-05 | XMS | Encounter Summary ---
Demographics + + + | Address | [address] | | | [place] [address] | + + + | Home Phone | | + + + | Preferred Language | Unknown | + + + | Marital Status | | + + + | Islam Affiliation | Unknown | + + + | Race | Unknown | + + + | Ethnic Group | Unknown | + + + Author + + + | Author | [facility] | | | and [place] | + + + | Organization | [facility] | | [...] Team Providers + +------+ + | Care Male Infertility Specialist Name | Role | Phone | [...] [address] | [address] [place] | | | | | [place] | [address] | | | | | [address] | | | | | | [phone] | | | +--------+ + + + [...]
--- OUTSIDE RECORDS SUMMARY | ~2019-07-05 | XMS | Encounter Summary ---
Demographics + + + | Address | [address] | | | [place] [address] | + + + | Home Phone | | + + + | Preferred Language | Unknown | + + + | Marital Status | | + + + | Spiritism Affiliation | Unknown | + + + | Race | Unknown | + + + | Ethnic Group | Unknown | + + + Author + + + | Author | [facility] | | | and [place] | + + + | Organization | [facility] | | | [...] Team Providers + +------+ + | Care Academic Affairs Dean Name | Role | Phone | + [...] [place] | | | | | | [address] | (Fax) | | | | | [phone] | | | +--------+ + + + [...] | MRI PELVIS WO | Routin | 08/24/2014 | | Results for this | | CONTRAST | e | 8:46 AM | | procedure are in the | | | | PST | | results section. | + +--------+ + + + documented in this encounter Results MRI Pelvis wo Contrast (08/24/2014 8:46 AM PST) + + | Specimen | [...]
--- OUTSIDE RECORDS SUMMARY | ~2019-07-05 | XMS | Encounter Summary ---
Demographics + + + | Address | [address] | | | [place] [address] | + + + | Home Phone | | + + + | Preferred Language | Unknown | + + + | Marital Status | | + + + | Anabaptism Affiliation | Unknown | + + + | Race | Unknown | + + + | Ethnic Group | Unknown | + + + Author + + + | Author | [facility] | | | and [place] | + + + | Organization | [facility] | | [...] Team Providers + +------+ + | Care Bread Distributor Name | Role | Phone | + [...] | | | | | region | [address] | | | | | | | Phone: | | | | | | | [phone] | | | | | | | Fax: | | | | | | | [phone] | | +--------+ + + + + [...] | | | [place] | [address] | | | | | [address] | | | | | | [phone] | | | +--------+ + + + [...]
--- OUTSIDE RECORDS SUMMARY | ~2019-07-05 | XMS | Encounter Summary ---
Demographics + + + | Address | [address] | | | [place] [address] | + + + | Home Phone [...] Team Providers + +------+ + | Care Draw Operator Name | Role | Phone | + +------+ + | Kanika Dominguez PA-C | PCP | | + +------+ + Encounter Details +--------+ + + + + | Date | Type | Department | Care Team | Description | +--------+ + + + + | 01/27/ | Hospital | [facility] | Conversion | Pain | | 2018 | Encounter | CONVERSION DEP [address] | Transaction, | | | | | [facility] | Provider Unknown | | | | | [place] | | | | | | [address] | (Fax) | | | | | [phone] | | | +--------+ + + + [...] | 0 | 10/15/19 | | | (CRIS KENDRICKSTRIL) | | | | 18 | | [...] SPINE WO | Routin | 11/24/2017 | | Results for this | | CONTRAST | e | 8:55 PM | | procedure are in the | | | | PDT | | results section. | + +--------+ + + + documented in this encounter Results MRI Lumbar Spine wo Contrast (11/24/2017 8:55 PM PDT) + + | Specimen | + + | | + + + + + | Narrative | Performed At | + + + | This is a non-reportable procedure without a radiologist report and | | | is used for image storage only | | + + + + + | Procedure Note | + + | Wilian Draper - 02/02/2019 1:36 PM PDT This is a non-reportable procedure | | without a radiologist report and isused for image storage only | + + documented in this encounter Visit Diagnoses + + | Diagnosis | + + | Pain Generalized pain | + + documented in this encounter"
--- OUTSIDE RECORDS SUMMARY | ~2019-07-05 | XMS | Encounter Summary ---
Demographics + + + | Address | [address] | | | [place] [address] | + + + | Home Phone [...] Team Providers + +------+ + | Care Railcar Switchman Name | Role | Phone | + +------+ + | Kanika Dominguez PA-C | PCP | | + +------+ + Encounter Details +--------+ + + + + | Date | Type | Department | Care Team | Description | +--------+ + + + + | 01/27/ | Hospital | [facility] | Conversion | Pain | | 2018 | Encounter | CONVERSION DEP [address] | Transaction, | | | | | [facility] | Provider Unknown | | | | | [place] | | | | | | [address] | (Fax) | | | | | [phone] | | | +--------+ + + + [...] + + + | XR LUMBAR SPINE 2 OR | Routin | 11/24/2017 | | Results for this | | 3 VW | e | 8:56 PM | | procedure are in the | | | | PDT | | results section. | + +--------+ + + + documented in this encounter Results XR Lumbar Spine 2 or 3 Vw (11/24/2017 8:56 PM PDT) + + | Specimen | [...]
--- OUTSIDE RECORDS SUMMARY | ~2019-07-05 | XMS | Encounter Summary ---
Demographics + + + | Address | [address] | | | [place] [address] | + + + | Home Phone | | + + + | Preferred Language | Unknown | + + + | Marital Status | | + + + | Congregational Affiliation | Unknown | + + + | Race | Unknown | + + + | Ethnic Group | Unknown | + + + Author + + + | Author | [facility] | | | and [place] | + + + | Organization | [facility] | | [...] Team Providers + +------+ + | Care Social Worker Masters Name | Role | Phone | + +------+ + | Kanika Dominguez PA-C | PCP | | + +------+ + Encounter Details +--------+---------+ + + + | Date | Type | Department | Care Team | Description | +--------+---------+ + + + | 10/01/ | Office | [facility] [place] | Ramón Lobato, | Postop check | | 2018 | Visit | ORTHOPEDIC SURGERY | MD Babatunde MYERS | (Primary Dx) | | | | [address] [facility] | [place] | | | | | [place] | [address] | | | | | [address] | | | | | | [phone] | | | +--------+---------+ + + + [...] encounter Progress Notes Ramón Lobato MD - 10/01/2017 3:45 PM PDTPatient returns postop left shoulder rotator c uff repair and biceps tenodesis He is doing a lot better He had what sounds like a suture abscess that was treated with Keflex His wound looks maturely healed today with no signs of infection He is doing well with passive range of motion and avoidance of any active use of the arm ye t We will continue these restrictions and I'll see him in a month and I anticipate some tubin g exercises at that time P DTdocumented in this encounter Plan of Treatment Not on filedocumented as of this encounter Visit Diagnoses + + | Diagnosis | + + | Postop check - Primary Follow-up examination, following unspecified surgery | + + documented in this encounter"
--- OUTSIDE RECORDS SUMMARY | ~2019-07-05 | XMS | Encounter Summary ---
Demographics + + + | Address | [address] | | | [place] [address] | + + + | Home Phone | | + + + | Preferred Language | Unknown | + + + | Marital Status | | + + + | Muslim Affiliation | Unknown | + + + | Race | Unknown | + + + | Ethnic Group | Unknown | + + + Author + + + | Author | [facility] | | | and [place] | + + + | Organization | [facility] | | | [...] Team Providers + +------+ + | Care Restaurant Hostess Name | Role | Phone | + +------+ + | Kanika Dominguez PA-C | PCP | | + +------+ + Encounter Details +--------+ + + + + | Date | Type | Department | Care Team | Description | +--------+ + + + + | 01/27/ | Hospital | [facility] | Conversion | Pain | | 2018 | Encounter | CONVERSION DEP [address] | Transaction, | | | | | [facility] | Provider Unknown | | | | | [place] | | | | | | [address] | (Fax) | | | | | [phone] | | | +--------+ + + + [...]
--- OUTSIDE RECORDS SUMMARY | ~2019-07-05 | XMS | Encounter Summary ---
Demographics + + + | Address | [address] | | | [place] [address] | + + + | Home Phone [...] Team Providers + +------+ + | Care Supervisor Process Testing Name | Role | Phone | + [...] | (obstructive | [address] | [place] | | | | | sleep | [address] | [place], | | | | | apnea) | [place] | [place] [address] | | | | | Procedures | [address] | Phone: | | | | | [place] [facility] | Phone: | [phone] | | | | | STUDY, | [phone] | Fax: | | | | | UNATTENDED, | Fax: | [phone] | | | | | SIMUL RECORD | [phone] | | | | | | HR/O2 [...] Sleep | (pediatric) | [place] | [place], [place] | | | | Medicine | CONSULT [address] | [address] | [address] Phone: | | | | | [address] | [facility], | [phone] | | | | | CPAP | [place] | Fax: | | | | | Procedures | [address] | [phone] | | | | | NEW PATIENT | Phone: | | | | | | | [phone] | | | | | | | Fax: | | | | | | | [phone] | | +--------+--------+ + + + + [...] sleep apnea) | | | | [address] [place] | [place] | (Primary Dx) | | | | [place] [address] | [address] | | | | | [phone] | | | +--------+---------+ + + + [...] when you re asleep. Date Last Reviewed: 01/20/[id number] The Pager[address] [place] [address]. All righ ts reserved. This information is [...] types of CPAP. Your doctor or CPAP fiber optic technician will help you decide whic h [...] sleep stage, and snoring. Date Last Reviewed: 01/20/201719995468-0648 The P[employer]. [address] [place] [address]. All righ ts reserved. 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 Wakes up a couple of times [...] after his re cent back surgery. ? [place] Sleepiness Scale: 8 out of 24 ( [...] Biceps Tendodesis; Surgeon: Ramón Lobato MD; Location: [facility] MAIN OR ALLERGIES No Known Allergies CURRENT [...] memory problems. discussed diagnosis via polysomnography / xdy-yb-wdavly sleep testing. Today, I ordered a home [...] this chart may have been created with [employer] voice recognition software. Occasi onal wrong-word or [...] Insomnia Severity Index Insomnia Severity Index 14 [place] Sleepiness Scale Sitting and reading 1 Watching [...] + + +--------+ + + | * [facility] - | Outpatient | Routin [...]
--- OUTSIDE RECORDS SUMMARY | ~2019-07-05 | XMS | Encounter Summary ---
Demographics + + + | Address | [address] | | | [place] [address] | + + + | Home Phone | | + + + | Preferred Language | Unknown | + + + | Marital Status | | + + + | Advent Affiliation | Unknown | + + + | Race | Unknown | + + + | Ethnic Group | Unknown | + + + Author + + + | Author | [facility] | | | and [place] | + + + | Organization | [facility] | [...] Team Providers + +------+ + | Care Psychiatric Nursing Aide Name | Role | Phone | + +------+ + | Kanika Dominguez PA-C | PCP | | + +------+ + Reason for Visit + + + | Reason | Comments | + + + | Back Pain | low left sided back pain | + + + Evaluate & [...] | Required | Rehabilitatio | Spondylolist | PA-C [address] | | | | n | hesis of | [address] | [address] [place] | | | | | lumbar | [address] | [place] | | | | | region | [place], | [address] Phone: | | | | | Lumbar | [place] [address] | [phone] | | | | | radiculopath | Phone: | Fax: | | | | | y Lumbar | [phone] | [phone] | | | | | facet | Fax: | | | | | | arthropathy | [phone] | | | | | | | [...] | | | | | | DOS 07/25/15 | | | +--------+ + + + + + Encounter Details +--------+---------+ + + + | Date | Type | Department | Care Team | Description | +--------+---------+ + + + | 07/25/ | Office | [facility] [place] | Esther, | Chronic low back | | 2015 | Visit | PHYSIATRY [address] | [address] | pain (Primary Dx); | | | | [place], | [facility] [address] | DDD (degenerative | | | | [place] [address] | [place] [address] | disc disease), | | | | [phone] | [phone] | lumbar; Spinal | | | | | | stenosis of lumbar | | | | | | region; Facet | | | | | [...] + + + | Blood Pressure | 114/82 | 07/25/2015 3:09 PM | | | | | PST | | + + + + + | Pulse | 107 | 07/25/2015 3:09 PM | | | | | [...] Weight | 102.1 kg (225 lb) | 07/25/2015 3:09 PM | | | | | PST | | + + + + + | Height | 180.3 cm (5' 11") | 07/25/2015 3:09 PM | | | | | PST | | + + + + + | Body Mass Index | 31.38 | 07/25/2015 3:09 PM | | | | | PST | | + + + + + documented in this encounter Patient Instructions Patient Instructions Josy Santana PA-C - 07/25/2015 3:54 PM PST1) Transforaminal s teroid injection with Dr. Morelos Foraminal Stenosis/Radicular Pain: Foraminal stenosis is a narrowing of the spinal foramen, the hole through which passes a s danelle nerve as it exits the spine. It is usually a form of degenerative spine disease which occurs slowly over time with wear and tear of the spinal column. Arthritic changes of the s pine, a herniated discs, soft tissue swelling and bony growth can all impinge on the formal foramen and compress the nerve. Because the narrowing (stenosis) of the foramen pinches a nerve, the primary symptoms relat ed to this disorder is directly related to that nerve which is affected. This obviously vari es depending on which foramina are involved. The pinched nerve can lead to basically two cl asses of symptoms. Symptoms include pain in the distribution of that nerve as well as numbne ss, tingling and or weakness can occur. Steroids are a very strong anti-inflammatory, this helps reduce pain by reducing swelling. Complications of steroids are bleeding, infection, and an increase of blood sugars if you are diabetic. assisted risk can lead to osteoporosis which is why we limited the number of injections to 3 times per year. With an epidural injection, the nerve root that comes out of the spine and travels down your leg is targeted. The procedure is about 20 minutes long . You will lie on your back while x-rays are taken. Once the region is marked, it is numbe d and then injected with steroids. 2) physical therapy 3) Weak multifidis muscle, longissamis muscle 4) follow up in 8 weeks Follow-up at the hospital thirty minutes before your scheduled procedure to allow for time to check in. You may eat and drink as usual on the day of the procedure. If you are scheduled for an epidural injection do not take any blood thinning medications f or at least 5-7 days prior to your procedure unless you have been instructed by another phys ician not to discontinue blood thinning medications. If you are having a procedure other than an epidural injection (i.e. facet injection, media l branch block, SI joint injection or other joint injection) it is not absolutely necessary to discontinue blood thinning medications but doing so will decrease the risk of bruising or bleeding. If you have had a prior stroke, DVT or PE or if you are taking blood thinning medication be cause you have atrial fibrillation, a prosthetic cardiac valve replacement or heart stenting do not stop taking your blood thinning medications unless you have permission from your car diologist or primary care provider. All other medications should be taken as usual on the day of the procedure. Common blood thinning medications include: Aspirin (a baby aspirin is o.k.) Ibuprofen (Advil or Motrin) Naproxen (Aleve) Nabumetone (Relafen) Clopidogrel (Plavix) Dipyridamole/ASA (Aggrenox) Warfarin (Coumadin) Dabigatran (Pradaxa) Rivaroxaban (Xarelto) There are many others. If you have questions about your medications and whether or not you should stop any medications please contact our office. If you are having an epidural injection or if you take any medication for relaxation/sedati on on the day of the procedure you must provide a subway train driver to take you home. For all procedur es it is recommended that someone else drive you home. documented in this encounter Progress Notes Josy Santana PA-C - 07/25/2015 3:09 PM PSTFormatting of this note might be differe nt from the original. CHIEF COMPLAINT: Chief Complaint Patient presents with Back Pain low left sided back pain HISTORY OF PRESENT ILLNESS: The patient is a 49 y.o. male being seen today for complaints of left sided low back pain that began approximately five years ago after a long Triptelligent ing session. He reports his pain is to the left lower lumbar region with radiation into the left buttocks. Since the symptoms began, he has noticed that symptoms have been no improving, staying the same. He describes the pain as a aching and throbbing feeling. He rates the pain as severe. His symptoms worsen with sitting, bending, twisting. His symptoms improve with rest, lying flat on his back. The patient also describes leg symptoms that occur on his left side. The leg symptoms acco unt for greater than or equal to 50% of his symptoms. The leg symptoms are intermittent and the symptoms travels from the left low back into the left buttocks. The patient does not describe numbness of the legs. He does not report weakness of the le gs. He does not have bowel and bladder dysfunction. He does not have saddle anesthesia. He has tried PT, Massage, Chiropractic, Opioids, NSAIDS, Steroids, Injections, Muscle relax ers and Accupuncture. The patient is currently taking Tylenol 3, and tramadol. The patient has received facet steroid injection of the left L4/L5 facet joints at [place] [facility], this was done 12/27/2014 he received excellent relief with this and so a RFA pr ocedure of the left L4/L5 facet joint was done 02/09/2015, unfortunately the patient did not relief any relief to this procedure and was having more left buttocks pain, so a left pirifo rmis injection was performed 03/15/2015 which again gave him no relief. Patient's medications, allergies, past medical, surgical, social and family histories were reviewed and updated as appropriate. PAST MEDICAL HISTORY: Past Medical History Diagnosis [...] Surgical History Procedure Laterality Date Facet neurotomy [facility] Injection foramen epidural l/s Injection lumbar/sacral CURRENT [...] RELATION Hypertension Other UNKNOWN RELATION REVIEW OF SYSTEMS: GENERALLY: No fever, chills, no night sweats, no weight gain, no weight loss, no anemia, no fatigue. EYES: No eye problems, no impaired sight, + eye glasses/contacts, no eye injury, no double vision, no transient blindness. EARS, NOSE, THROAT and MOUTH: No change in sense taste/smell, no hearing difficulty, no ri nging in ears, no drainage from ears, no ear injury, no dizziness, no voice change, no diffi culty swallowing, no snoring, no sleep apnea/CPAP, no sinus trouble, no dental work. NEUROMUSCULAR: No numbness/pain of arms, no numbness/pain of legs, no awake with numbness/ pain, no weakness, + muscle aching, no coordination difficulty, + change in walk, no head in jury, no neck injury, + back injury, no pain in neck, no pain in back, no stroke, no faintin g spells, no loss of consciousness, no tremor/shaking, no seizures, no headaches, no migrain es, no memory loss, no speech difficulty, no confusion, no numbness of face. PSYCHIATRIC: No depression, no difficulty sleeping, no anxiety, no bipolar disorder. CARDIOVASCULAR/PULMONARY: No heart attack, no heart murmur, no fluttering heart, no shortn ess of breath, no cough, no Tuberculosis, no chest pain, no swelling ankles, no bloody cough ing, no asthma, no COPD/emphysema. GASTROINTESTINAL: No bowel disease, no nausea/vomiting, no rectal bleeding/hemorroids, no constipation, no fecal/stool incontinence, no liver/gallbladder disease, no abdominal pain. KIDNEY DISEASE: No frequent urination, no painful/difficult with urination, + urinary incon tinence, no bladder problems, no impotence, no irregular period, no vaginal discharge. ENDOCRINE: No diabetes, no thyroid disease, no osteoporosis/osteopenia, no drainage from br easts. INTEGUMENTARY/SKIN: No lump in breasts, no skin disease or skin changes, no rash/itch. HEMATOLOGIC: No enlarged lymph nodes, no ease or unusual bleeding, no cancer. RHEUMATOLOGIC: No joint pain/arthritis, no Rheumatoid Arthritis PHYSICAL EXAMINATION: Filed Vitals: 07/25/15 1509 BP: 114/82 Pulse: 107 PainSc: 8 PainLoc: Back Body mass index is 31.39 kg/(m^2). GENERAL: The patient is well developed and well nourished. He does appear uncomfortable wh en seated. HEENT: HEAD/FACE: EYES: EARS: NASOPHARNYX: OROPHARNYX: Normocephalic and atraumatic. There are no areas of recent trauma. Normal sclerae without icterus. No drainage or tenderness. Clear without drainage. Clear without erythema. SKIN Limited skin exam shows no significant rashes or lesions. There are not scars in the lumbar region. CHEST: The patient is in no acute respiratory distress with unlabored respirations. HEART: There is not lower extremity edema. ABDOMEN: The patient is not overweight. NEUROLOGIC: The patient is awake, alert, and oriented to time, place, person. He follows simple and complex commands. His speech is fluent. He comprehends speech well. He has no apparent deficits with short or machine long goods helper memory. He has appropriate fund of knowledge Cranial nerves 2-12 appear grossly intact. Sensory exam does not show diminished sensation to light touch in the lower extremities. REFLEX: RIGHT LEFT PATELLAR 2+ 2+ ACHILLES 2+ 2+ MUSCULOSKELETAL There is no major palpable deformity of the spine. Straight leg raise and slump-sit are negative. Zeke's maneuver and impingement testing were negative for any groin pain. There was no tenderness to palpation over the greater tr ochanters, there was some tenderness to the left SI joint. The patient localized the majorit y of the pain to the left L4/L5 region and into the left buttocks. Lumbar facet loading was negative. Strength testing showed 5/5 strength throughout the lower extremities. The ninfa ent was able to heel and toe walk without difficulty. There was no redness, effusion, warmt h or joint line tenderness in the knees or ankles. RADIOGRAPHIC REVIEW: The patient's imaging was reviewed in detail with the patient today during the visit. The images from lumbar MRI 05/29/2015 show 2015 shows lumbar DDD, with spinal stenosis at L3/L4 a nd L4/L5, this is a moderate level, he has severe facet arthritis with hypertrophy to the le ft L4/L5 facet joints. The radiologist notes the patient has atrophy of the multifidus musc le on the left. MRI of the pelvic region from the same date shows edema in the left paraspi nous muscle affecting the left multifidus and iliocostalis and longissimus muscles. ASSESSMENT: 1. Chronic low back pain 2. DDD (degenerative disc disease), lumbar 3. Spinal stenosis of lumbar region 4. Facet arthritis of lumbar region 5. Atrophy of the lumbar extensor muscles PLAN: 1. We discussed participating in physical therapy, he already has a prescription for this and have participated in one session. I encouraged him to continue with this and the home e xercise program. 2. We discussed steroid injections, it's possible more of his pain is coming from the spin al stenosis that is a moderate level at L3/L4 and L4/L5. He may gain much benefit from an e pidural injection. I have ordered a left L4/L5 TFESI to be done once insurance approves thi s. 3. I will review his case with Dr. Morelos to discuss other options. 4. He will follow up in 8 weeks. ELECTRONICALLY SIGNED BY: Josy Santana PA-C, 07/25/2015 CC: FRANCOIS Golden documented in t his encounter Plan of Treatment Not on filedocumented as of this encounter Procedures + +--------+ + + + | Procedure Name | Priori | Date/Time | Associated Diagnosis | Comments | | | ty | | | | + +--------+ + + + | IMAGING REPORT - | | 08/01/2015 | | Results for this | | EXTERNAL SCAN | | 12:00 AM | | procedure [...] radiculopathy ICD-10 Code M54.16 Gianfranco Rodriguez | [facility] | | presents to the fluoroscopy suite for a fluoroscopically-guided [facility] | | L4-L5 transforaminal epidural steroid [...] ST. | [address] | [place], [place] | [phone] | | [facility] | | [address] | | | - IMAGING | | | | + + + + + IMAGING REPORT - EXTERNAL SCAN (08/01/2015 12:00 AM PST) + + + | Narrative | Performed At | + + + | Ordered by an | | | unspecified provider. | | + + + documented in this encounter Visit Diagnoses + + | Diagnosis | + + | Chronic low back pain - Primary Lumbago | + + | DDD (degenerative [...]
--- OUTSIDE RECORDS SUMMARY | ~2019-07-05 | XMS | Encounter Summary ---
Demographics + + + | Address | [address] | | | [place] [address] | + + + | Home Phone | | + + + | Preferred Language | Unknown | + + + | Marital Status | | + + + | Jewish Affiliation | Unknown | + + + | Race | Unknown | + + + | Ethnic Group | Unknown | + + + Author + + + | Author | [facility] | | | and [place] | + + + | Organization | [facility] | | [...] Team Providers + +------+ + | Care Accounts Payable Professional Name | Role | Phone | [...] [address] | | | | | [phone] | [place] [address] | | +--------+ + + + + [...] for comparison only - no result from [place]. | [facility] | + + + + +---------+ + + | Performing | Address | City/State/Zipcode | Phone Number | | Organization | | | | + +---------+ + + | [facility] | | | | + +---------+ + + documented in this encounter Visit Diagnoses Not on filedocumented in this encounter"
--- OUTSIDE RECORDS SUMMARY | ~2019-07-05 | XMS | Encounter Summary ---
Demographics + + + | Address | [address] | | | [place] [address] | + + + | Home Phone | | + + + | Preferred Language | Unknown | + + + | Marital Status | | + + + | Restorationist Affiliation | Unknown | + + + | Race | Unknown | + + + | Ethnic Group | Unknown | + + + Author + + + | Author | [facility] | | | and [place] | + + + | Organization | [facility] | | [...] Team Providers + +------+ + | Care Lacquer Mixer Name | Role | Phone | + +------+ + | Kanika Dominguez PA-C | PCP | | + +------+ + Encounter Details +--------+ + + + + | Date | Type | Department | Care Team | Description | +--------+ + + + + | 05/07/ | Orders Only | [facility] [place] | Ramón Lobato, | History of tobacco | | 2017 | | ORTHOPEDIC SURGERY | MD [address] | use (Primary Dx); | | | | [address] [facility] | [place] | Preop testing; | | | | [place] | [address] | Bicipital tendinitis | | | | [address] | | of left shoulder; | | | | [phone] | | Rotator cuff | | | | | | syndrome of left | | | | | | shoulder | +--------+ + + + + [...] of this encounter Plan of Treatment + +------+--------+ + + | Name | Type | Priori | Associated Diagnoses | Order Schedule | | | | ty | | | + +------+--------+ + + | Nicotine and | Lab | Routin | Preop testing | Expected: | | Metabolites | | e | Bicipital tendinitis | 05/25/2017, Expires: | | | | | of left shoulder | 05/07/2018 | | | | | Rotator cuff | | | | | | syndrome of left | | | | | | shoulder History of | | | | | | tobacco use | | + +------+--------+ + + documented as of this encounter Visit Diagnoses + + | Diagnosis | + + | History of tobacco use - Primary Personal history of tobacco use, presenting hazards | | to health | + + | Preop testing Preoperative examination, unspecified | + + | Bicipital tendinitis of left shoulder Bicipital tenosynovitis | + + | Rotator cuff syndrome of left shoulder Disorders of bursae and tendons in shoulder | | region, unspecified | + + documented in this encounter"
--- OUTSIDE RECORDS SUMMARY | ~2019-07-05 | XMS | Encounter Summary ---
Demographics + + + | Address | [address] | | | [place] [address] | + + + | Home Phone | | + + + | Preferred Language | Unknown | + + + | Marital Status | | + + + | Oriental Orthodox Affiliation | Unknown | + + + | Race | Unknown | + + + | Ethnic Group | Unknown | + + + Author + + + | Author | [facility] | | | and [place] | + + + | Organization | [facility] | | | [...] Team Providers + +------+ + | Care Honing Job Setter Name | Role | Phone | + +------+ + PCP | Unavailable | + +------+ + Encounter Details +--------+ + + + + | Date | Type | Department | Care Team | Description | +--------+ + + + + | 05/28/ | Hospital | [facility] | | | | 2010 | Encounter | MED CTR XRAY [address] | | | | | | [address] | | | | | | [place] [address] | | | | | | [phone] | | | +--------+ + + + [...] Performed At | + + + | [facility] | MD JESSE | | [address] [facility] | [facility] | | MRI OF PELVIS WITHOUT CONTRAST: [...] Transcribed Date/Time: 05/29/2011 | | | 08:59 Log Sorting Supervisor: <Electronically Signed by Gideon Joseph | | | MD Kajal> 05/29/11 1219 | | + + + + + | Procedure Note | + + | Baron, Wilian Conversion - 07/29/2013 4:21 PM [facility] | | Diagnostic Imaging Department [address] [facility] Josey [address] MD | | MRI OF PELVIS WITHOUT CONTRAST: [...] 08:52 | |Transcribed Date/Time: 05/29/2011 08:59 | |Log Sorting Supervisor: | |<Electronically Signed by Gideon Rdz MD> [...] Performed At | + + + | [facility] | [facility] | | [address] [facility] | [facility] | | LUMBAR SPINE MR WITHOUT CONTRAST [...] Transcribed Date/Time: 05/29/2011 09:01 | | | Log Sorting Supervisor: <Electronically Signed by Gideon Rdz, | | | MD> 05/29/11 1219 | | + + + + + | Procedure Note | + + | Baron, Wilian Conversion - 07/29/2013 4:21 PM [facility] | | Diagnostic Imaging Department [address] [facility] | | LUMBAR SPINE MR WITHOUT CONTRAST [...] 08:52 | |Transcribed Date/Time: 05/29/2011 09:01 | |Log Sorting Supervisor: | |<Electronically Signed by Gideon Rdz MD> [...]
--- OUTSIDE RECORDS SUMMARY | ~2019-07-05 | XMS | Encounter Summary ---
Demographics + + + | Address | [address] | | | [place] [address] | + + + | Home Phone | | + + + | Preferred Language | Unknown | + + + | Marital Status | | + + + | Mu-Ism Affiliation | Unknown | + + + | Race | Unknown | + + + | Ethnic Group | Unknown | + + + Author + + + | Author | [facility] | | | and [place] | + + + | Organization | [facility] | | [...] Team Providers + +------+ + | Care Stock Sheets Cleaner Inspector Name | Role | Phone | + +------+ + | Kanika Dominguez PA-C | PCP | | + +------+ + Encounter Details +--------+---------+ + + + | Date | Type | Department | Care Team | Description | +--------+---------+ + + + | 10/01/ | Office | [facility] [place] | Ramón Lobato, | Postop check | | 2018 | Visit | ORTHOPEDIC SURGERY | MD Babatunde [address] | (Primary Dx) | | | | [address] [facility] | [place] | | | | | [place] | [address] | | | | | [address] | | | | | | [phone] | | | +--------+---------+ + + + [...]
--- OUTSIDE RECORDS SUMMARY | ~2019-07-05 | XMS | Encounter Summary ---
Demographics + + + | Address | [address] | | | [place] [address] | + + + | Home Phone | | + + + | Preferred Language | Unknown | + + + | Marital Status | | + + + | Uatsdin Affiliation | Unknown | + + + | Race | Unknown | + + + | Ethnic Group | Unknown | + + + Author + + + | Author | [facility] | | | and [place] | + + + | Organization | [facility] | | | and [...] Team Providers + +------+ + | Care Tie Binder Name | Role | Phone | + [...] | unspecified | [address] | [place], | | | | | chronicity, | [place] | [place] [address] | | | | | unspecified | [address] | Phone: | | | | | laterality | Phone: | [phone] | | | | | | [phone] | Fax: | | | | | | Fax: | [phone] | | | | | | [phone] | | +--------+ + + + + + Reason for Visit +--------+ + | Reason | Comments | +--------+ + | Other | recommendation | +--------+ + Encounter Details +--------+ + + + + | Date | Type | Department | Care Team | Description | +--------+ + + + + | 08/27/ | Telephone | [facility] | Uday Quezada, | Other | | 2017 | | NEUROSURGERY [address] | DO [address] | (recommendation) | | | | [address] | [address] [place] | | | | | [place] | [address] | | | | | [address] | | | | | | [phone] | | | +--------+ + + + [...] + +------+---+---+ + + | Comments: QUIT 10/1/10 Started [...] + + +--------+ + + | * [facility] [place] | Outpatient | Routin | Shoulder Pain, | Ordered: 09/05/2016 | | Orthopedic Surgery - | Referral | e | Unspecified | | | AMB Referral | | | Chronicity, | | | | | | Unspecified | | | | | | Laterality | | + + +--------+ + + documented as of this encounter Visit Diagnoses + + | Diagnosis | + + | Shoulder pain, unspecified chronicity, unspecified laterality - Primary | + + documented in this encounter"
--- OUTSIDE RECORDS SUMMARY | ~2019-07-05 | XMS | Encounter Summary ---
Demographics + + + | Address | [address] | | | [place] [address] | + + + | Home Phone [...] Team Providers + +------+ + | Care Gunsmith Apprentice Name | Role | Phone | + +------+ + | Kanika Dominguez PA-C | PCP | | + +------+ + Encounter Details +--------+ + + + + | Date | Type | Department | Care Team | Description | +--------+ + + + + | 04/23/ | Hospital | [facility] | Conversion | Pain | | 2016 | Encounter | CONVERSION [address] | Transaction, | | | | | [address] | Provider Unknown | | | | | [place] | | | | | | [address] | (Fax) | | | | | [phone] | | | +--------+ + + + [...] CT LUMBAR SPINE WO | Routin | 08/29/2014 | | Results for this | | CONTRAST | e | 11:24 PM | | procedure are in the | | | | PDT | | results section. | + +--------+ + + + documented in this encounter Results CT Lumbar Spine wo Contrast (08/29/2014 11:24 PM PDT) + + | Specimen | [...]
--- OUTSIDE RECORDS SUMMARY | ~2019-07-05 | XMS | Encounter Summary ---
Demographics + + + | Address | [address] | | | [place] [address] | + + + | Home Phone | | + + + | Preferred Language | Unknown | + + + | Marital Status | | + + + | Protestant Affiliation | Unknown | + + + | Race | Unknown | + + + | Ethnic Group | Unknown | + + + Author + + + | Author | [facility] | | | and [place] | + + + | Organization | [facility] | | | [...] Team Providers + +------+ + | Care Electromatic Typist Name | Role | Phone | + [...] | | | | pain, | [address] | [place] | | | | | unspecified | [place] | MEDICAL | | | | | back pain | [facility] | [place] [address] | | | | | laterality, | [address] | [place] | | | | | unspecified | [place], | [place], | | | | | chronicity, | [place] | [place] [address] | | | | | with | [address] | Phone: | | | | | sciatica | Phone: | [phone] | | | | | presence | [phone] | Fax: | | | | | unspecified | Fax: | [phone] | | | | | Procedures | [phone] | | | | | | MRI [...] | | | | back pain | [facility] | [place] [address] | | | | | laterality, | [address] | [place] | | | | | unspecified | [place], | [place], | | | | | chronicity, | [place] | [place] [address] | | | | | with | [address] | Phone: | | | | | sciatica | Phone: | [phone] | | | | | presence | [phone] | Fax: | | | | | unspecified | Fax: | [phone] | | | | | Procedures | [phone] | | | | | | MRI Lumbar | | | | | | | Spine wo | | | | | | | Contrast | | | +--------+--------+ + + + + Encounter Details +--------+ + + + + | Date | Type | Department | Care Team | Description | +--------+ + + + + | 11/24/ | Hospital | [facility] | Kanika Dominguez | Low back pain, | | 2018 | Encounter | MED CTR MRI [address] | [address] | unspecified back | | | | [place], | [address] [facility] | pain laterality, | | | | [place] [address] | [address] [place], [place] | unspecified | | | | [phone] | [address] | chronicity, with | | | | | [phone] | sciatica presence | | | | [...]
--- OUTSIDE RECORDS SUMMARY | ~2019-07-05 | XMS | Encounter Summary ---
Demographics + + + | Address | [address] | | | [place] [address] | + + + | Home Phone | | + + + | Preferred Language | Unknown | + + + | Marital Status | | + + + | Synagogue Affiliation | Unknown | + + + | Race | Unknown | + + + | Ethnic Group | Unknown | + + + Author + + + | Author | [facility] | | | and [place] | + + + | Organization | [facility] | | [...] Team Providers + +------+ + | Care Kitchen Stewardess Name | Role | Phone | + [...] + + | 10/01/ | [facility] | [facility] | Uday Quezada, | Spondylolisthesis, | | 2016 | Visit | NEUROSURGERY [address] | DO [address] | lumbar region | | | | [address] | [address] [place], [place] | (Primary Dx); Lumbar | | | | [place], [place] | [address] | stenosis; Lumbar | | | | [address] | | radicular pain; | | | | [phone] | | Chronic low back | | [...] - 10/02/2015 9:29 AM PDT.Please follow-up with the [facility] primary care physician for preoperative clearance. Please present for surgery when scheduled. documented in this encounter Progress Notes Uday Quezada DO - 10/02/2015 9:30 AM PDTFormatting of this note might be different fro m the original. Uday Quezada, DO [address] [facility], [address] [place], [place] [address] FAX: NEUROSURGERY HISTORY AND PHYSICAL EXAMINATION CHIEF COMPLAINT: Chief Complaint Patient presents with Follow-up Discuss surgery HISTORY OF PRESENT ILLNESS: The patient is a 49 y.o. male with the complaint of back pain symptoms that began around 2008. Pain came on after doing long extended sessions of [employer] dancing. He also participated in [employer] for many years. The patient describes low [...] has no apparent deficits with short or chcf memory. CRANIAL NERVES: II: Acuity is intact. [...] Intrinsics 5 5 Ulnar Intrinsics 5 5 Bakery Associate Strength 5 5 Hip Flexion 5 5 [...]
--- OUTSIDE RECORDS SUMMARY | ~2019-07-05 | XMS | Encounter Summary ---
Demographics + + + | Address | [address] | | | [place] [address] | + + + | Home Phone | | + + + | Preferred Language | Unknown | + + + | Marital Status | | + + + | Holiness Affiliation | Unknown | + + + | Race | Unknown | + + + | Ethnic Group | Unknown | + + + Author + + + | Author | [facility] | | | and [place] | + + + | Organization | [facility] | | | and [...] Team Providers + +------+ + | Care Tip Mender Name | Role | Phone | + +------+ + | Kanika Dominguez PA-C | PCP | | + +------+ + Encounter Details +--------+---------+ + + + | Date | Type | Department | Care Team | Description | +--------+---------+ + + + | 08/20/ | Office | [facility] | Ramón Lobato, | Complete tear of | | 2018 | Visit | ORTHOPEDIC SURGERY | [address] | left rotator cuff | | | | [address] [facility] | [place] | (Primary Dx) | | | | [place] | [address] | | | | | [address] | | | | | | [phone] | | | +--------+---------+ + + + [...]
--- OUTSIDE RECORDS SUMMARY | ~2019-07-05 | XMS | Encounter Summary ---
Demographics + + + | Address | [address] | | | [place] [address] | + + + | Home Phone | | + + + | Preferred Language | Unknown | + + + | Marital Status | | + + + | Latter-Day Affiliation | Unknown | + + + | Race | Unknown | + + + | Ethnic Group | Unknown | + + + Author + + + | Author | [facility] | | | and [place] | + + + | Organization | [facility] | | | [...] Team Providers + +------+ + | Care Unix System Administrator Name | Role | Phone | + [...] | | | | | | | UT SHLDR | | | | | | | ARTHROSCOP,E | | | | | | | XTEN DEBRIDE | | | | | | | UT REPAIR | | | | | | | ROTATOR | | | | | | | CUFF,CHRONIC | | | | | | | UT PARTIAL | | | | | | | REMOVAL, | | | | | | | CLAVICLE UT | | | | | | | PARTIAL | | | | | | | REMOVAL/REPA | | | | | | | IR,ACROMION | | | | | | | UT REPAIR | | | | | | [...] + + | 09/02/ | [facility] | [facility] | Ramón Lobato, | Left Shoulder Open | | 2018 | | MED CTR OR INTRA OP | MD Fine [facility] | Rotator Cuff Repair, | | | | [address] | [place] | Acromioplasty, and | | | | [place] | [address] | Distal Clavicle | | | | [address] | | Excision w/ Biceps | | | | [phone] | | Tendodesis | +--------+---------+ + + [...] torso to move your arm in a brevig mission as it hangs straight down, make circles with your hand first in one direction, then the other. After surgery, rest your arm and relax for the rest of day. If you had general anesthesia (were put to sleep for the procedure), don t operate pow er tools or machinery, drink alcohol, or make any major decisions for at [id number] af ter surgery. Wear your sling, brace, [...] move your affecte d arm in a brevig mission. First [id number] in one direction. Then [id number] in the other direction. Repeat the pendulum exercise avhmt0oyuq(s)while you are awake. When you feel ready , increase the number of circles to 50 in each direction rvkxd6wssv(s). Incision care Check your incision daily for [...] your shoulder to reduce swelling for the [id number]. Leave the ice pack on for 20minutes; then take it off [id number]. Repeat as needed. Take your temperature daily [id number] your surgery. Report a fever . 4F(38C) to your doctor. Fever may be [...] incision Nausea or vomiting Date Last Reviewed: 12/21/201519999194-8346 [employer]. [address] [place] [address]. All righ ts reserved. This information is [...]
--- OUTSIDE RECORDS SUMMARY | ~2019-07-05 | XMS | Encounter Summary ---
Demographics + + + | Address | [address] | | | [place] [address] | + + + | Home Phone | | + + + | Preferred Language | Unknown | + + + | Marital Status | | + + + | Episcopal Affiliation | Unknown | + + + | Race | Unknown | + + + | Ethnic Group | Unknown | + + + Author + + + | Author | [facility] | | | and [place] | + + + | Organization | [facility] | | [...] Team Providers + +------+ + | Care Engineering Technology Instructor Name | Role | Phone | + [...] | Lumbar | Tamy, | [address] | | | | | radiculopath | Jamaal Akbar MD | [place], | | | | | y | [address] | [place] | | | | | Procedures | [place] [address] | [address] | | | | | AR INJECT | [place], [place] | Phone: | | | | | ANES/STEROID | [address] | [phone] | | | | | FORAMEN | Phone: | Fax: | | | | | LUMBAR/SACRA | [phone] | [phone] | | | | | L W IMG | Fax: | | | | | | GUIDE ,1 | [phone] | | | | | | LEVEL AR | | | | | | | [...] + + | 10/29/ | Hospital | [facility] | Esther, | Left lumbar | | 2016 | Encounter | MED CTR XRAY [address] | [address] | radiculopathy | | | | [place] | [facility], [address] | (Primary Dx); | | | | [place] [address] | [place] [address] | Chronic low back | | | | [phone] | [phone] | pain; DDD | | | | | | (degenerative disc | | | | | Well[facility], [facility] | disease), lumbar; | | | [...] radiculopathy ICD-10 Code M54.16 Gianfranco Rodriguez | [facility] | | presents to the fluoroscopy suite for a fluoroscopically-guided [facility] | | L4-L5 transforaminal epidural steroid injection [...] + | [address] | [address] | [place] | [phone] | | [facility] | | [address] | | | - IMAGING | | [...]
--- OUTSIDE RECORDS SUMMARY | ~2019-07-05 | XMS | Encounter Summary ---
Demographics + + + | Address | [address] | | | [place] [address] | + + + | Home Phone | | + + + | Preferred Language | Unknown | + + + | Marital Status | | + + + | Yazidism Affiliation | Unknown | + + + | Race | Unknown | + + + | Ethnic Group | Unknown | + + + Author + + + | Author | [facility] | | | and [place] | + + + | Organization | [facility] | | | [...] Team Providers + +------+ + | Care Luggage Liner Name | Role | Phone | + +------+ + | Kanika Dominguez PA-C | PCP | | + +------+ + Encounter Details +--------+ + + + + | Date | Type | Department | Care Team | Description | +--------+ + + + + | 04/23/ | Hospital | [facility] | Conversion | Pain | | 2016 | Encounter | CONVERSION DE[address] | Transaction, | | | | | [address] | Provider Unknown | | | | | [place] | | | | | | [address] | (Fax) | | | | | [phone] | | | +--------+ + + + [...]
--- OUTSIDE RECORDS SUMMARY | ~2019-07-05 | XMS | Encounter Summary ---
Demographics + + + | Address | [address] | | | [place] [address] | + + + | Home Phone | | + + + | Preferred Language | Unknown | + + + | Marital Status | | + + + | Restorationism Affiliation | Unknown | + + + [...] Team Providers + +------+ + | Care Executive Director Sheltered Workshop Name | Role | Phone | + [...] | | | | CLINIC [address] | [place] | (Primary Dx) | | | | [place] | [address] | | | | | [address] | | | | | | [phone] | | | +--------+ + + + [...] | | | | ANISA LENZ MD ([id number]) | | | | | | on [...] [address] | [place] | [phone] | | [facility] | | [address] | | | - LABORATORY | | | | + + + + + documented in this encounter Visit Diagnoses + + | Diagnosis | + + | Hypertension, unspecified type - Primary | + + documented in this encounter"
--- OUTSIDE RECORDS SUMMARY | ~2019-07-05 | XMS | Encounter Summary ---
Demographics + + + | Address | [address] | | | [place] [address] | + + + | Home Phone | | + + + | Preferred Language | Unknown | + + + | Marital Status | | + + + | Druze Affiliation | Unknown | + + + | Race | Unknown | + + + | Ethnic Group | Unknown | + + + Author + + + | Author | [facility] | | | and [place] | + + + | Organization | [facility] | | | [...] Team Providers + +------+ + | Care Retail Wireless Sales Consultant Name | Role | Phone | + +------+ + | Kanika Dominguez PA-C | PCP | | + +------+ + Encounter Details +--------+ + + + + | Date | Type | Department | Care Team | Description | +--------+ + + + + | 11/24/ | Hospital | [facility] | Kanika Dominguez | Lumbar radiculopathy | | 2018 | Encounter | MED CTR XRAY [address] | [address] | | | | | [place] | [facility] | | | | | [place] [address] | [address] [place], [place] | | | | | [phone] | [address] | | | | | | [phone] | | | | | | | [...] 2 [place] | Routin | 11/24/2017 | Lumbar | Results for this | | 3 VW | e | 10:22 AM | radiculopathy | procedure are in the | | | | PDT | | results section. | + +--------+ + + + documented in this encounter Results XR Lumbar Spine 2 or 3 Vw (11/24/2017 10:22 AM PDT) + + | Specimen | + + | | + + + + + | Narrative | Performed At | + + + | EXAM:XR LUMBAR SPINE 2 OR 3 VW CLINICAL HISTORY: LUMBAR | [facility] | | RADICULOPATHY ,SPINAL STENOSIS W/FLEXION AND EXTENSION VIEWS | | | COMPARISON: July 02, 2015. FINDINGS: 3 lateral views of the | | | lumbar spine. In the neutral lateral position there is | | | anterolisthesis of L4 by about 2 mm. There is retrolisthesis of L3 | | | by about 5 mm. Slight retrolisthesis of L2. Mild disc narrowing | | | at L3-L4 and L4-L5. Small marginal osteophytes. No compression | | | deformities. Facet arthrosis at L4-L5 and L5-S1. No abnormal | | | translation with flexion or extension. IMPRESSION - | | | Multilevel spondylolisthesis without abnormal translation. Diffuse | | | spondylosis. Dictated and Signed by: Toi Casey MD | | | Electronically signed: 11/24/2017 11:16 AM | | + + + + + | Procedure Note | + + | Baron, Rad Results In - 11/24/2017 11:19 AM PDT EXAM:XR LUMBAR SPINE 2 OR 3 VW | | | | CLINICAL HISTORY: LUMBAR RADICULOPATHY ,SPINAL STENOSIS | | W/FLEXION AND EXTENSION VIEWS | | | | COMPARISON: July 02, 2015. | | | | FINDINGS: 3 lateral views of the lumbar spine. In the neutral lateral position | | there is anterolisthesis of L4 by about 2 mm. There is retrolisthesis of L3 by | | about 5 mm. Slight retrolisthesis of L2. Mild disc narrowing at L3-L4 and | | L4-L5. Small marginal osteophytes. No compression deformities. Facet | | arthrosis at L4-L5 and L5-S1. No abnormal translation with flexion or | | extension. | | | | IMPRESSION - | | | | Multilevel spondylolisthesis without abnormal translation. | | | | Diffuse spondylosis. | | | | Dictated and Signed by: Toi Casey MD | | Electronically signed: 11/24/2017 11:16 AM | + + + +---------+ + + | Performing | Address | City/State/Zipcode | Phone Number | | Organization | | | | + +---------+ + + | [facility] | | | | + +---------+ + + documented in this encounter Visit Diagnoses + + | Diagnosis | + + | Lumbar radiculopathy Thoracic or lumbosacral neuritis or radiculitis, unspecified | + + documented in this encounter"
--- OUTSIDE RECORDS SUMMARY | ~2019-07-05 | XMS | Encounter Summary ---
Demographics + + + | Address | [address] | | | [place] [address] | + + + | Home Phone [...] Team Providers + +------+ + | Care Carriage Rider Name | Role | Phone | + [...] [address] | [address] [place] | Chronic low back | | | | [place], [place] | [address] | pain, unspecified | | | | [address] | | back pain | | | | [phone] | | laterality, with | | | [...] | | | | | | region ([facility]) | +--------+ + + + [...]
--- OUTSIDE RECORDS SUMMARY | ~2019-07-05 | XMS | Encounter Summary ---
Demographics + + + | Address | [address] | | | [place] [address] | + + + | Home Phone | | + + + | Preferred Language | Unknown | + + + | Marital Status | | + + + | Catholic Affiliation | Unknown | + + + | Race | Unknown | + + + | Ethnic Group | Unknown | + + + Author + + + | Author | [facility] | | | and [place] | + + + | Organization | [facility] | | [...] Team Providers + +------+ + | Care Mineral Surveyor Name | Role | Phone | + [...] [address] | [address] | | | | | [place] | [address] | | | | | [address] | | | | | | [phone] | | | +--------+ + + + [...]
--- OUTSIDE RECORDS SUMMARY | ~2019-07-05 | XMS | Encounter Summary ---
Demographics + + + | Address | [address] | | | [place] [address] | + + + | Home Phone | | + + + | Preferred Language | Unknown | + + + | Marital Status | | + + + | Holiness Affiliation | Unknown | + + + | Race | Unknown | + + + | Ethnic Group | Unknown | + + + Author + + + | Author | [facility] | | | and [place] | + + + | Organization | [facility] | | | and [...] Team Providers + +------+ + | Care Sexual Assault Counsellor Name | Role | Phone | + [...] (Primary Dx); | | | | [address] [facility] | [place] | Preop testing; | | | | [place] | [address] | Bicipital tendinitis | | | | [address] | | of left shoulder; | | | | [phone] | | Rotator cuff | | | [...]
--- OUTSIDE RECORDS SUMMARY | ~2019-07-05 | XMS | Encounter Summary ---
Demographics + + + | Address | [address] | | | [place] [address] | + + + | Home Phone | | + + + | Preferred Language | Unknown | + + + | Marital Status | | + + + | Adventism Affiliation | Unknown | + + + [...] Team Providers + +------+ + | Care Wardrobe Specialist Name | Role | Phone | + +------+ + | Kanika Dominguez PA-C | PCP | | + +------+ + Encounter Details +--------+ + + + + | Date | Type | Department | Care Team | Description | +--------+ + + + + | 06/05/ | Orders Only | [facility] | Ramón Lobato, | History of tobacco | | 2017 | | ORTHOPEDIC SURGERY | MD Babatunde FIELDS | use (Primary Dx); | | | | [address] [facility] | [place] | Preoperative | | | | [place] | [address] | clearance | | | | [address] | | | | | | [phone] | | | +--------+ + + + [...] Nicotine and | Lab | Routin | History of tobacco | weekly for 4 | | Metabolites | | e | use Preoperative | Occurrences starting | | | | | clearance | 06/05/2017 until | | | | | | 06/05/2018 | + +------+--------+ + + documented as of this encounter Visit Diagnoses + + | Diagnosis | + + | History of tobacco use - Primary Personal history of tobacco use, presenting hazards | | to health | + + | Preoperative clearance Preoperative examination, unspecified | + + documented in this encounter"
--- OUTSIDE RECORDS SUMMARY | ~2019-07-05 | XMS | Clinical Summary ---
Demographics + + + | Address | [address] | | | [place] [address] | + + + | Home Phone | | + + + | Preferred Language | Unknown | + + + | Marital Status | Unknown | + + + | Yarsanism Affiliation | Unknown | + + + | Race | Unknown | + + + | Ethnic Group | Unknown | + + + Author + + + | Author | [facility] (Historical as of | | | 02-05-19) | + + + | Organization | [facility] (Historical as of | | | 02-05-19) | + + + | Address | Unknown | + + + | Phone | Unavailable | + + + Support + + + + + | Name | Relationship | Address | Phone | + + + + + | Amanda Medina | ECON | [address] | | | | | [place], [place] | | | | | [address] | | + + + + + Care Team Providers + +------+ + | Care Pension Examiner Name | Role | Phone | [...] | | + +--------+ +------+-------+ + | [facility] | YELLOW | [id number] | | | | | PLANS | [place] | | | | | + +--------+ +------+-------+ + | MEDICAID | [place] | [id number] | | | [address] | | | N | | | | [place] | | | [place] | | | | [address] | | | DRUPAL ARCHITECT | | | | | + +--------+ [...] | Self [birth year] Home: | [address] | | | al/Fam | | [phone] | [phone] | [place] [address] | | | cristina | | | [address] | | + +--------+ +--------+ + +"
--- OUTSIDE RECORDS SUMMARY | ~2019-07-05 | XMS | Encounter Summary ---
Demographics + + + | Address | [address] | | | [place] [address] | + + + | Home Phone [...] Team Providers + +------+ + | Care Bookkeeper Assistant Name | Role | Phone | [...] [address] | [address] [place], [place] | | | | | [place] | [address] | | | | | [address] | | | | | | [phone] | | | +--------+ + + + [...]
--- OUTSIDE RECORDS SUMMARY | ~2019-07-05 | XMS | Encounter Summary ---
Demographics + + + | Address | [address] | | | [place] [address] | + + + | Home Phone [...] + | Author | [facility] | | | and [place] | + + + | Organization | [facility] | | | and [...] Team Providers + +------+ + | Care Outpatient Interviewing Clerk Name | Role | Phone | + +------+ + | Kanika Dominguez PA-C | PCP | | + +------+ + Encounter Details +--------+ + + + + | Date | Type | Department | Care Team | Description | +--------+ + + + + | 11/26/ | Imaging | [facility] | Provider, | | | 2017 | Exam | MED CTR EXTERNAL | MD [address] | | | | | IMAGING | [address] | | | | | [phone] | [place] [address] | | +--------+ + + + + [...] + +--------+ + + + | XR SHOULDER LEFT 2 + | Routin | 08/15/2016 | | Results for this | | VW | e | 2:55 PM | | procedure are in the | | | | PST | | results section. | + +--------+ + + + documented in this encounter Results XR Shoulder Left 2 + Vw (08/15/2016 2:55 PM PST) + + | Specimen | + + | | + + + + + | Narrative | Performed At | + + + | External films for comparison only - no result from [place]. | [facility] | + + + + +---------+ + + | Performing | Address | City/State/Zipcode | Phone Number | | Organization | | | | + +---------+ + + | [facility] | | | | + +---------+ + + documented in this encounter Visit Diagnoses Not on filedocumented in this encounter"
--- OUTSIDE RECORDS SUMMARY | ~2019-07-05 | XMS | Encounter Summary ---
Demographics + + + | Address | [address] | | | [place] [address] | + + + | Home Phone [...] + + | Author | [facility] | | | and [place] | + + + | Organization | [facility] | | [...] Team Providers + +------+ + | Care Research Staff Member Name | Role | Phone | + +------+ + | Kanika Dominguez PA-C | PCP | | + +------+ + Encounter Details +--------+ + + + + | Date | Type | Department | Care Team | Description | +--------+ + + + + | 01/27/ | Hospital | [facility] | Conversion | Pain | | 2018 | Encounter | CONVERSION DEP [address] | Transaction, | | | | | [facility] | Provider Unknown | | | | | [place] | | | | | | [address] | (Fax) | | | | | [phone] | | | +--------+ + + + [...]
--- OUTSIDE RECORDS SUMMARY | ~2019-07-05 | XMS | Encounter Summary ---
Demographics + + + | Address | [address] | | | [place] [address] | + + + | Home Phone | | + + + | Preferred Language | Unknown | + + + | Marital Status | | + + + | Mormonism Affiliation | Unknown | + + + | Race | Unknown | + + + | Ethnic Group | Unknown | + + + Author + + + | Author | [facility] | | | and [place] | + + + | Organization | [facility] | | | [...] Team Providers + +------+ + | Care Property Developer Name | Role | Phone | [...] + + | 11/06/ | Office | [facility] | Ramón Lobato, | Postop check | | 2018 | Visit | ORTHOPEDIC SURGERY | MD Babatunde FIELDS | (Primary Dx) | | | | [address] [facility] | [place] | | | | | [place] | [address] | | | | | [address] | | | | | | [phone] | | | +--------+---------+ + + + [...]
--- OUTSIDE RECORDS SUMMARY | ~2019-07-05 | XMS | Encounter Summary ---
Demographics + + + | Address | [address] | | | [place] [address] | + + + | Home Phone [...] Team Providers + +------+ + | Care Energy Project Engineer Name | Role | Phone | [...] | | ORTHOPEDIC SURGERY | MD [address] [facility] | | | | | [address] [facility] | [place] | | | | | [place] | [address] | | | | | [address] | | | | | | [phone] | | | +--------+ + + + [...]
--- OUTSIDE RECORDS SUMMARY | ~2019-07-05 | XMS | Encounter Summary ---
Demographics + + + | Address | [address] | | | [place] [address] | + + + | Home Phone [...] Team Providers + +------+ + | Care Stage Driver Name | Role | Phone | + [...] Unknown | encounter | | | | [facility] [place] | [phone] | | | | | [address] | | | | | | [phone] | | | +--------+ + + + [...] + +--------+ + + + | FL FACET INJECTION | Routin | 12/27/2014 | | Results for this | | LUMBAR SACRAL | e | 7:54 AM | | procedure are in the | | | | PDT | | results section. | + +--------+ + + + documented in this encounter Results FL Facet Injection Lumbar Sacral (12/27/2014 7:54 AM PDT) + + | Specimen | + + | | + + + + + | Narrative | Performed At | + + + | This is a non-reportable procedure without a radiologist report and | | | is used for image storage only | | + + + + + | Procedure Note | + + | Baron Wilian Conversion - 02/03/2019 5:12 AM PDT This is a non-reportable procedure | | without a radiologist report and isused for image storage only | + + documented in this encounter Visit Diagnoses + + | Diagnosis | + + | Unknown cause of injury, initial encounter | + + documented in this encounter"
--- OUTSIDE RECORDS SUMMARY | ~2019-07-05 | XMS | Encounter Summary ---
Demographics + + + | Address | [address] | | | [place] [address] | + + + | Home Phone | | + + + | Preferred Language | Unknown | + + + | Marital Status | | + + + | Judaism Affiliation | Unknown | + + + [...] Team Providers + +------+ + | Care Safety Attendant Name | Role | Phone | [...] + | 01/22/ | Telephone | [facility] | Uday Quezada, | Coordination Of Care | | 2018 | | NEUROSURGERY [address] | DO [address] | ([place]) | | | | [address] | [address] [place], [place] | | | | | [place], [place] | [address] | | | | | [address] | | | | | | [phone] | | | +--------+ + + + [...]
--- OUTSIDE RECORDS SUMMARY | ~2019-07-05 | XMS | Encounter Summary ---
Demographics + + + | Address | [address] | | | [place] [address] | + + + | Home Phone | | + + + | Preferred Language | Unknown | + + + | Marital Status | | + + + | Denominational Affiliation | Unknown | + + + | Race | Unknown | + + + | Ethnic Group | Unknown | + + + Author + + + | Author | [facility] | | | and [place] | + + + | Organization | [facility] | | | [...] Team Providers + +------+ + | Care Global Creative Chairman Name | Role | Phone | + [...] | | | | chronicity, | [place] | [place] [address] | | | | | unspecified | [address] | Phone: | | | | | laterality | Phone: | [phone] | | | | | | [phone] | Fax: | | | | | | Fax: | [phone] | | | | | | [phone] | | +--------+ + + + + + Reason for Visit +--------+ + | Reason | Comments | +--------+ + | Other | recommendation | +--------+ + Encounter Details +--------+ + + + + | Date | Type | Department | Care Team | Description | +--------+ + + + + | 08/27/ | Telephone | [facility] | Uday Quezada, | Other | | 2017 | | NEUROSURGERY [address] | DO [address] | (recommendation) | | | | [address] | [address] [place] | | | | | [place] | [address] | | | | | [address] | | | | | | [phone] | | | +--------+ + + + [...]
--- OUTSIDE RECORDS SUMMARY | ~2019-07-05 | XMS | Encounter Summary ---
Demographics + + + | Address | [address] | | | [place] [address] | + + + | Home Phone | | + + + | Preferred Language | Unknown | + + + | Marital Status | | + + + | Moravian Affiliation | Unknown | + + + | Race | Unknown | + + + | Ethnic Group | Unknown | + + + Author + + + | Author | [facility] | | | and [place] | + + + | Organization | [facility] | | | [...] Team Providers + +------+ + | Care Ui Programmer Name | Role | Phone | + +------+ + | Kanika Dominguez PA-C | PCP | | + +------+ + Reason for Visit + + + | Reason | Comments | + + + | Procedure | | + + + Encounter Details +--------+ + + + + | Date | Type | Department | Care Team | Description | +--------+ + + + + | 10/06/ | Telephone | [facility] [place] | Uday Quezada, | Procedure | | 2017 | | NEUROSURGERY [address] | DO [address] | | | | | [address] | [address] [place] | | | | | [place] | [address] | | | | | [address] | | | | | | [phone] | | | +--------+ + + + [...]
--- OUTSIDE RECORDS SUMMARY | ~2019-07-05 | XMS | Encounter Summary ---
Demographics + + + | Address | [address] | | | [place] [address] | + + + | Home Phone | | + + + | Preferred Language | Unknown | + + + | Marital Status | | + + + | Samaritan Affiliation | Unknown | + + + | Race | Unknown | + + + | Ethnic Group | Unknown | + + + Author + + + | Author | [facility] | | | and [place] | + + + | Organization | [facility] | | | [...] Team Providers + +------+ + | Care Public Health Director Name | Role | Phone | [...] | (obstructive | [address] | [place] | | | | | sleep | [facility] [place] | [place], | | | | | apnea) | [place] | [place] [address] | | | | | Procedures | [address] | Phone: | | | | | [place] [facility] | Phone: | [phone] | | | | | STUDY, | [phone] | Fax: | | | | | UNATTENDED, | Fax: | [phone] | | | | | SIMUL RECORD | [phone] | | | | | | HR/O2 [...] + + | 03/02/ | Hospital | [facility] | Basilia Baker MD | Obstructive sleep | | 2017 - | Encounter | MED CTR SLEEP | [address] | apnea | | | | CENTER [address] | [place] | | | 03/03/ | | [place] | [address] | | | 2017 | | [address] | | | | | | [phone] | | | +--------+ + + + [...] [facility] | | | [place] [address] Unattended, | | | Multiparameter, Sleep Apnea [...] 02, 2018 | | | using the GetThison-ICONOGRAFICOden Nomad equipment with PolysmitPaybubble Version 9 | | | Software. The [...] have been | | | created with Scancell voice recognition software. Occasional wrong-word | | [...] this chart may have been created with Scancell voice | | |recognition software. Occasional wrong-word [...] PDT [facility] | | [place], [place] [address]Vhfghinnjf, Multiparameter, Sleep | | Apnea Test for [...] March 02, | | 2017 using the Jostle-Office Maxad equipment with PolysmitPaybubble Version 9 Software. The study | | [...] this chart may have been created with Scancell voice recognition software. Occasional | | wrong-word [...]
--- OUTSIDE RECORDS SUMMARY | ~2019-07-05 | XMS | Encounter Summary ---
Demographics + + + | Address | [address] | | | [place] [address] | + + + | Home Phone | | + + + | Preferred Language | Unknown | + + + | Marital Status | | + + + | Gnosticism Affiliation | Unknown | + + + | Race | Unknown | + + + | Ethnic Group | Unknown | + + + Author + + + | Author | [facility] | | | and [place] | + + + | Organization | [facility] | | [...] Team Providers + +------+ + | Care Flavorings Compounder Name | Role | Phone | + [...] [place] | | | | | | [address] | (Fax) | | | | | [phone] | | | +--------+ + + + [...]
--- OUTSIDE RECORDS SUMMARY | ~2019-07-05 | XMS | Encounter Summary ---
Demographics + + + | Address | [address] | | | [place] [address] | + + + | Home Phone | | + + + | Preferred Language | Unknown | + + + | Marital Status | | + + + | Moravian Affiliation | Unknown | + + + | Race | Unknown | + + + | Ethnic Group | Unknown | + + + Author + + + | Author | [facility] | | | and [place] | + + + | Organization | [facility] | | | [...] Team Providers + +------+ + | Care Boring Machine Operator Production Name | Role | Phone | + [...] [place] | | | | | | [address] | (Fax) | | | | | [phone] | | | +--------+ + + + [...]
--- OUTSIDE RECORDS SUMMARY | ~2019-07-05 | XMS | Encounter Summary ---
Demographics + + + | Address | [address] | | | [place] [address] | + + + | Home Phone | | + + + | Preferred Language | Unknown | + + + | Marital Status | | + + + | Baptism Affiliation | Unknown | + + + | Race | Unknown | + + + | Ethnic Group | Unknown | + + + Author + + + | Author | [facility] | | | and [place] | + + + | Organization | [facility] | | | [...] Team Providers + +------+ + | Care Meter And Regulator Shop Supervisor Name | Role | Phone | [...] [place] | | | | | | [address] | (Fax) | | | | | [phone] | | | +--------+ + + + [...] 4 + | Routin | 07/02/2015 | | Results for this | | VW | e | 9:01 AM | | procedure are in the | | | | PST | | results section. | + +--------+ + + + documented in this encounter Results XR Lumbar Spine 4 + Vw (07/02/2015 9:01 AM PST) + + | Specimen | [...]
--- OUTSIDE RECORDS SUMMARY | ~2019-07-05 | XMS | Encounter Summary ---
Demographics + + + | Address | [address] | | | [place] [address] | + + + | Home Phone [...] Team Providers + +------+ + | Care Change Management Consultant Name | Role | Phone | [...] [address] | | | | | [phone] | [place] [address] | | +--------+ + + + + [...] for comparison only - no result from [place]. | [facility] | + + + + +---------+ + + | Performing | Address | City/State/Zipcode | Phone Number | | Organization | | | | + +---------+ + + | [facility] | | | | + +---------+ + + documented in this encounter Visit Diagnoses Not on filedocumented in this encounter"
--- OUTSIDE RECORDS SUMMARY | ~2019-07-05 | XMS | Encounter Summary ---
Demographics + + + | Address | [address] | | | [place] [address] | + + + | Home Phone [...] Team Providers + +------+ + | Care Photograph Printer Name | Role | Phone | + +------+ + | Kankia Dominguez PA-C | PCP | | + [...] [address] | [address] [place] | | | | | [place] | [address] | | | | | [address] | | | | | | [phone] | | | +--------+ + + + [...]
--- OUTSIDE RECORDS SUMMARY | ~2019-07-05 | XMS | Encounter Summary ---
Demographics + + + | Address | [address] | | | [place] [address] | + + + | Home Phone | | + + + | Preferred Language | Unknown | + + + | Marital Status | | + + + | Presybeterian Affiliation | Unknown | + + + | Race | Unknown | + + + | Ethnic Group | Unknown | + + + Author + + + | Author | [facility] | | | and [place] | + + + | Organization | [facility] | | [...] Team Providers + +------+ + | Care Sheep Herder Name | Role | Phone | + [...] | Sleep | sleep apnea | [address] | [address] | | | | Medicine / | (adult) | [address] | [address] [place] | | | | Sleep | (pediatric) | [place] | [place], [place] | | | | Medicine | [facility] | [address] | [address] Phone: | | | | | RESULTS/YH | [place], | [phone] | | | | | AUTH/AO | [place] | Fax: | | | | | Procedures | [address] | [phone] | | | | | OFFICE VISIT | Phone: | | | | | | EXTENDED | [phone] | | | | | | | Fax: | | | | | | | [phone] | | +--------+--------+ + + + + [...] sleep apnea) | | | | [address] [place] | [place] | (Primary Dx) | | | | [place] [address] | [address] | | | | | [phone] | | | +--------+---------+ + + + [...] 2018 using the Nihon-Kohden Nomad equipment with PolysmitEducerus Version 9 Software. The study was hand [...]
--- OUTSIDE RECORDS SUMMARY | ~2019-07-05 | XMS | Encounter Summary ---
Demographics + + + | Address | [address] | | | [place] [address] | + + + | Home Phone [...] Author | [facility] | | | and [place] | + + + | Organization | [facility] | | [...] Team Providers + +------+ + | Care Yarn Hauler Name | Role | Phone | + [...] Unknown | encounter | | | | [facility] | [phone] | | | | | [address] | | | | | | [phone] | | | +--------+ + + + [...]
--- OUTSIDE RECORDS SUMMARY | ~2019-07-05 | XMS | Encounter Summary ---
Demographics + + + | Address | [address] | | | [place] [address] | + + + | Home Phone | | + + + | Preferred Language | Unknown | + + + | Marital Status | | + + + | Jehovah'S Witness Affiliation | Unknown | + + + | Race | Unknown | + + + | Ethnic Group | Unknown | + + + Author + + + | Author | [facility] | | | and [place] | + + + | Organization | [facility] | | | [...] Providers + +------+ + | Care Shipping Receiving Clerk Name | Role | Phone | + +------+ + PCP | Unavailable | + +------+ + Encounter Details +--------+ + + + + | Date | Type | Department | Care Team | Description | +--------+ + + + + | 03/18/ | Hospital | [facility] | Gianfranco Tejada, | | | 1995 | Encounter | [facility]ART MED CTR | [address] | | | | | EMERGENCY CENTER | [place] [address] | | | | | [address] | [phone] | | | | | [place] | | | | | | [address] | | | | | | [phone] | | | +--------+ + + + [...]
--- OUTSIDE RECORDS SUMMARY | ~2019-07-05 | XMS | Encounter Summary ---
Demographics + + + | Address | [address] | | | [place] [address] | + + + | Home Phone | | + + + | Preferred Language | Unknown | + + + | Marital Status | | + + + | Mormon Affiliation | Unknown | + + + [...] Team Providers + +------+ + | Care Cyber Intel Planner Name | Role | Phone | + [...] | | region | [place], | [address] Phone: | | | | | Lumbar | [place] [address] | [phone] | | | | | radiculopath | Phone: | Fax: | | | | | y Lumbar | [phone] | [phone] | | | | | facet | Fax: | | | | | | arthropathy | [phone] | | | | | | | [...] | with | [address] | [address] Phone: | | | | | radiculopath | [place], | [phone] | | | | | y | [place] | Fax: | | | | | Procedures | [address] | [phone] | | | | | [place] OFFICE | Phone: | | | | | | CONSULTATION | [phone] | | | | | | NEW/ESTAB | Fax: | | | | | | PATIENT 60 | [phone] | | | | | | MIN [...] (Primary Dx); Lumbar | | | | [place], [place] | [place] [address] | radiculopathy; | | | | [address] | [phone] | Lumbar facet | | | | [phone] | | arthropathy; | | | | [...] f rom the original. FRANCOIS Lopez [address] [facility] [address] [place], [place] [address] FAX: NEUROSURGERY HISTORY AND PHYSICAL EXAMINATION CHIEF COMPLAINT: Chief Complaint Patient presents with New Patient Back pain HISTORY OF PRESENT ILLNESS: The patient is a 49 y.o. male with the complaint of back pain symptoms that began Around 199901/23/2009. Pain came on after doing long extended sessions o f [place] dancing. The patient describes low back pain [...] no apparent deficits with short or exterminator helper memory. CRANIAL NERVES: II: Acuity is intact. [...] Intrinsics 5 5 Ulnar Intrinsics 5 5 Swing Driver Strength 5 5 Hip Flexion 5 5 [...] upcoming months he would like to meet [facility] Dr. Morelos for evaluation and treatment and [...]
--- OUTSIDE RECORDS SUMMARY | ~2019-07-05 | XMS | Encounter Summary ---
Demographics + + + | Address | [address] | | | [place] [address] | + + + | Home Phone | | + + + | Preferred Language | Unknown | + + + | Marital Status | | + + + | Bahai Affiliation | Unknown | + + + [...] Team Providers + +------+ + | Care Music Instructor Name | Role | Phone | + +------+ + | Kanika Dominguez PA-C | PCP | | + +------+ + Encounter Details +--------+ + + + + | Date | Type | Department | Care Team | Description | +--------+ + + + + | 01/28/ | Hospital | [facility] | Conversion | Pain | | 2016 | Encounter | CONVERSION DEP [address] | Transaction, | | | | | [place] | Provider Unknown | | | | | [place] | | | | | | [address] | (Fax) | | | | | [phone] | | | +--------+ + + + [...]
--- OUTSIDE RECORDS SUMMARY | ~2019-07-05 | XMS | Encounter Summary ---
Demographics + + + | Address | [address] | | | [place] [address] | + + + | Home Phone | | + + + | Preferred Language | Unknown | + + + | Marital Status | | + + + | Christianity Affiliation | Unknown | + + + [...] Team Providers + +------+ + | Care Golf Starter And Ranger Name | Role | Phone | + +------+ + | Kanika Dominguez PA-C | PCP | | + +------+ + Encounter Details +--------+ + + + + | Date | Type | Department | Care Team | Description | +--------+ + + + + | 11/24/ | Hospital | [place] | Kanika Dominguez | Lumbar radiculopathy | | 2018 | Encounter | MED CTR XRAY [address] | [address] | | | | | [place] | [facility] | | | | | [place] [address] | [address] [place], [place] | | | | | [phone] | [address] | | | | | | [phone] | | | | | | | [...]
--- OUTSIDE RECORDS SUMMARY | ~2019-07-05 | XMS | Encounter Summary ---
Demographics + + + | Address | [address] | | | [place] [address] | + + + | Home Phone [...] Team Providers + +------+ + | Care Foundation Engineer Name | Role | Phone | [...] [address] | [address] [place] | (Primary Dx); | | | | [place] | [address] | Chronic low back | | | | [address] | | pain, unspecified | | | | [phone] | | back pain | | | [...] | | | | | | region ([facility]) | +--------+ + + + + Social [...]
--- OUTSIDE RECORDS SUMMARY | ~2019-07-05 | XMS | Encounter Summary ---
Demographics + + + | Address | [address] | | | [place] [address] | + + + | Home Phone | | + + + | Preferred Language | Unknown | + + + | Marital Status | | + + + | Hinduism Affiliation | Unknown | + + + | Race | Unknown | + + + | Ethnic Group | Unknown | + + + Author + + + | Author | [facility] | | | and [place] | + + + | Organization | [facility] | | [...] Team Providers + +------+ + | Care Clerk Name | Role | Phone | [...] [place] | | | | | | [address] | (Fax) | | | | | [phone] | | | +--------+ + + + [...]
--- OUTSIDE RECORDS SUMMARY | ~2019-07-05 | XMS | Encounter Summary ---
Demographics + + + | Address | [address] | | | [place] [address] | + + + | Home Phone [...] Team Providers + +------+ + | Care Logistics Director Name | Role | Phone | [...] | | region | [place], | [address] Phone: | | | | | Lumbar | [place] [address] | [phone] | | | | | radiculopath | Phone: | Fax: | | | | | y Lumbar | [phone] | [phone] | | | | | facet | Fax: | | | | | | arthropathy | [phone] | | | | | | | [...] + + | 07/25/ | Office | [facility] [place] | [place], | Chronic low back | | 2015 | Visit | PHYSIATRY [address] | [address] | pain (Primary Dx); | | | | [place], | [facility] [address] | DDD (degenerative | | | | [place] [address] | [place] [address] | disc disease), | | | | [phone] | [phone] | lumbar; Spinal | | | | [...] of blood sugars if you are diabetic. MCFP risk can lead to osteoporosis which is [...] of the procedure you must provide a lift driver to take you home. For all [...] approximately five years ago after a long Photowhoa ing session. He reports his pain is [...] of the left L4/L5 facet joints at [facility] in [facility], this was done 12/27/2014 he [...] Surgical History Procedure Laterality Date Facet neurotomy [place] Injection foramen epidural l/s Injection lumbar/sacral CURRENT [...] has no apparent deficits with short or intermission coordinator memory. He has appropriate fund of knowledge [...] ICD-10 Code M54.16 Gianfranco Rodriguez | [facility] | | presents to the fluoroscopy suite for a fluoroscopically-guided [facility] | | L4-L5 transforaminal epidural steroid [...] ST. | [address] | [place], [place] | [phone] | | [facility] | | [address] | | | - IMAGING | | [...]
--- OUTSIDE RECORDS SUMMARY | ~2019-07-05 | XMS | Encounter Summary ---
Demographics + + + | Address | [address] | | | [place] [address] | + + + | Home Phone [...] Team Providers + +------+ + | Care Pizza Hut Assistant Name | Role | Phone | + +------+ + | Kanika Dominguez PA-C | PCP | | + +------+ + Encounter Details +--------+ + + + + | Date | Type | Department | Care Team | Description | +--------+ + + + + | 07/02/ | Hospital | [facility] | Uday Quezada, | Back pain, | | 2016 | Encounter | MED CTR XRAY [address] | DO [address] | unspecified back | | | | [place] | [address] [place] | pain laterality, | | | | [place] [address] | [id number] | unspecified location | | | | [phone] | | | +--------+ + + + [...] LUMBAR MRI MAY 2015, LUMBAR RADIOGRAPHS | [facility] | | NOVEMBER 2011 FINDINGS: Five non [...] + + | Performing | Address | City/[facility] | Phone Number | | Organization | | | | + + + + + | [address] | [address] | [place] | [phone] | | [facility] | | [address] | | | - IMAGING | | | | + + + + + documented in this encounter Visit Diagnoses + + | Diagnosis | + + | Back pain, unspecified back pain laterality, unspecified location | + + documented in this encounter"
--- OUTSIDE RECORDS SUMMARY | ~2019-07-05 | XMS | Encounter Summary ---
Demographics + + + | Address | [address] | | | [place] [address] | + + + | Home Phone | | + + + | Preferred Language | Unknown | + + + | Marital Status | | + + + | Pentecostalism Affiliation | Unknown | + + + [...] Team Providers + +------+ + | Care Motor Generator Set Operator Name | Role | Phone | + +------+ + | Kainka Dominguez PA-C | PCP | | + [...] Medical Center | [place] | Preoperative | | | | [place] | [address] | clearance | | | | [address] | | | | | | [phone] | | | +--------+ + + + [...]
[~2019-07-05 13:39] MED LIST changes: +DOXYCYCLINE HY100 MG PO
--- OUTSIDE RECORDS SUMMARY | 2019-07-05 13:42 | XMS ---
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 Care History Medical/Surgical 03/21/2019 [facility] PATIENT- [facility] ELIGIBLE \T\middot;\T\nbsp; PLEASE REFER PATIENT TO [facility] FOR NON EMERGENT MEDICAL NEEDS. \T\middot;\T\nbsp; [facility] CAN SEE PATIENTS SAME DAY FOR APTS IF PATIENT CALLS FIRST THING IN THE MORNING. E.D. VISIT COUNT (12 MO.) [address] [facility] TOTAL 2 NOTE: Visits indicate total known visits. ED/UCC VISIT TRACKING (12 MO.) 07/05/2019 13:40 [facility] [place] TYPE: Emergency COMPLAINT: - HEAD LACREATION, FALL 03/20/2019 13:09 [facility] [place] TYPE: Emergency COMPLAINT: - HAND PAIN DIAGNOSES: - Other senior care (current) drug therapy - Personal history of nicotine dependence - Essential (primary) hypertension - Cellulitis of right finger - Pain in right hand INPATIENT VISIT TRACKING (12 MO.) No inpatient visits to display in this time frame [email or web address]
== END 2019-07-05 14:30 | disposition home or self-care (01) ==
LOC: ED 13:39
PROC: 0HQ0XZZ Repair Scalp Skin, External Approach (ICD-10-PCS; principal; 2019-07-05)
DX: S01.01XA Laceration without foreign body of scalp, initial encounter (principal); I10 Essential (primary) hypertension; Z87.891 Personal history of nicotine dependence; Z79.899 Other long term (current) drug therapy; W01.0XXA Fall on same level from slipping, tripping and stumbling without subsequent striking against object, initial encounter
CPT/HCPCS: 12002; 99282-25

== ENCOUNTER 2020-04-24 10:14 | Emergency (ER) | payer OTHER ==
[~2020-04-24] VITALS: Ht 180.3 cm; Wt 88.5 kg
== END 2020-04-24 11:48 | disposition home or self-care (01) ==
LOC: ED 10:14
DX: S90.32XA Contusion of left foot, initial encounter (principal); I10 Essential (primary) hypertension; Z79.899 Other long term (current) drug therapy; W23.1XXA Caught, crushed, jammed, or pinched between stationary objects, initial encounter
CPT/HCPCS: 73630; 99283-25

== ENCOUNTER 2020-04-27 14:21 | Emergency (ER) | payer OTHER ==
[~2020-04-27] VITALS: Ht 180.3 cm; Wt 88.5 kg
--- OUTSIDE RECORDS SUMMARY | 2020-04-27 14:24 | XMS ---
PreManage Notification: [place] Security Fisheries Technician Events No recent Security Events currently on file CRITERIA MET - [facility] - 2 Visits in 30 Days CARE PROVIDERS HOWIE DORSEY Physician Captain Cannery Tender: Surgical 03/21/2019-Current PHONE: Unknown ANDRZEJ PEREZ Dentist: Advice Line Rn 03/21/2019-Current PHONE: [phone] Moris has no Care Guidelines for this patient. Care History Medical/Surgical 03/21/2019 [facility] PATIENT- [facility] ELIGIBLE \T\middot;\T\nbsp; PLEASE REFER PATIENT TO [facility] FOR NON EMERGENT MEDICAL NEEDS. \T\middot;\T\nbsp; [facility] CAN SEE PATIENTS SAME DAY FOR APTS IF PATIENT CALLS FIRST THING IN THE MORNING. E.D. VISIT COUNT (12 MO.) [address] [facility] [place] TOTAL 3 NOTE: Visits indicate total known visits. 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 [place] TYPE: Emergency COMPLAINT: - HEAD LACREATION, FALL DIAGNOSES: - Laceration without foreign body of scalp, initial encounter - Fall on same level from slipping, tripping and stumbling without subsequent striking against object, initial encounter - Essential (primary) hypertension - Personal history of nicotine dependence - Other chcf (current) drug therapy INPATIENT VISIT TRACKING (12 MO.) No inpatient visits to display in this time frame [email or web address]
== END 2020-04-27 16:06 | disposition home or self-care (01) ==
LOC: ED 14:21
DX: E29.1 Testicular hypofunction (principal); Z76.0 Encounter for issue of repeat prescription; I10 Essential (primary) hypertension; Z79.899 Other long term (current) drug therapy
CPT/HCPCS: 96372; 99281; J1071

== ENCOUNTER 2020-05-07 20:03 | Emergency (ER) | payer OTHER ==
[~2020-05-07] VITALS: Ht 180.3 cm; Wt 83.9 kg
--- OUTSIDE RECORDS SUMMARY | 2020-05-07 20:06 | XMS ---
PreManage Notification: [place] Security Grooming Assistant Events No recent Security Events currently on file CRITERIA MET - [facility] - 2 Visits in 30 Days CARE PROVIDERS HOWIE DORSEY Physician Airplane Gastank Liner Assembler: Surgical 03/21/2019-Current PHONE: Unknown ANDRZEJ PEREZ Dentist: Geropsychologist 03/21/2019-Current PHONE: [phone] Moris has no Care Guidelines for this patient. Care History Medical/Surgical 04/30/2020 [facility] - PATIENT DISCHARGED FROM [facility]- DR PEREZ- DUE TO MULTIPLE NO SHOW APTS. - PATIENT IS ELIGIBLE TO ESTABLISH CARE WITH A PROVIDER AT [facility] BUT AT THIS TIME DOES NOT WANT TO. - [facility] CALLED AND LEFT PATIENT A VOICEMAIL. 03/21/2019 [facility] PATIENT- [facility] ELIGIBLE \T\middot;\T\nbsp; PLEASE REFER PATIENT TO [facility] FOR NON EMERGENT MEDICAL NEEDS. \T\middot;\T\nbsp; [facility] CAN SEE PATIENTS SAME DAY FOR APTS IF PATIENT CALLS FIRST THING IN THE MORNING. Ivon VISIT COUNT (12 MO.) 4 [facility] TOTAL 4 NOTE: Visits indicate total known visits. 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 [place] [place] [facility] [place] TYPE: Emergency COMPLAINT: - HEAD LACREATION, FALL DIAGNOSES: - Laceration without foreign body of scalp, initial encounter - Fall on same level from slipping, tripping and stumbling without subsequent striking against object, initial encounter - Essential (primary) hypertension - Personal history of nicotine dependence - Other retirement (current) drug therapy INPATIENT VISIT TRACKING (12 MO.) No inpatient visits to display in this time frame [email or web address]
== END 2020-05-07 21:34 | disposition home or self-care (01) ==
LOC: ED 20:03
DX: Z76.0 Encounter for issue of repeat prescription (principal); I10 Essential (primary) hypertension
CPT/HCPCS: 99281

== ENCOUNTER 2021-01-08 14:52 | Emergency (ER) | payer OTHER ==
[~2021-01-08] VITALS: Ht 180.3 cm; Wt 83.9 kg
--- OUTSIDE RECORDS SUMMARY | 2021-01-08 14:54 | XMS ---
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 Care History Medical/Surgical 05/14/2020 [facility] - PATIENT EDUCATED BY ED PHYSICIAN DR TEJADA- TO NOT COME TO THE\T\nbsp; ED FOR TESTOSTERONE INJECTIONS. PATIENT CAN ESTABLISH CARE WITH PROVIDERS IN THE AREA FOR FURTHER FOLLOW UP. 04/30/2020 [facility] - PATIENT DISCHARGED FROM [facility]- DR PEREZ- DUE TO MULTIPLE NO SHOW APTS. - PATIENT IS ELIGIBLE TO ESTABLISH CARE WITH A PROVIDER AT [facility] BUT AT THIS TIME DOES NOT WANT TO. - [facility] CALLED AND LEFT PATIENT A VOICEMAIL. 03/21/2019 [facility] PATIENT- [facility] ELIGIBLE \T\middot;\T\nbsp; PLEASE REFER PATIENT TO [facility] FOR NON EMERGENT MEDICAL NEEDS. \T\middot;\T\nbsp; [facility] CAN SEE PATIENTS SAME DAY FOR APTS IF PATIENT CALLS FIRST THING IN THE MORNING. Ivon VISIT COUNT (12 MO.) 4 [facility] TOTAL 4 NOTE: Visits indicate total known visits. 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
[2021-01-08] MEDS ORDERED: SILDENAFIL CITR50 MG PO (15:22)
[2021-01-08] MEDS ORDERED: LISINOPRIL10 MG PO (15:22)
== END 2021-01-08 17:25 | disposition home or self-care (01) ==
LOC: ED 14:52
DX: R42 Dizziness and giddiness (principal); H61.22 Impacted cerumen, left ear; I10 Essential (primary) hypertension; Z79.899 Other long term (current) drug therapy
CPT/HCPCS: 99284

== ENCOUNTER 2024-02-24 08:47 | Emergency (ER) | payer OTHER ==
[~2024-02-24] VITALS: Ht 180.3 cm; Wt 78.2 kg
[~2024-02-24 08:47] MED LIST changes: +CYCLOBENZAPRINE10 MG PO; +LISINOPRIL10 MG PO; +SILDENAFIL CITR50 MG PO
[2024-02-24] MEDS ORDERED: BISACODYL10 MG PR (08:58)
[2024-02-24] MEDS ORDERED: ACETAMINOPHEN500 MG PO (08:58)
[2024-02-24] MEDS ORDERED: CALCIUM ANTACI200 MG PO (08:58)
[2024-02-24] MEDS ORDERED: TAMSULOSIN HCL0.4 MG PO (08:59)
[2024-02-24] MEDS ORDERED: TIZANIDINE HCL2 MG PO (08:59)
[2024-02-24] MEDS ORDERED: POLYETHYLENE GL17 GM PO (08:59)
[2024-02-24] MEDS ORDERED: PREGABALIN75 MG PO (08:59)
[2024-02-24] MEDS ORDERED: ONDANSETRON ODT8 MG PO (08:59)
[2024-02-24] MEDS ORDERED: NALOXONE HCL4 MG NS (08:59)
[2024-02-24] MEDS ORDERED: SENEXON-S 50-81 EACH PO (08:59)
[2024-02-24] MEDS ORDERED: OXYCODONE HCL5 MG PO (08:59)
[2024-02-24 09:16] VITALS: BP 146/98
== END 2024-02-24 09:16 | disposition home or self-care (01) ==
LOC: ED 08:47
DX: Z47.89 Encounter for other orthopedic aftercare (principal); I10 Essential (primary) hypertension; Z79.899 Other long term (current) drug therapy
CPT/HCPCS: 99282